=== PATIENT | male | born 1955 | race Caucasian/White ===

== ENCOUNTER 2016-09-19 11:46 | Inpatient (IN) | payer MEDICAID, MEDICARE ==
[2016-09-19 12:54] LABS: Hematocrit 49 % (42-52); Hemoglobin 16.7 g/dl (14.0-18.0); Mean Corpuscular HGB Conc 34 g/dl (31-36); Mean Corpuscular Hemoglobin 30 pg (27-31); Mean Corpuscular Volume 89 fL (80-94); Mean Platelet Volume 9 um3 (7.4-10.4); Red Blood Count 5.51 10^6/ul (4.0-5.4); Red Cell Distribution Width 13 % (10.5-15); White Blood Count 9.8 10^3/ul (3.5-10.8)
[2016-09-19 13:06] LABS: ALT 23 U/L (7-52); AST 19 U/L (13-39); Albumin 4.1 g/dL (3.2-5.2); Alkaline Phosphatase 57 U/L (34-104); Anion Gap 7 mmol/L (2-11); BUN/Creatinine Ratio 19.8 (8-20); Blood Urea Nitrogen 16 mg/dL (6-24); CO2 Carbon Dioxide 24 mmol/L (22-32); Calcium 9.4 mg/dL (8.6-10.3); Chloride 103 mmol/L (101-111); EGFR Non-African American 97.2 (>60); Globulin 3.1 g/dL (2-4); Glucose 107 mg/dL (70-100); Sodium 134 mmol/L (133-145); Total Protein 7.2 g/dL (6.4-8.9)
[2016-09-19 13:35] LABS: Acetaminophen < 15 mcg/mL; Alcohol < 10 mg/dL (<10); Salicylate < 2.50 mg/dL (<30); Valproic Acid < 13.0 mcg/mL (50-100)
[2016-09-19 13:43] LABS: TSH (Thyroid Stimulating Horm) 0.93 mcIU/mL (0.34-5.60)
[2016-09-19 14:59] LABS: Urine Bilirubin Negative (Negative); Urine Glucose Negative (Negative); Urine Nitrite Negative (Negative)
[2016-09-19 15:09] LABS: Benzodiazepine Urine Screen None Detected (None Detect)
[2016-09-19] MEDS ORDERED: diPHENhydraMINE PO* 50 MG PO ONE (21:19)
[2016-09-19] MEDS ORDERED: LORazepam TAB(*) 1 MG PO ONE (21:19)
[2016-09-19] MEDS ORDERED: Haloperidol TAB* 5 MG PO ONE (21:19)
--- NOTE | 2016-09-19 22:54 | ED ---
Karen Rose Alok, scribed for Lorne Mijares MD on 09/19/16 at 1336 . Psychiatric Complaint - HPI Summary HPI Summary: 60 y/o male presents to the ED with delusions, disjointed thoughts, and no apparent connection to reality. Pt has h/o bipolarism with medications that he has not been taking. - History Of Current Complaint Chief Complaint: EDMentalHealth Time Seen by Provider: 09/19/16 13:12 Hx Obtained From: Patient Onset/Duration: Gradual Onset, Lasting Days, Still Present Timing: Constant Severity Initially: Moderate Severity Currently: Moderate Aggravating Factor(s): Nothing Alleviating Factor(s): Nothing Associated Signs And Symptoms: Positive: Confused - Allergies/Home Medications Allergies/Adverse Reactions: Allergies Allergy/AdvReac Type Severity Reaction Status Date / Time No Known Allergies Allergy Verified 01/24/13 12:02 Home Medications: Home Medications ARIPiprazole TAB* [Abilify 15 MG TAB*] 15 mg PO DAILY 09/19/16 [History Confirmed 09/19/16] Bupropion HCl [Wellbutrin Sr] 150 mg PO DAILY 09/19/16 [History Confirmed ] Divalproex Sodium [Depakote ER] 2,000 mg PO BEDTIME 09/19/16 [History Confirmed 09/19/16] Mobic 15 mg PO DAILY 09/19/16 [History Confirmed 09/19/16] Vitamin D3 1,000 units PO DAILY 09/19/16 [History Confirmed 09/19/16] PMH/Surg Hx/FS Hx/Imm Hx Endocrine/Hematology History: Denies: Hx Anticoagulant Therapy, Hx Diabetes, Hx Thyroid Disease Cardiovascular History: Denies: Hx Hypertension, Hx Pacemaker/ICD Respiratory History: Reports: Hx Chronic Obstructive Pulmonary Disease (COPD) Denies: Hx Asthma History: Denies: Hx Renal Disease Neurological History: Denies: Hx Dementia, Hx Seizures Psychiatric History: Reports: Hx Substance Abuse - Surgical History Surgery Procedure, Year, and Place: abdominal surgery - removal of ganglion. 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 Infectious Disease History: No Infectious Disease History: Denies: Hx Hepatitis, Hx Human Immunodeficiency Virus (HIV), History Other Infectious Disease, Traveled Outside the [place] in Last 30 Days - Family History Known Family History: Negative: Cardiac Disease, Hypertension, Diabetes - Social History Occupation: Employed Full-time Substance Use Type: Reports: None Review of Systems Negative: Fever ENT: Negative Cardiovascular: Negative Respiratory: Negative Gastrointestinal: Negative Genitourinary: Negative Musculoskeletal: Negative Skin: Negative Neurological: Negative Positive: Other - confused All Other Systems Reviewed And Are Negative: Yes Physical Exam Triage Information Reviewed: Yes Vital Signs On Initial Exam: Initial Vitals Temp Pulse Resp BP Pulse Ox 97.6 F 87 12 149/83 97 09/19/16 12:14 09/19/16 12:14 09/19/16 12:14 09/19/16 12:14 09/19/16 12:14 Vital Signs Reviewed: Yes Appearance: Positive: Well-Appearing - Patient appears disjointed from reality with apparent delusions, No Pain Distress Skin: Positive: Warm, Skin Color Reflects Adequate Perfusion, Dry Head/Face: Positive: Normal Head/Face Inspection Eyes: Positive: EOMI, KARTHIK ENT: Positive: Normal ENT inspection Neck: Positive: Supple, Nontender Respiratory/Lung Sounds: Positive: Clear to Auscultation, Breath Sounds Present Cardiovascular: Positive: RRR Abdomen Description: Positive: Nontender, Soft Bowel Sounds: Positive: Present Musculoskeletal: Positive: Normal, Strength/ROM Intact Neurological: Positive: Normal, Sensory/Motor Intact, Alert, Oriented to Person Place, Time Psychiatric: Positive: Other - Patient appears disjointed from reality with apparent delusions. Diagnostics - Vital Signs Vital Signs Temp Pulse Resp BP Pulse Ox 09/19/16 12:14 97.6 F 87 12 149/83 97 - Laboratory Lab Results: Lab Results 09/19/16 09/19/16 Range/Units 12:10 12:10 WBC 9.8 (3.5-10.8) 10^3/ul RBC 5.51 H (4.0-5.4) 10^6/ul Hgb 16.7 (14.0-18.0) g/dl Hct 49 (42-52) % MCV 89 (80-94) fL MCH 30 (27-31) pg MCHC 34 (31-36) g/dl RDW 13 (10.5-15) % Plt Count 254 (150-450) 10^3/ul MPV 9 (7.4-10.4) um3 Neut % (Auto) 64.9 (38-83) % Lymph % (Auto) 18.8 L (25-47) % [place] % (Auto) 14.7 H (1-9) % Eos % (Auto) 0.8 (0-6) % Baso % (Auto) 0.8 (0-2) % Absolute Neuts (auto) 6.4 (1.5-7.7) 10^3/ul Absolute Lymphs (auto) 1.8 (1.0-4.8) 10^3/ul Absolute Monos (auto) 1.4 H (0-0.8) 10^3/ul Absolute Eos (auto) 0.1 (0-0.6) 10^3/ul Absolute Basos (auto) 0.1 (0-0.2) 10^3/ul Absolute Nucleated RBC 0.01 10^3/ul Nucleated RBC % 0.1 Sodium 134 (133-145) mmol/L Potassium 4.0 (3.5-5.0) mmol/L Chloride 103 (101-111) mmol/L Carbon Dioxide 24 (22-32) mmol/L Anion Gap 7 (2-11) mmol/L BUN 16 (6-24) mg/dL Creatinine 0.81 (0.67-1.17) mg/dL Est GFR ( Amer) 125.0 (>60) Est GFR (Non-Af Amer) 97.2 (>60) BUN/Creatinine Ratio 19.8 (8-20) Glucose 107 H (70-100) mg/dL Calcium 9.4 (8.6-10.3) mg/dL Total Bilirubin 0.50 (0.2-1.0) mg/dL AST 19 (13-39) U/L ALT 23 (7-52) U/L Alkaline Phosphatase 57 (34-104) U/L Total Protein 7.2 (6.4-8.9) g/dL Albumin 4.1 (3.2-5.2) g/dL Globulin 3.1 (2-4) g/dL Albumin/Globulin Ratio 1.3 (1-3) TSH Pending Salicylates Pending Acetaminophen Pending Valproic Acid Pending Serum Alcohol Pending Result Diagrams: 09/19/16 12:10 09/19/16 12:10 Lab Statement: Any lab studies that have been ordered have been reviewed, and results considered in the medical decision making process. Course/Dx - Course Course Of Treatment: NO CRITICAL CARE TIME Assessment/Plan: DISPOSITION/MHE PENDING AT SHIFT CHANGE. - Differential Dx/Clinical Impression Provider Diagnosis: Mental health problem Discharge - Discharge Plan Condition: Stable Disposition: PSYCHIATRIC FACILITY-[facility] [place] Referrals: Earline Phillips MS [Primary Care Provider] - The documentation as recorded by the Karen maxwell Alok accurately reflects the service I personally performed and the decisions made by , Lorne Mijares MD.
[2016-09-20] MEDS ORDERED: ARIPiprazole TAB* 15 MG PO ONE (08:57)
[2016-09-20] MEDS ORDERED: buPROPion SR TAB.SR* 150 MG PO ONE (08:57)
[2016-09-20] MEDS ORDERED: Furosemide TAB* 40 MG PO ONE (08:57)
[2016-09-20] MEDS: Divalproex ER TAB(*) 500 MG PO SCH (23:32)
[2016-09-21] MEDS: Terazosin CAP* 1 MG PO SCH ×2 (04:04→21:13)
[2016-09-21] MEDS: Furosemide TAB* 40 MG PO SCH ×2 (04:04→10:16)
[2016-09-21] MEDS: ARIPiprazole TAB* 15 MG PO SCH ×2 (04:05→10:17)
[2016-09-21] MEDS: BuPROPion XL* 150 MG TAB.XL PO SCH (10:17)
[2016-09-21] MEDS: Cholecalciferol TAB* 1000 UNITS PO SCH ×2 (10:17→10:29)
--- NOTE | 2016-09-21 11:57 | PN ---
MHU: Group Therapy Note - Service Type Service Type: 04705 Group Psychotherapy - Cognitive Behavioral Therapy (CBT): Patient presents with high volume of speech that impresses as being coherent within the context of self-report, but is tangential and off topic in group context. Concerns regarding disorganization of thought are apparent.
[2016-09-21] MEDS ORDERED: Mouth Piece, Nicotine* 1 EACH CARTRIDGE INH ONE (16:00)
[2016-09-21] MEDS: Nicotine Inhaler* 10 MG AMP INH PRN (16:35)
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
[2016-09-21] MEDS: Divalproex ER TAB(*) 500 MG PO SCH (21:13)
[2016-09-22] MEDS: BuPROPion XL* 150 MG TAB.XL PO SCH (07:39)
[2016-09-22] MEDS: Furosemide TAB* 40 MG PO SCH (07:39)
[2016-09-22] MEDS: Cholecalciferol TAB* 1000 UNITS PO SCH (07:39)
[2016-09-22] MEDS: ARIPiprazole TAB* 15 MG PO SCH (07:39)
--- NOTE | 2016-09-22 14:25 | PN ---
Subjective - Subjective Service Type: 53217 Hosp care 15 min low complexity Subjective: The patient remains circumstantial and has difficulties arriving at his point when speaking or, in particular, answering questions. He is somewhat perseverative about his sister, Martha, in [place], sending him his shoebox full of medications, as the [place] only dispenses 90 Day supplies at a time with no duplication. I spoke with this sibling, Martha Postal ([phone]), who reiterates that she is incapable of taking care of Jacinto and hoping that he will be placed in some type of supervised setting. She indicates that the girlfriend he visited at the [facility] is there for methamphetamine production charges and has been grifting money from him for several months. Objective - Appearance Appearance: Obese Dysmorphic Features: No Hygiene: Normal Grooming: Disheveled - Behavior Psychomotor Activities: Abnormal-Increased Exhibits Abnormal Movement: Yes - Attitude and Relatedness Attitude and Relatedness: Psychotically Related Eye Contact: Good - Speech Quality: Pressured Latencies: Short Quantity: Copious - Mood Patient's Decription of Mood: "Okay" - Affect Observed Affect: Euphoric Affect Consistent with: Euphoria - Thought Process Patient's Thought Process: Circumstantial Thought Content: Yes Paranoid Ideation, No Passive Wish, No Suicidal Planning, No Homicidal Ideation - Sensorium Experiencing Hallucinations: No, Sensorium is Clear Type of Hallucinations: Visual: No, Auditory: No, Command: No - Level of Consciousness Level of Consciousness: Alert Orientation: Yes Intact, Yes Orientated to Time, Yes Orientated to Place, Yes Orientated to Person - Impulse Control Impulse Control: Poor - Insight and Judgement Insight and Judgement: Impaired - Group Participation Particating in Group Activities: No - Medication Management Medication Management Adherence: Yes Assessment - Assessment Merits Inpatient Hospitalization: For Immediate Safety, For Stabilization Inpatient DSM-IV Dx: Bipolar DO, Type I, MRE Manic, severe with psychotic features Clinical Impression: 60 y.o. , white, male [employer] with a history of chronic cannabis abuse and bipolarity who is admitted involuntarily due to bizarre and disruptive behavior in the community. The patient just came back to the [facility] from [facility], where he has been residing with his sister since 01/10, and has been non-adherent with medications and is now homeless. Plan - Plan Treatment Plan: Name: JACINTO LANDRY SR Birthdate: 1955 [id number] We have continued his outpatient VA medications, including bupropion, Depakote and aripiprazole. Await med effect. Patient will likely need placement. Continued Medication Management: Continue Outpt Medication Medications: Current Medications Aripiprazole (Abilify Tab*) 15 mg PO DAILY SRINIVAS Last Admin: 09/22/16 07:39 Dose: 15 mg Bupropion HCl (Wellbutrin Xl *) 150 mg PO DAILY SRINIVAS PRN Reason: Protocol Last Admin: 09/22/16 07:39 Dose: 150 mg Cholecalciferol (Vitamin D Tab*) 1,000 units PO DAILY SRIINVAS Last Admin: 09/22/16 07:39 Dose: 1,000 units Divalproex Sodium (Depakote Er Tab(*)) 2,000 mg PO BEDTIME SRINIVAS Last Admin: 09/21/16 21:13 Dose: 2,000 mg Furosemide (Lasix Tab*) 40 mg PO DAILY SRINIVAS Last Admin: 09/22/16 07:39 Dose: 40 mg Nicotine (Nicotine Inhaler*) 10 mg INH Q2H PRN PRN Reason: CRAVING Last Admin: 09/21/16 16:35 Dose: 10 mg Terazosin HCl (Hytrin Cap*) 2 mg PO BEDTIME SRINIVAS Last Admin: 09/21/16 21:13 Dose: 2 mg - Discharge Plan Discharge Plan: Inpatient Hospitalization
[2016-09-22] MEDS ORDERED: Mouth Piece, Nicotine* 1 EACH CARTRIDGE ONE (17:52)
[2016-09-22] MEDS: Nicotine Inhaler* 10 MG AMP INH PRN (17:52)
[2016-09-22] MEDS: Acetaminophen TAB* 325 MG PO PRN (18:16)
[2016-09-22] MEDS: Divalproex ER TAB(*) 500 MG PO SCH (21:06)
[2016-09-22] MEDS: Terazosin CAP* 1 MG PO SCH (21:07)
[2016-09-23] MEDS: BuPROPion XL* 150 MG TAB.XL PO SCH (09:42)
[2016-09-23] MEDS: ARIPiprazole TAB* 15 MG PO SCH (09:42)
[2016-09-23] MEDS: Cholecalciferol TAB* 1000 UNITS PO SCH (09:42)
[2016-09-23] MEDS: Furosemide TAB* 40 MG PO SCH (09:42)
[2016-09-23] MEDS: Acetaminophen TAB* 325 MG PO PRN (18:28)
[2016-09-23] MEDS: Terazosin CAP* 1 MG PO SCH (20:27)
[2016-09-23] MEDS: Divalproex ER TAB(*) 500 MG PO SCH (20:27)
[2016-09-24] MEDS: ARIPiprazole TAB* 15 MG PO SCH (08:16)
[2016-09-24] MEDS: Cholecalciferol TAB* 1000 UNITS PO SCH (08:16)
[2016-09-24] MEDS: Furosemide TAB* 40 MG PO SCH (08:16)
[2016-09-24] MEDS: BuPROPion XL* 150 MG TAB.XL PO SCH (08:16)
--- NOTE | 2016-09-24 13:23 | PN ---
Subjective - Subjective Service Type: 91568 Hosp care 15 min low complexity Subjective: Mr. Gill was seen today on follow-up. Case supervision by Dr. Aleks Collado. Today, Mr. Gill reported that he has had a good nights sleep, and reports good appetite. He is currently denying depressive symptoms, and is denying any medication side effects. He was verbose in his responses to questions and at times, circumstantial. He verbalized concerns today over his sister who is his rep payee, and indicated that he wanted a new rep. payee. I encouraged him to discuss issues with his sister first to see if he could resolve any issues with her & he agreed that it "might be best" if he did this. No new issues reported. Reviewed case with Dr. Collado. Objective - Appearance Appearance: Obese Dysmorphic Features: No Hygiene: Normal Grooming: Disheveled - Behavior Psychomotor Activities: Normal Exhibits Abnormal Movement: No - Attitude and Relatedness Attitude and Relatedness: Cooperative Eye Contact: Good - Speech Quality: Unpressured Latencies: Normal Quantity: Copious - Mood Patient's Decription of Mood: "Good" - Affect Observed Affect: Non-labile Affect Consistent with: Euthymia - Thought Process Patient's Thought Process: Circumstantial - At times Thought Content: No Passive Wish, No Suicidal Planning, No Homicidal Ideation, No Paranoid Ideation - Sensorium Experiencing Hallucinations: No, Sensorium is Clear - Level of Consciousness Level of Consciousness: Alert Orientation: Yes Intact - Impulse Control Impulse Control: Poor - Insight and Judgement Insight and Judgement: Impaired Assessment - Assessment Inpatient DSM-IV Dx: Bipolar DO, Type I, MRE Manic, severe with psychotic features Clinical Impression: Mr. Gill is a 60 year old male admitted to [facility] with bipolar disorder and cannabis use disorder, secondary to bizarre behavior. He remains in fair behavioral control, and appears to be accepting of treatment. Symptom control entirely too tenuous at present to consider discharge. Plan - Plan Treatment Plan: Name: ANASTASIA GILL SR Birthdate: 1955 [id number] Medications: Current Medications Acetaminophen (Tylenol Tab*) 650 mg PO Q4H PRN PRN Reason: PAIN Last Admin: 09/23/16 18:28 Dose: 650 mg Aripiprazole (Abilify Tab*) 15 mg PO DAILY SRINIVAS Last Admin: 09/24/16 08:16 Dose: 15 mg Bupropion HCl (Wellbutrin Xl *) 150 mg PO DAILY SRINIVAS PRN Reason: Protocol Last Admin: 09/24/16 08:16 Dose: 150 mg Cholecalciferol (Vitamin D Tab*) 1,000 units PO DAILY SRINIVAS Last Admin: 09/24/16 08:16 Dose: 1,000 units Divalproex Sodium (Depakote Er Tab(*)) 2,000 mg PO BEDTIME SRINIVAS Last Admin: 09/23/16 20:27 Dose: 2,000 mg Furosemide (Lasix Tab*) 40 mg PO DAILY SRINIVAS Last Admin: 09/24/16 08:16 Dose: 40 mg Nicotine (Nicotine Inhaler*) 10 mg INH Q2H PRN PRN Reason: CRAVING Last Admin: 09/22/16 17:52 Dose: 10 mg Terazosin HCl (Hytrin Cap*) 2 mg PO BEDTIME SRINIVAS Last Admin: 09/23/16 20:27 Dose: 2 mg
[2016-09-24] MEDS: Terazosin CAP* 1 MG PO SCH (20:55)
[2016-09-24] MEDS: Divalproex ER TAB(*) 500 MG PO SCH (20:55)
[2016-09-25] MEDS: Acetaminophen TAB* 325 MG PO PRN (06:28)
[2016-09-25] MEDS: Furosemide TAB* 40 MG PO SCH (09:54)
[2016-09-25] MEDS: ARIPiprazole TAB* 15 MG PO SCH (09:54)
[2016-09-25] MEDS: BuPROPion XL* 150 MG TAB.XL PO SCH (09:54)
[2016-09-25] MEDS: Cholecalciferol TAB* 1000 UNITS PO SCH (09:54)
[2016-09-25] MEDS: Nicotine Inhaler* 10 MG AMP INH PRN (13:24)
--- NOTE | 2016-09-25 13:29 | PN ---
Subjective - Subjective Service Type: 88089 Hosp care 15 min low complexity Subjective: The patient is calm and cooperative and has not represented any behavioral challenges on the unit. He gives me the name and phone number today of a cousin , Andres Knutson, who lives in [place], whom he states he can live with. The patient denies SI or HI. Objective - Appearance Appearance: Obese Dysmorphic Features: No Hygiene: Normal Grooming: Fairly Well Kept - Behavior Psychomotor Activities: Abnormal-Increased Exhibits Abnormal Movement: Yes - Attitude and Relatedness Attitude and Relatedness: Cooperative Eye Contact: Good - Speech Quality: Unpressured Latencies: Normal Quantity: Copious - Mood Patient's Decription of Mood: "Great" - Affect Observed Affect: Good Affect Consistent with: Euthymia - Thought Process Patient's Thought Process: Coherent, Circumstantial Thought Content: Yes Paranoid Ideation, No Passive Wish, No Suicidal Planning, No Homicidal Ideation - Sensorium Experiencing Hallucinations: No, Sensorium is Clear Type of Hallucinations: Visual: No, Auditory: No, Command: No - Level of Consciousness Level of Consciousness: Alert Orientation: Yes Intact, Yes Orientated to Time, Yes Orientated to Place, Yes Orientated to Person - Impulse Control Impulse Control: Tenuous - Insight and Judgement Insight and Judgement: Fair - Group Participation Particating in Group Activities: No - Medication Management Medication Management Adherence: Yes Assessment - Assessment Merits Inpatient Hospitalization: Consolidate Improvements, Pending Safe DC Plan Inpatient DSM-IV Dx: Bipolar DO, Type I, MRE Manic, severe with psychotic features Clinical Impression: 60 y.o. , white, male [employer] with a history of chronic cannabis abuse and bipolarity who is admitted involuntarily due to bizarre and disruptive behavior in the community. The patient just came back to the [facility] from [facility], where he has been residing with his sister since 01/10, and has been non-adherent with medications and is now homeless. Plan - Plan Treatment Plan: Name: ANASTASIA LANDRY Birthdate: 1955 [id number] We have continued his outpatient [facility] medications, including bupropion, Depakote and aripiprazole. Will check lipids, HgbA1c and VPA level in the AM. Patient will likely need placement. Continued Medication Management: Continue Outpt Medication Medications: Current Medications Acetaminophen (Tylenol Tab*) 650 mg PO Q4H PRN PRN Reason: PAIN Last Admin: 09/25/16 06:28 Dose: 650 mg Aripiprazole (Abilify Tab*) 15 mg PO DAILY [facility] Last Admin: 09/25/16 09:54 Dose: 15 mg Bupropion HCl (Wellbutrin Xl *) 150 mg PO DAILY [facility] PRN Reason: Protocol Last Admin: 09/25/16 09:54 Dose: 150 mg Cholecalciferol (Vitamin D Tab*) 1,000 units PO DAILY [facility] Last Admin: 09/25/16 09:54 Dose: 1,000 units Divalproex Sodium (Depakote Er Tab(*)) 2,000 mg PO BEDTIME [facility] Last Admin: 09/24/16 20:55 Dose: 2,000 mg Furosemide (Lasix Tab*) 40 mg PO DAILY [facility] Last Admin: 09/25/16 09:54 Dose: 40 mg Nicotine (Nicotine Inhaler*) 10 mg INH Q2H PRN PRN Reason: CRAVING Last Admin: 09/25/16 13:24 Dose: 10 mg Terazosin HCl (Hytrin Cap*) 2 mg PO BEDTIME [facility] Last Admin: 09/24/16 20:55 Dose: 2 mg - Discharge Plan Discharge Plan: Inpatient Hospitalization
[2016-09-25] MEDS: Divalproex ER TAB(*) 500 MG PO SCH (21:46)
[2016-09-25] MEDS: Terazosin CAP* 1 MG PO SCH (21:47)
[2016-09-26 09:11] LABS: HDL Cholesterol 59.2 mg/dL
[2016-09-26] MEDS: BuPROPion XL* 150 MG TAB.XL PO SCH (09:30)
[2016-09-26] MEDS: ARIPiprazole TAB* 15 MG PO SCH (09:30)
[2016-09-26] MEDS: Cholecalciferol TAB* 1000 UNITS PO SCH (09:30)
[2016-09-26] MEDS: Furosemide TAB* 40 MG PO SCH (09:32)
--- NOTE | 2016-09-26 10:56 | PN ---
Subjective - Subjective Service Type: 42133 Hosp care 15 min low complexity Subjective: Jacinto is calm and cooperative. Requesting d/c to his cousin Cynthias in [place], [place]. staff indicates we have not yet been able to contact this relative. The patient is tolerating his medications well and is better organized than admission, although his sister, interacting with , expressed her opinion that Jacinto is not yet back to his baseline. His speech is somewhat rambling and he is fixated on visiting his girlfriend in the [facility] long term, where she is incarcerated on drug charges. Objective - Appearance Appearance: Obese Hygiene: Normal Grooming: Fairly Well Kept - Behavior Psychomotor Activities: Normal Exhibits Abnormal Movement: No - Attitude and Relatedness Attitude and Relatedness: Cooperative Eye Contact: Good - Speech Quality: Unpressured Latencies: Normal Quantity: Appropriate - Mood Patient's Decription of Mood: "Good" - Affect Observed Affect: Expansive Affect Consistent with: Euthymia - Thought Process Patient's Thought Process: Circumstantial Thought Content: No Passive Wish, No Suicidal Planning, No Homicidal Ideation, No Paranoid Ideation - Sensorium Experiencing Hallucinations: No, Sensorium is Clear Type of Hallucinations: Visual: No, Auditory: No, Command: No - Level of Consciousness Level of Consciousness: Alert - Impulse Control Impulse Control: Tenuous - Insight and Judgement Insight and Judgement: Fair - Group Participation Particating in Group Activities: No - Medication Management Medication Management Adherence: Yes Assessment - Assessment Merits Inpatient Hospitalization: For Immediate Safety, For Stabilization Inpatient DSM-IV Dx: Bipolar DO, Type I, MRE Manic, severe with psychotic features Clinical Impression: 60 y.o. , white, male [employer] with a history of chronic cannabis abuse and bipolarity who is admitted involuntarily due to bizarre and disruptive behavior in the community. The patient just came back to the [facility] from [facility], where he has been residing with his sister since 01/10, and has been non-adherent with medications and is now homeless. Plan - Plan Treatment Plan: Name: JACINTO LANDRY Birthdate: 1955 [id number] We have continued his outpatient VA medications, including bupropion, Depakote and aripiprazole. VPA level is therapeutic. Patient needs placement. Continued Medication Management: Continue Outpt Medication Medications: Current Medications Acetaminophen (Tylenol Tab*) 650 mg PO Q4H PRN PRN Reason: PAIN Last Admin: 09/25/16 06:28 Dose: 650 mg Aripiprazole (Abilify Tab*) 15 mg PO DAILY [facility] Last Admin: 09/26/16 09:30 Dose: 15 mg Bupropion HCl (Wellbutrin Xl *) 150 mg PO DAILY SRINIVAS PRN Reason: Protocol Last Admin: 09/26/16 09:30 Dose: 150 mg Cholecalciferol (Vitamin D Tab*) 1,000 units PO DAILY SR[facility]IV[facility] Last Admin: 09/26/16 09:30 Dose: 1,000 units Divalproex Sodium (Depakote Er Tab(*)) 2,000 mg PO BEDTIME [facility] Last Admin: 09/25/16 21:46 Dose: 2,000 mg Furosemide (Lasix Tab*) 40 mg PO DAILY [facility] Last Admin: 09/26/16 09:32 Dose: 40 mg Nicotine (Nicotine Inhaler*) 10 mg INH Q2H PRN PRN Reason: CRAVING Last Admin: 09/25/16 13:24 Dose: 10 mg Terazosin HCl (Hytrin Cap*) 2 mg PO BEDTIME [facility] Last Admin: 09/25/16 21:47 Dose: 2 mg - Discharge Plan Discharge Plan: Inpatient Hospitalization Lab Results - Lab Results Lab Results: 09/26/16 08:24 Triglycerides 151 Cholesterol 198 LDL Cholesterol 109 HDL Cholesterol 59.2 Valproic Acid 75.0
--- NOTE | 2016-09-26 11:24 | PN ---
MHU: Group Therapy Note - Service Type Service Type: [id number] Group Psychotherapy - Cognitive Behavioral Group Therapy ( CBT):Patient presented in CBT programming as disorganized and disruptive in discussion and needed repeated redirection to attend to presented materials.
[2016-09-26] MEDS: Terazosin CAP* 1 MG PO SCH (20:34)
[2016-09-26] MEDS: Divalproex ER TAB(*) 500 MG PO SCH (20:35)
[2016-09-27] MEDS: Nicotine Inhaler* 10 MG AMP INH PRN ×2 (01:15→20:57)
[2016-09-27] MEDS: BuPROPion XL* 150 MG TAB.XL PO SCH (09:04)
[2016-09-27] MEDS: Furosemide TAB* 40 MG PO SCH (09:05)
[2016-09-27] MEDS: ARIPiprazole TAB* 15 MG PO SCH (09:05)
[2016-09-27] MEDS: Cholecalciferol TAB* 1000 UNITS PO SCH (09:05)
--- NOTE | 2016-09-27 11:19 | PN ---
Subjective - Subjective Service Type: [id number] Hosp care 15 min low complexity Subjective: The patient remains manic and hyperverbal. We spoke with his cousin, Alton Knutson, who indicates that the patient is not yet at his baseline and he cannot provide him a place to live in the community. Family is still advocating for placement in an assisted living setting. The patient only slept one hour last night and he blames this on his not having a CPAP machine to control his sleep apnea. During our meeting today he is tearful and labile, discussing the recent arrest and incarceration of his girlfriend for manufacturing methamphetamine. The patient, who does not use meth, has been sending her money, which concerns his family, as they believe she is using him for this. Objective - Appearance Appearance: Obese Dysmorphic Features: No Hygiene: Normal Grooming: Fairly Well Kept - Behavior Psychomotor Activities: Abnormal-Increased Exhibits Abnormal Movement: Yes - Attitude and Relatedness Attitude and Relatedness: Needy Eye Contact: Fair - Speech Quality: Pressured Latencies: Short Quantity: Copious - Mood Patient's Decription of Mood: "Great" - Affect Observed Affect: Labile Affect Consistent with: Euphoria - Thought Process Patient's Thought Process: Tangential Thought Content: Yes Paranoid Ideation, No Passive Wish, No Suicidal Planning, No Homicidal Ideation - Sensorium Experiencing Hallucinations: No, Sensorium is Clear Type of Hallucinations: Visual: No, Auditory: No, Command: No - Level of Consciousness Level of Consciousness: Alert Orientation: Yes Intact, Yes Orientated to Time, Yes Orientated to Place, Yes Orientated to Person - Impulse Control Impulse Control: Poor - Insight and Judgement Insight and Judgement: Impaired - Group Participation Particating in Group Activities: No - Medication Management Medication Management Adherence: Yes Assessment - Assessment Merits Inpatient Hospitalization: For Immediate Safety, For Stabilization Inpatient DSM-IV Dx: Bipolar DO, Type I, MRE Manic, severe with psychotic features Clinical Impression: 60 y.o. , white, male [employer] with a history of chronic cannabis abuse and bipolarity who is admitted involuntarily due to bizarre and disruptive behavior in the community. The patient just came [facility] the [facility], where he has been residing with his sister since 01/10, and has been non-adherent with medications and is now homeless. Plan - Plan Treatment Plan: Name: ANASTASIA LANDRY Birthdate: 1955 [id number] Despite having a therapeutic VPA level (75) he remains manic. We will d/c bupropion and increase aripiprazole to 20mg PO BID. We will order a CPAP machine and respiratory consult for his sleep apnea issues. Patient needs placement. Continued Medication Management: Different Medication Medications: Current Medications Acetaminophen (Tylenol Tab*) 650 mg PO Q4H PRN PRN Reason: PAIN Last Admin: 09/25/16 06:28 Dose: 650 mg Aripiprazole (Abilify Tab*) 20 mg PO DAILY [facility] Cholecalciferol (Vitamin D Tab*) 1,000 units PO DAILY [facility] Last Admin: 09/27/16 09:05 Dose: 1,000 units Divalproex Sodium (Depakote Er Tab(*)) 2,000 mg PO BEDTIME [facility] Last Admin: 09/26/16 20:35 Dose: 2,000 mg Furosemide (Lasix Tab*) 40 mg PO DAILY [facility] Last Admin: 09/27/16 09:05 Dose: 40 mg Nicotine (Nicotine Inhaler*) 10 mg INH Q2H PRN PRN Reason: CRAVING Last Admin: 09/27/16 01:15 Dose: 10 mg Terazosin HCl (Hytrin Cap*) 2 mg PO BEDTIME [facility] Last Admin: 09/26/16 20:34 Dose: 2 mg Zolpidem Tartrate (Ambien Tab*) 5 mg PO BEDTIME [facility] - Discharge Plan Discharge Plan: Inpatient Hospitalization
--- NOTE | 2016-09-27 11:43 | PN ---
MHU: Group Therapy Note - Service Type Service Type: [id number] Group Psychotherapy - Cognitive Behavioral Group Therapy ( CBT):Patient presented in CBT programming as disorganized and disruptive in discussion and needed repeated redirection to attend to presented materials.
[2016-09-27] MEDS: Divalproex ER TAB(*) 500 MG PO SCH (20:52)
[2016-09-27] MEDS: Terazosin CAP* 1 MG PO SCH (20:53)
[2016-09-27] MEDS: Zolpidem TAB* 5 MG PO SCH ×2 (20:53→22:49)
[2016-09-27] MEDS ORDERED: Mouth Piece, Nicotine* 1 EACH CARTRIDGE ONE (20:56)
[2016-09-28] MEDS: Acetaminophen TAB* 325 MG PO PRN ×2 (04:58→20:54)
[2016-09-28] MEDS: Furosemide TAB* 40 MG PO SCH (09:15)
[2016-09-28] MEDS: ARIPiprazole TAB* 20 MG PO SCH (09:15)
[2016-09-28] MEDS: Cholecalciferol TAB* 1000 UNITS PO SCH (09:16)
--- NOTE | 2016-09-28 13:30 | PN ---
MHU: Group Therapy Note - Service Type Service Type: 11414 Group Psychotherapy - Cognitive Behavioral Group Therapy ( CBT):Patient presented in CBT programming as disorganized and disruptive in discussion and needed repeated redirection to attend to presented materials.
--- NOTE | 2016-09-28 13:53 | PN ---
Subjective - Subjective Service Type: 15662 Hosp care 15 min low complexity Subjective: The patient remains manic and with poor insight. His god-daughter is visiting the unit and he requests permission to get his MAG[employer] card out of his belongings to give to her so she can buy some watches. He has been giving away his money freely of late and his siblings note that this is a sign of instability from his mental illness. He only slept 3 hours last night, despite initiation of zolpidem. He awaits being fitted for a CPAP device by Respiratory service. Objective - Appearance Appearance: Obese Dysmorphic Features: No Hygiene: Normal Grooming: Fairly Well Kept - Behavior Psychomotor Activities: Abnormal-Increased Exhibits Abnormal Movement: Yes - Attitude and Relatedness Attitude and Relatedness: Cooperative Eye Contact: Fair - Speech Quality: Pressured Latencies: Short Quantity: Copious - Mood Patient's Decription of Mood: "Great" - Affect Observed Affect: Euphoric Affect Consistent with: Euphoria - Thought Process Patient's Thought Process: Circumstantial Thought Content: Yes Paranoid Ideation, No Passive Wish, No Suicidal Planning, No Homicidal Ideation - Sensorium Experiencing Hallucinations: No, Sensorium is Clear Type of Hallucinations: Visual: No, Auditory: No, Command: No - Level of Consciousness Level of Consciousness: Alert Orientation: Yes Intact, Yes Orientated to Time, Yes Orientated to Place, Yes Orientated to Person - Impulse Control Impulse Control: Poor - Insight and Judgement Insight and Judgement: Impaired - Group Participation Particating in Group Activities: No - Medication Management Medication Management Adherence: Yes Assessment - Assessment Merits Inpatient Hospitalization: For Immediate Safety, For Stabilization Inpatient DSM-IV Dx: Bipolar DO, Type I, MRE Manic, severe with psychotic features Clinical Impression: 60 y.o. , white, male [employer] with a history of chronic cannabis abuse and bipolarity who is admitted involuntarily due to bizarre and disruptive behavior in the community. The patient just came back to the [facility] from [facility], where he has been residing with his sister since 01/10, and has been non-adherent with medications and is now homeless. Plan - Plan Treatment Plan: Name: ANASTASIA LANDRY Birthdate: 1955 [id number] Despite having a therapeutic VPA level (75) he remains manic. We have discontinued bupropion and increased aripiprazole to 20mg PO Qday. We await a CPAP machine and respiratory consult for his sleep apnea issues. Patient needs placement. Continued Medication Management: Different Medication Medications: Current Medications Acetaminophen (Tylenol Tab*) 650 mg PO Q4H PRN PRN Reason: PAIN Last Admin: 09/28/16 04:58 Dose: 650 mg Aripiprazole (Abilify Tab*) 20 mg PO DAILY [facility] Last Admin: 09/28/16 09:15 Dose: 20 mg Cholecalciferol (Vitamin D Tab*) 1,000 units PO DAILY [facility] Last Admin: 09/28/16 09:16 Dose: 1,000 units Divalproex Sodium (Depakote Er Tab(*)) 2,000 mg PO BEDTIME [facility] Last Admin: 09/27/16 20:52 Dose: 2,000 mg Furosemide (Lasix Tab*) 40 mg PO DAILY [facility] Last Admin: 09/28/16 09:15 Dose: 40 mg Nicotine (Nicotine Inhaler*) 10 mg INH Q2H PRN PRN Reason: CRAVING Last Admin: 09/27/16 20:57 Dose: 10 mg Terazosin HCl (Hytrin Cap*) 2 mg PO BEDTIME [facility] Last Admin: 09/27/16 20:53 Dose: 2 mg Zolpidem Tartrate (Ambien Tab*) 5 mg PO BEDTIME [facility] Last Admin: 09/27/16 22:49 Dose: 5 mg - Discharge Plan Discharge Plan: Inpatient Hospitalization
[2016-09-28] MEDS: Divalproex ER TAB(*) 500 MG PO SCH (20:51)
[2016-09-28] MEDS: Terazosin CAP* 1 MG PO SCH (20:52)
[2016-09-28] MEDS: Zolpidem TAB* 5 MG PO SCH (21:54)
[2016-09-29] MEDS: ARIPiprazole TAB* 20 MG PO SCH (09:15)
[2016-09-29] MEDS: Cholecalciferol TAB* 1000 UNITS PO SCH (09:15)
[2016-09-29] MEDS: Furosemide TAB* 40 MG PO SCH (09:15)
--- NOTE | 2016-09-29 15:39 | PN ---
Subjective - Subjective Service Type: 00158 Hosp care 15 min low complexity Subjective: Jacinto had his "God-daughter" visit the unit yesterday and staff had the impression that she might be a sex worker. He asked for his MAGNUS in order to give it to her and she showed staff a box of watches she wanted him to buy from her. Staff did not allow him to access [employer] or his debit card and the visit was truncated. He remains manic and hyperverbal. He is homeless and family is not capable of taking him in. Objective - Appearance Appearance: Well Developed/Nourished, Obese Dysmorphic Features: No Hygiene: Normal Grooming: Fairly Well Kept - Behavior Psychomotor Activities: Normal Exhibits Abnormal Movement: No - Attitude and Relatedness Attitude and Relatedness: Needy Eye Contact: Poor - Speech Quality: Pressured Latencies: Short Quantity: Copious - Mood Patient's Decription of Mood: "Great" - Affect Observed Affect: Euphoric Affect Consistent with: Euphoria - Thought Process Patient's Thought Process: Tangential Thought Content: Yes Paranoid Ideation, No Passive Wish, No Suicidal Planning, No Homicidal Ideation - Sensorium Experiencing Hallucinations: No, Sensorium is Clear Type of Hallucinations: Visual: No, Auditory: No, Command: No - Level of Consciousness Level of Consciousness: Alert Orientation: Yes Intact, Yes Orientated to Time, Yes Orientated to Place, Yes Orientated to Person - Impulse Control Impulse Control: Poor - Insight and Judgement Insight and Judgement: Impaired - Group Participation Particating in Group Activities: No - Medication Management Medication Management Adherence: Yes Assessment - Assessment Merits Inpatient Hospitalization: For Immediate Safety, For Stabilization Inpatient DSM-IV Dx: Bipolar DO, Type I, MRE Manic, severe with psychotic features Clinical Impression: 60 y.o. , white, male [employer] with a history of chronic cannabis abuse and bipolarity who is admitted involuntarily due to bizarre and disruptive behavior in the community. The patient just came back to the [facility] from [facility], where he has been residing with his sister since 01/10, and has been non-adherent with medications and is now homeless. Plan - Plan Treatment Plan: Name: JACINTO LANDRY Birthdate: 1955 [id number] Despite having a therapeutic VPA level (75) he remains manic. We have discontinued bupropion and increased aripiprazole to 20mg PO Qday. We await a CPAP machine and respiratory consult for his sleep apnea issues. Patient needs placement. Continued Medication Management: Different Medication Medications: Current Medications Acetaminophen (Tylenol Tab*) 650 mg PO Q4H PRN PRN Reason: PAIN Last Admin: 09/28/16 20:54 Dose: 650 mg Aripiprazole (Abilify Tab*) 20 mg PO DAILY [facility] Last Admin: 09/29/16 09:15 Dose: 20 mg Cholecalciferol (Vitamin D Tab*) 1,000 units PO DAILY [facility] Last Admin: 09/29/16 09:15 Dose: 1,000 units Divalproex Sodium (Depakote Er Tab(*)) 2,000 mg PO BEDTIME [facility] Last Admin: 09/28/16 20:51 Dose: 2,000 mg Furosemide (Lasix Tab*) 40 mg PO DAILY [facility] Last Admin: 09/29/16 09:15 Dose: 40 mg Nicotine (Nicotine Inhaler*) 10 mg INH Q2H PRN PRN Reason: CRAVING Last Admin: 09/27/16 20:57 Dose: 10 mg Terazosin HCl (Hytrin Cap*) 2 mg PO BEDTIME [facility] Last Admin: 09/28/16 20:52 Dose: 2 mg Zolpidem Tartrate (Ambien Tab*) 5 mg PO BEDTIME [facility] Last Admin: 09/28/16 21:54 Dose: 5 mg - Discharge Plan Discharge Plan: Inpatient Hospitalization
[2016-09-29] MEDS: Hydrocortisone 1% CREAM* 30 GM TUBE TOPICAL SCH ×2 (16:15→20:13)
[2016-09-29] MEDS: Acetaminophen TAB* 325 MG PO PRN (18:57)
[2016-09-29] MEDS: Divalproex ER TAB(*) 500 MG PO SCH (20:12)
[2016-09-29] MEDS: Terazosin CAP* 1 MG PO SCH (20:12)
[2016-09-29] MEDS: Zolpidem TAB* 5 MG PO SCH (22:30)
[2016-09-30] MEDS: ARIPiprazole TAB* 20 MG PO SCH ×2 (08:01→20:15)
[2016-09-30] MEDS: Furosemide TAB* 40 MG PO SCH (08:02)
[2016-09-30] MEDS: Cholecalciferol TAB* 1000 UNITS PO SCH (08:02)
[2016-09-30] MEDS: Hydrocortisone 1% CREAM* 30 GM TUBE TOPICAL SCH ×3 (08:04→20:16)
[2016-09-30] MEDS: Terazosin CAP* 1 MG PO SCH (20:14)
[2016-09-30] MEDS: Acetaminophen TAB* 325 MG PO PRN (20:14)
[2016-09-30] MEDS: Divalproex ER TAB(*) 500 MG PO SCH (20:15)
[2016-09-30] MEDS: Zolpidem TAB* 5 MG PO SCH (21:59)
[2016-10-01] MEDS: Nicotine Inhaler* 10 MG AMP INH PRN (07:26)
[2016-10-01] MEDS: Furosemide TAB* 40 MG PO SCH (07:49)
[2016-10-01] MEDS: Acetaminophen TAB* 325 MG PO PRN (07:49)
[2016-10-01] MEDS: Cholecalciferol TAB* 1000 UNITS PO SCH (07:49)
[2016-10-01] MEDS: Hydrocortisone 1% CREAM* 30 GM TUBE TOPICAL SCH ×3 (07:51→22:32)
[2016-10-01] MEDS ORDERED: ARIPiprazole TAB* 20 MG PO SCH (21:00)
[2016-10-01] MEDS: Terazosin CAP* 1 MG PO SCH (21:24)
[2016-10-01] MEDS: ARIPiprazole TAB* 20 MG PO SCH (21:24)
[2016-10-01] MEDS: Divalproex ER TAB(*) 500 MG PO SCH (21:24)
[2016-10-01] MEDS: Zolpidem TAB* 5 MG PO SCH (22:25)
[2016-10-02] MEDS: Acetaminophen TAB* 325 MG PO PRN ×3 (01:20→19:33)
[2016-10-02] MEDS: Cholecalciferol TAB* 1000 UNITS PO SCH (08:57)
[2016-10-02] MEDS: Furosemide TAB* 40 MG PO SCH (08:57)
[2016-10-02] MEDS: Hydrocortisone 1% CREAM* 30 GM TUBE TOPICAL SCH ×3 (09:45→20:20)
--- NOTE | 2016-10-02 13:30 | PN ---
Subjective - Subjective Service Type: 98817 Hosp care 15 min low complexity Subjective: The patient remains labile and is not sleeping more than 3.5 hours per night. He is intrusive with peers and was observed shouting at a male peer, who was himself acting out, on the unit. There is still no coherent d/c plan as he is homeless and family is refusing allow him to stay with them. He remains poorly kempt and messy with his food tray and belongings on the milieu. Objective - Appearance Appearance: Obese Dysmorphic Features: No Hygiene: Mal-odorous Grooming: Disheveled - Behavior Psychomotor Activities: Abnormal-Increased Exhibits Abnormal Movement: Yes - Attitude and Relatedness Attitude and Relatedness: Cooperative Eye Contact: Fair - Speech Quality: Pressured Latencies: Short Quantity: Copious - Mood Patient's Decription of Mood: "Great" - Affect Observed Affect: Labile Affect Consistent with: Euphoria - Thought Process Patient's Thought Process: Tangential Thought Content: No Passive Wish, No Suicidal Planning, No Homicidal Ideation, No Paranoid Ideation - Sensorium Experiencing Hallucinations: No, Sensorium is Clear Type of Hallucinations: Visual: No, Auditory: No, Command: No - Level of Consciousness Level of Consciousness: Alert Orientation: Yes Intact, Yes Orientated to Time, Yes Orientated to Place, Yes Orientated to Person - Impulse Control Impulse Control: Poor - Insight and Judgement Insight and Judgement: Impaired - Group Participation Particating in Group Activities: No - Medication Management Medication Management Adherence: Yes Assessment - Assessment Merits Inpatient Hospitalization: For Immediate Safety, For Stabilization Inpatient DSM-IV Dx: Bipolar DO, Type I, MRE Manic, severe with psychotic features Clinical Impression: 60 y.o. , white, male [employer] with a history of chronic cannabis abuse and bipolarity who is admitted involuntarily due to bizarre and disruptive behavior in the community. The patient just came back to the [facility] from [facility], where he has been residing with his sister since 01/10, and has been non-adherent with medications and is now homeless. Plan - Plan Treatment Plan: Name: ANASTASIA LANDRY Birthdate: 1955 [id number] Despite having a therapeutic VPA level (75) he remains manic. Recheck VPA level in AM. We will add clonazepam 0.5mg PO BID and titrate this if needed. We have discontinued bupropion and increased aripiprazole to 20mg PO Qday. Patient needs placement. Continued Medication Management: Different Medication Medications: Current Medications Acetaminophen (Tylenol Tab*) 650 mg PO Q4H PRN PRN Reason: PAIN Last Admin: 10/02/16 08:57 Dose: 650 mg Aripiprazole (Abilify Tab*) 20 mg PO BEDTIME [facility] Last Admin: 10/01/16 21:24 Dose: 20 mg Cholecalciferol (Vitamin D Tab*) 1,000 units PO DAILY [facility] Last Admin: 10/02/16 08:57 Dose: 1,000 units Divalproex Sodium (Depakote Er Tab(*)) 2,000 mg PO BEDTIME [facility] Last Admin: 10/01/16 21:24 Dose: 2,000 mg Furosemide (Lasix Tab*) 40 mg PO DAILY [facility] Last Admin: 10/02/16 08:57 Dose: 40 mg Hydrocortisone (Hytone Cream 1%*) 1 applic TOPICAL TID SR[facility]IVAS Last Admin: 10/02/16 12:51 Dose: Not Given Nicotine (Nicotine Inhaler*) 10 mg INH Q2H PRN PRN Reason: CRAVING Last Admin: 10/01/16 07:26 Dose: 10 mg Terazosin HCl (Hytrin Cap*) 2 mg PO BEDTIME [facility]AS Last Admin: 10/01/16 21:24 Dose: 2 mg Zolpidem Tartrate (Ambien Tab*) 5 mg PO BEDTIME [facility] Last Admin: 10/01/16 22:25 Dose: 5 mg - Discharge Plan Discharge Plan: Inpatient Hospitalization
[2016-10-02] MEDS: ARIPiprazole TAB* 20 MG PO SCH (20:19)
[2016-10-02] MEDS: clonazePAM TAB(*) 0.5 MG PO SCH (20:19)
[2016-10-02] MEDS: Zolpidem TAB* 5 MG PO SCH (20:20)
[2016-10-02] MEDS: Divalproex ER TAB(*) 500 MG PO SCH (20:20)
[2016-10-02] MEDS: Terazosin CAP* 1 MG PO SCH (20:20)
[2016-10-03] MEDS: Cholecalciferol TAB* 1000 UNITS PO SCH (09:35)
[2016-10-03] MEDS: clonazePAM TAB(*) 0.5 MG PO SCH ×2 (09:35→20:59)
[2016-10-03] MEDS: Furosemide TAB* 40 MG PO SCH (09:35)
[2016-10-03] MEDS: Hydrocortisone 1% CREAM* 30 GM TUBE TOPICAL SCH ×3 (09:36→20:59)
[2016-10-03] MEDS: Acetaminophen TAB* 325 MG PO PRN ×2 (09:57→13:50)
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
--- NOTE | 2016-10-03 11:24 | PN ---
MHU: Group Therapy Note - Service Type Service Type: [id number] Group Psychotherapy - Cognitive Behavioral Group Therapy ( CBT):Patient attended CBT programming this morning and presented with flat affect that did not vary with discussion. Although responsive to direct prompts to respond to questions, patient did not engage in spontaneous conversation.
[2016-10-03] MEDS: Terazosin CAP* 1 MG PO SCH (20:59)
[2016-10-03] MEDS: Divalproex ER TAB(*) 500 MG PO SCH (20:59)
[2016-10-03] MEDS: ARIPiprazole TAB* 20 MG PO SCH (20:59)
[2016-10-03] MEDS: Zolpidem TAB* 5 MG PO SCH (22:47)
[2016-10-04] MEDS: Furosemide TAB* 40 MG PO SCH (09:14)
[2016-10-04] MEDS: clonazePAM TAB(*) 0.5 MG PO SCH (09:14)
[2016-10-04] MEDS: Cholecalciferol TAB* 1000 UNITS PO SCH (09:14)
[2016-10-04] MEDS: Nicotine Inhaler* 10 MG AMP INH PRN (09:14)
[2016-10-04] MEDS: Hydrocortisone 1% CREAM* 30 GM TUBE TOPICAL SCH ×3 (09:14→21:42)
[2016-10-04] MEDS: Acetaminophen TAB* 325 MG PO PRN ×2 (10:28→15:53)
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
--- NOTE | 2016-10-04 11:28 | PN ---
MHU: Group Therapy Note - Service Type Service Type: [id number] Group Psychotherapy - Cognitive Behavioral Group Therapy ( CBT):Patient attended CBT programming this morning and presented with flat affect that did not vary with discussion. Although responsive to direct prompts to respond to questions, patient did not engage in spontaneous conversation.
[2016-10-04] MEDS: clonazePAM TAB(*) 1 MG PO SCH (21:42)
[2016-10-04] MEDS: Terazosin CAP* 1 MG PO SCH (21:42)
[2016-10-04] MEDS: ARIPiprazole TAB* 20 MG PO SCH (21:42)
[2016-10-04] MEDS: Divalproex ER TAB(*) 500 MG PO SCH (21:42)
[2016-10-04] MEDS: Zolpidem TAB* 10 MG PO SCH (22:38)
[2016-10-05] MEDS: clonazePAM TAB(*) 1 MG PO SCH ×2 (09:28→21:14)
[2016-10-05] MEDS: Furosemide TAB* 40 MG PO SCH (09:28)
[2016-10-05] MEDS: Cholecalciferol TAB* 1000 UNITS PO SCH (09:28)
[2016-10-05] MEDS: Hydrocortisone 1% CREAM* 30 GM TUBE TOPICAL SCH ×3 (09:29→21:15)
--- NOTE | 2016-10-05 11:14 | PN ---
MHU: Group Therapy Note - Service Type Service Type: [id number] Group Psychotherapy - Cognitive Behavioral Group Therapy ( CBT):Patient presented in CBT programming as disorganized and disruptive in discussion and needed repeated redirection to attend to presented materials.
--- NOTE | 2016-10-05 11:38 | PN ---
Subjective - Subjective Service Type: [id number] Hosp care 15 min low complexity Subjective: The patient remains easily confused. As I enter his room he is not wearing any pants. Staff indicates he has been soiling himself and requires adult diapers for this reason. He admits that the aripiprazole is making him very hungry and he has been requesting extra portions of food. Patient's insight and judgment remain poor. Objective - Appearance Appearance: Obese Dysmorphic Features: No Hygiene: Normal Grooming: Disheveled - Behavior Psychomotor Activities: Abnormal-Increased Exhibits Abnormal Movement: Yes - Attitude and Relatedness Attitude and Relatedness: Cooperative Eye Contact: Fair - Speech Quality: Pressured Latencies: Short Quantity: Copious - Mood Patient's Decription of Mood: "Great" - Affect Observed Affect: Euphoric Affect Consistent with: Euphoria - Thought Process Patient's Thought Process: Tangential Thought Content: No Passive Wish, No Suicidal Planning, No Homicidal Ideation, No Paranoid Ideation - Sensorium Experiencing Hallucinations: No, Sensorium is Clear Type of Hallucinations: Visual: No, Auditory: No, Command: No - Level of Consciousness Level of Consciousness: Alert Orientation: Yes Intact, Yes Orientated to Time, Yes Orientated to Place, Yes Orientated to Person - Impulse Control Impulse Control: Poor - Insight and Judgement Insight and Judgement: Impaired - Group Participation Particating in Group Activities: Yes - Medication Management Medication Management Adherence: Yes Assessment - Assessment Merits Inpatient Hospitalization: For Immediate Safety, For Stabilization Inpatient DSM-IV Dx: Bipolar DO, Type I, MRE Manic, severe with psychotic features Clinical Impression: 60 y.o. , white, male [employer] with a history of chronic cannabis abuse and bipolarity who is admitted involuntarily due to bizarre and disruptive behavior in the community. The patient just came back to the [facility] from [facility], where he has been residing with his sister since 01/10, and has been non-adherent with medications and is now homeless. Plan - Plan Treatment Plan: Name: ANASTASIA LANDRY Birthdate: 1955 [id number] The patient remains euphoric with suspect decision making abilities. We have discontinued bupropion, added clonazepam 1mg PO BID and zolpidem 10mg PO qhs, and increased aripiprazole to 20mg PO Qday. We will discontinue aripiprazole as it doesn't appear to be helping his isabella. Start a trial of fluphenazine 10mg PO qhs. Patient needs placement. Continued Medication Management: Different Medication Medications: Current Medications Acetaminophen (Tylenol Tab*) 650 mg PO Q4H PRN PRN Reason: PAIN Last Admin: 10/04/16 15:53 Dose: 650 mg Cholecalciferol (Vitamin D Tab*) 1,000 units PO DAILY [facility] Last Admin: 10/05/16 09:28 Dose: 1,000 units Clonazepam (Klonopin Tab(*)) 1 mg PO BID SRINIVAS Last Admin: 10/05/16 09:28 Dose: 1 mg Divalproex Sodium (Depakote Er Tab(*)) 2,000 mg PO BEDTIME SRINIVAS Last Admin: 10/04/16 21:42 Dose: 2,000 mg Fluphenazine HCl (Prolixin Tab*) 10 mg PO BEDTIME SRINIVAS Furosemide (Lasix Tab*) 40 mg PO DAILY [facility] Last Admin: 10/05/16 09:28 Dose: 40 mg Hydrocortisone (Hytone Cream 1%*) 1 applic TOPICAL TID [facility] Last Admin: 10/05/16 09:29 Dose: Not Given Nicotine (Nicotine Inhaler*) 10 mg INH Q2H PRN PRN Reason: CRAVING Last Admin: 10/04/16 09:14 Dose: 10 mg Terazosin HCl (Hytrin Cap*) 2 mg PO BEDTIME SRINIVAS Last Admin: 10/04/16 21:42 Dose: 2 mg Zolpidem Tartrate (Ambien Tab*) 10 mg PO BEDTIME [facility] Last Admin: 10/04/16 22:38 Dose: 10 mg - Discharge Plan Discharge Plan: Inpatient Hospitalization
[2016-10-05] MEDS ORDERED: Mouth Piece, Nicotine* 1 EACH CARTRIDGE ONE (16:16)
[2016-10-05] MEDS: Nicotine Inhaler* 10 MG AMP INH PRN (16:17)
[2016-10-05] MEDS: Divalproex ER TAB(*) 500 MG PO SCH (21:13)
[2016-10-05] MEDS: fluPHENAZine HCL TAB* 5 MG PO SCH (21:13)
[2016-10-05] MEDS: Zolpidem TAB* 10 MG PO SCH (21:13)
[2016-10-05] MEDS: Terazosin CAP* 1 MG PO SCH (21:14)
[2016-10-06] MEDS: Cholecalciferol TAB* 1000 UNITS PO SCH (09:29)
[2016-10-06] MEDS: clonazePAM TAB(*) 1 MG PO SCH ×2 (09:30→21:21)
[2016-10-06] MEDS: Furosemide TAB* 40 MG PO SCH (09:30)
[2016-10-06] MEDS: Hydrocortisone 1% CREAM* 30 GM TUBE TOPICAL SCH ×3 (09:44→21:23)
--- NOTE | 2016-10-06 14:15 | PN ---
Subjective - Subjective Service Type: 44747 Hosp care 15 min low complexity Subjective: The patient was tearful today, stating that he wants to visit his girlfriend in the [facility]. He remains incontinent of stool and urine. He appears to be tolerating his medications well. Objective - Appearance Appearance: Obese Dysmorphic Features: No Hygiene: Normal Grooming: Disheveled - Behavior Psychomotor Activities: Abnormal-Increased Exhibits Abnormal Movement: Yes - Attitude and Relatedness Attitude and Relatedness: Cooperative Eye Contact: Fair - Speech Quality: Unpressured Latencies: Normal Quantity: Appropriate - Mood Patient's Decription of Mood: "Fine" - Affect Observed Affect: Tearful Affect Consistent with: Dysphoria - Thought Process Patient's Thought Process: Circumstantial Thought Content: No Passive Wish, No Suicidal Planning, No Homicidal Ideation, No Paranoid Ideation - Sensorium Experiencing Hallucinations: No, Sensorium is Clear Type of Hallucinations: Visual: No, Auditory: No, Command: No - Level of Consciousness Level of Consciousness: Alert Orientation: Yes Intact, Yes Orientated to Time, Yes Orientated to Place, Yes Orientated to Person - Impulse Control Impulse Control: Poor - Insight and Judgement Insight and Judgement: Impaired - Group Participation Particating in Group Activities: Yes - Medication Management Medication Management Adherence: Yes Assessment - Assessment Merits Inpatient Hospitalization: For Immediate Safety, For Stabilization Inpatient DSM-IV Dx: Bipolar DO, Type I, MRE Manic, severe with psychotic features Clinical Impression: 60 y.o. , white, male [employer] with a history of chronic cannabis abuse and bipolarity who is admitted involuntarily due to bizarre and disruptive behavior in the community. The patient just came back to the [facility] from [facility], where he has been residing with his sister since 01/10, and has been non-adherent with medications and is now homeless. Plan - Plan Treatment Plan: Name: ANASTASIA LANDRY Birthdate: 1955 [id number] The patient appears to be tolerating the switch from aripiprazole to fluphenazine well so far. We have discontinued bupropion, added clonazepam 1mg PO BID and zolpidem 10mg PO qhs. Patient needs placement. Continued Medication Management: Different Medication Medications: Current Medications Acetaminophen (Tylenol Tab*) 650 mg PO Q4H PRN PRN Reason: PAIN Last Admin: 10/04/16 15:53 Dose: 650 mg Cholecalciferol (Vitamin D Tab*) 1,000 units PO DAILY [facility] Last Admin: 10/06/16 09:29 Dose: 1,000 units Clonazepam (Klonopin Tab(*)) 1 mg PO BID [facility]AS Last Admin: 10/06/16 09:30 Dose: 1 mg Divalproex Sodium (Depakote Er Tab(*)) 2,000 mg PO BEDTIME [facility] Last Admin: 10/05/16 21:13 Dose: 2,000 mg Fluphenazine HCl (Prolixin Tab*) 10 mg PO BEDTIME [facility]IN[facility]AS Last Admin: 10/05/16 21:13 Dose: 10 mg Furosemide (Lasix Tab*) 40 mg PO DAILY [facility]INIVAS Last Admin: 10/06/16 09:30 Dose: 40 mg Hydrocortisone (Hytone Cream 1%*) 1 applic TOPICAL TID SRINIVAS Last Admin: 10/06/16 09:44 Dose: Not Given Nicotine (Nicotine Inhaler*) 10 mg INH Q2H PRN PRN Reason: CRAVING Last Admin: 10/05/16 16:17 Dose: 10 mg Terazosin HCl (Hytrin Cap*) 2 mg PO BEDTIME SR[facility]AS Last Admin: 10/05/16 21:14 Dose: 2 mg Zolpidem Tartrate (Ambien Tab*) 10 mg PO BEDTIME [facility]IVAS Last Admin: 10/05/16 21:13 Dose: 10 mg - Discharge Plan Discharge Plan: Inpatient Hospitalization
[2016-10-06] MEDS: fluPHENAZine HCL TAB* 5 MG PO SCH (21:20)
[2016-10-06] MEDS: Divalproex ER TAB(*) 500 MG PO SCH (21:21)
[2016-10-06] MEDS: Terazosin CAP* 1 MG PO SCH (21:21)
[2016-10-06] MEDS: Zolpidem TAB* 10 MG PO SCH (22:26)
[2016-10-07] MEDS: Furosemide TAB* 40 MG PO SCH (10:32)
[2016-10-07] MEDS: clonazePAM TAB(*) 1 MG PO SCH ×2 (10:32→21:19)
[2016-10-07] MEDS: Cholecalciferol TAB* 1000 UNITS PO SCH (10:32)
[2016-10-07] MEDS: Hydrocortisone 1% CREAM* 30 GM TUBE TOPICAL SCH ×3 (10:33→21:23)
[2016-10-07] MEDS: fluPHENAZine HCL TAB* 5 MG PO SCH (21:18)
[2016-10-07] MEDS: Terazosin CAP* 1 MG PO SCH (21:19)
[2016-10-07] MEDS: Divalproex ER TAB(*) 500 MG PO SCH (21:19)
[2016-10-07] MEDS: Acetaminophen TAB* 325 MG PO PRN (21:20)
[2016-10-07] MEDS: Nicotine Inhaler* 10 MG AMP INH PRN (21:40)
[2016-10-07] MEDS: Zolpidem TAB* 10 MG PO SCH (22:53)
[2016-10-08] MEDS: Furosemide TAB* 40 MG PO SCH (09:18)
[2016-10-08] MEDS: Cholecalciferol TAB* 1000 UNITS PO SCH (09:18)
[2016-10-08] MEDS: Hydrocortisone 1% CREAM* 30 GM TUBE TOPICAL SCH ×3 (09:18→20:43)
[2016-10-08] MEDS: clonazePAM TAB(*) 1 MG PO SCH ×2 (09:18→20:41)
[2016-10-08] MEDS: Divalproex ER TAB(*) 500 MG PO SCH (20:40)
[2016-10-08] MEDS: fluPHENAZine HCL TAB* 5 MG PO SCH (20:40)
[2016-10-08] MEDS: Terazosin CAP* 1 MG PO SCH (20:41)
[2016-10-08] MEDS: Zolpidem TAB* 10 MG PO SCH (22:20)
[2016-10-09] MEDS: Cholecalciferol TAB* 1000 UNITS PO SCH (09:19)
[2016-10-09] MEDS: clonazePAM TAB(*) 1 MG PO SCH ×2 (09:19→20:11)
[2016-10-09] MEDS: Furosemide TAB* 40 MG PO SCH (09:19)
[2016-10-09] MEDS: Hydrocortisone 1% CREAM* 30 GM TUBE TOPICAL SCH ×3 (09:20→20:13)
--- NOTE | 2016-10-09 10:22 | PN ---
Subjective - Subjective Service Type: [id number] Hosp care 15 min low complexity Subjective: The patient is calm and cooperative on approach. He is informed about the SPOE meeting tomorrow for this housing needs and expresses his understanding. Staff reports that he has been falling asleep on the milieu during day shift and the patient himself questions if he is over medicated. He denies SI or HI. Objective - Appearance Appearance: Obese Dysmorphic Features: No Hygiene: Normal Grooming: Fairly Well Kept - Behavior Psychomotor Activities: Abnormal-Increased Exhibits Abnormal Movement: Yes - Attitude and Relatedness Attitude and Relatedness: Cooperative Eye Contact: Fair - Speech Quality: Unpressured Latencies: Normal Quantity: Copious - Mood Patient's Decription of Mood: "Great" - Affect Observed Affect: Expansive Affect Consistent with: Euphoria - Thought Process Patient's Thought Process: Circumstantial Thought Content: No Passive Wish, No Suicidal Planning, No Homicidal Ideation, No Paranoid Ideation - Sensorium Experiencing Hallucinations: No, Sensorium is Clear Type of Hallucinations: Visual: No, Auditory: No, Command: No - Level of Consciousness Level of Consciousness: Alert Orientation: Yes Intact, Yes Orientated to Time, Yes Orientated to Place, Yes Orientated to Person - Impulse Control Impulse Control: Poor - Insight and Judgement Insight and Judgement: Impaired - Group Participation Particating in Group Activities: No - Medication Management Medication Management Adherence: Yes Assessment - Assessment Merits Inpatient Hospitalization: For Immediate Safety, For Stabilization Inpatient DSM-IV Dx: Bipolar DO, Type I, MRE Manic, severe with psychotic features Clinical Impression: 60 y.o. , white, male [employer] with a history of chronic cannabis abuse and bipolarity who is admitted involuntarily due to bizarre and disruptive behavior in the community. The patient just came back to the [facility] from [facility], where he has been residing with his sister since 01/10, and has been non-adherent with medications and is now homeless. Plan - Plan Treatment Plan: Name: ANASTASIA LANDRY Birthdate: 1955 [id number] The patient appears to be tolerating the switch from aripiprazole to fluphenazine well so far but is still symptomatic. We will increase fluphenazine to 15mg PO qhs and add Benadryl 50mg PO qhs to prevent EPS. Cancel zolpidem and reduce clonazepam to 1mg PO qhs to reduce sedation. Patient needs placement. Continued Medication Management: Different Medication Medications: Current Medications Acetaminophen (Tylenol Tab*) 650 mg PO Q4H PRN PRN Reason: PAIN Last Admin: 10/07/16 21:20 Dose: 650 mg Cholecalciferol (Vitamin D Tab*) 1,000 units PO DAILY [facility] Last Admin: 10/09/16 09:19 Dose: 1,000 units Clonazepam (Klonopin Tab(*)) 1 mg PO BID [facility] Last Admin: 10/09/16 09:19 Dose: 1 mg Divalproex Sodium (Depakote Er Tab(*)) 2,000 mg PO BEDTIME [facility] Last Admin: 10/08/16 20:40 Dose: 2,000 mg Fluphenazine HCl (Prolixin Tab*) 10 mg PO BEDTIME [facility] Last Admin: 10/08/16 20:40 Dose: 10 mg Furosemide (Lasix Tab*) 40 mg PO DAILY [facility] Last Admin: 10/09/16 09:19 Dose: 40 mg Hydrocortisone (Hytone Cream 1%*) 1 applic TOPICAL TID [facility] Last Admin: 10/09/16 09:20 Dose: Not Given Nicotine (Nicotine Inhaler*) 10 mg INH Q2H PRN PRN Reason: CRAVING Last Admin: 10/07/16 21:40 Dose: 10 mg Terazosin HCl (Hytrin Cap*) 2 mg PO BEDTIME [facility] Last Admin: 10/08/16 20:41 Dose: 2 mg Zolpidem Tartrate (Ambien Tab*) 10 mg PO BEDTIME [facility] Last Admin: 10/08/16 22:20 Dose: 10 mg - Discharge Plan Discharge Plan: Inpatient Hospitalization
[2016-10-09] MEDS: diPHENhydraMINE PO* 50 MG PO SCH (20:11)
[2016-10-09] MEDS: fluPHENAZine HCL TAB* 5 MG PO SCH (20:11)
[2016-10-09] MEDS: Divalproex ER TAB(*) 500 MG PO SCH (20:11)
[2016-10-09] MEDS: Naproxen TAB* 375 MG PO SCH (20:12)
[2016-10-09] MEDS: Terazosin CAP* 1 MG PO SCH (20:12)
[2016-10-10] MEDS: Cholecalciferol TAB* 1000 UNITS PO SCH (08:52)
[2016-10-10] MEDS: Naproxen TAB* 375 MG PO SCH ×2 (08:52→21:04)
[2016-10-10] MEDS: Hydrocortisone 1% CREAM* 30 GM TUBE TOPICAL SCH ×3 (08:52→22:10)
[2016-10-10] MEDS: Furosemide TAB* 40 MG PO SCH (08:52)
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
--- NOTE | 2016-10-10 11:51 | PN ---
MHU: Group Therapy Note - Service Type Service Type: 20335 Group Psychotherapy - Cognitive Behavioral Group Therapy ( CBT):Patient presented in CBT programming as disorganized and disruptive in discussion and needed repeated redirection to attend to presented materials. Jacinto continues to have difficulty with drowsiness at times in group, while at other times he is able to track group conversation and relate relevant personal experiences.
[2016-10-10] MEDS: Divalproex ER TAB(*) 500 MG PO SCH (21:04)
[2016-10-10] MEDS: clonazePAM TAB(*) 1 MG PO SCH (21:04)
[2016-10-10] MEDS: Terazosin CAP* 1 MG PO SCH (21:04)
[2016-10-10] MEDS: fluPHENAZine HCL TAB* 5 MG PO SCH (21:04)
[2016-10-10] MEDS: diPHENhydraMINE PO* 50 MG PO SCH (22:09)
[2016-10-11] MEDS: Cholecalciferol TAB* 1000 UNITS PO SCH (09:21)
[2016-10-11] MEDS: Naproxen TAB* 375 MG PO SCH ×2 (09:21→20:05)
[2016-10-11] MEDS: Furosemide TAB* 40 MG PO SCH (09:21)
[2016-10-11] MEDS: Hydrocortisone 1% CREAM* 30 GM TUBE TOPICAL SCH ×3 (09:22→20:07)
--- NOTE | 2016-10-11 11:30 | PN ---
Subjective - Subjective Service Type: 35828 Hosp care 15 min low complexity Subjective: Jacinto seems in better spirits today and is willing to go on a visit to the [facility] this Sunday (10/13). He is tolerating his medications well and appeared to sleep adequately last night. Objective - Appearance Appearance: Well Developed/Nourished Dysmorphic Features: No Hygiene: Normal Grooming: Fairly Well Kept - Behavior Psychomotor Activities: Abnormal-Increased Exhibits Abnormal Movement: Yes - Attitude and Relatedness Attitude and Relatedness: Cooperative - Speech Quality: Unpressured Latencies: Normal Quantity: Appropriate - Mood Patient's Decription of Mood: "Good" - Affect Observed Affect: Expansive Affect Consistent with: Euphoria - Thought Process Patient's Thought Process: Circumstantial Thought Content: No Passive Wish, No Suicidal Planning, No Homicidal Ideation, No Paranoid Ideation - Sensorium Experiencing Hallucinations: No, Sensorium is Clear Type of Hallucinations: Visual: No, Auditory: No, Command: No - Level of Consciousness Level of Consciousness: Alert Orientation: Yes Intact, Yes Orientated to Time, Yes Orientated to Place, Yes Orientated to Person - Impulse Control Impulse Control: Poor - Insight and Judgement Insight and Judgement: Impaired - Group Participation Particating in Group Activities: No - Medication Management Medication Management Adherence: Yes Assessment - Assessment Merits Inpatient Hospitalization: For Immediate Safety, For Stabilization Inpatient DSM-IV Dx: Bipolar DO, Type I, MRE Manic, severe with psychotic features Clinical Impression: 60 y.o. , white, male [employer] with a history of chronic cannabis abuse and bipolarity who is admitted involuntarily due to bizarre and disruptive behavior in the community. The patient just came back to the [facility] from [facility], where he has been residing with his sister since 01/10, and has been non-adherent with medications and is now homeless. Plan - Plan Treatment Plan: Name: JACINTO LANDRY Birthdate: 1955 [id number] The patient appears to be tolerating the switch from aripiprazole to fluphenazine 15mg PO qhs plus Benadryl 50mg PO qhs, although he remains somewhat symptomatic. It is not clear how functional his baseline is and he is requiring structured housing placement. Will visit [facility] on Sunday (10/13 ) for dispositional planning. Continued Medication Management: Different Medication Medications: Current Medications Acetaminophen (Tylenol Tab*) 650 mg PO Q4H PRN PRN Reason: PAIN Last Admin: 10/07/16 21:20 Dose: 650 mg Cholecalciferol (Vitamin D Tab*) 1,000 units PO DAILY [facility]INIV[facility] Last Admin: 10/11/16 09:21 Dose: 1,000 units Clonazepam (Klonopin Tab(*)) 1 mg PO BEDTIME [facility]IN[facility] Last Admin: 10/10/16 21:04 Dose: 1 mg Diphenhydramine HCl (Benadryl Po*) 50 mg PO BEDTIME [facility] Last Admin: 10/10/16 22:09 Dose: 50 mg Divalproex Sodium (Depakote Er Tab(*)) 2,000 mg PO BEDTIME [facility] Last Admin: 10/10/16 21:04 Dose: 2,000 mg Fluphenazine HCl (Prolixin Tab*) 15 mg PO BEDTIME [facility] Last Admin: 10/10/16 21:04 Dose: 15 mg Furosemide (Lasix Tab*) 40 mg PO DAILY [facility] Last Admin: 10/11/16 09:21 Dose: 40 mg Hydrocortisone (Hytone Cream 1%*) 1 applic TOPICAL TID [facility] Last Admin: 10/11/16 09:22 Dose: Not Given Naproxen (Naprosyn Tab*) 375 mg PO BID [facility] Last Admin: 10/11/16 09:21 Dose: 375 mg Nicotine (Nicotine Inhaler*) 10 mg INH Q2H PRN PRN Reason: CRAVING Last Admin: 10/07/16 21:40 Dose: 10 mg Terazosin HCl (Hytrin Cap*) 2 mg PO BEDTIME [facility] Last Admin: 10/10/16 21:04 Dose: 2 mg - Discharge Plan Discharge Plan: Inpatient Hospitalization
[2016-10-11] MEDS: clonazePAM TAB(*) 1 MG PO SCH (20:04)
[2016-10-11] MEDS: fluPHENAZine HCL TAB* 5 MG PO SCH (20:05)
[2016-10-11] MEDS: Divalproex ER TAB(*) 500 MG PO SCH (20:06)
[2016-10-11] MEDS: Terazosin CAP* 1 MG PO SCH (20:06)
[2016-10-11] MEDS: Nicotine Inhaler* 10 MG AMP INH PRN (20:56)
[2016-10-11] MEDS: diPHENhydraMINE PO* 50 MG PO SCH (22:08)
[2016-10-12] MEDS: Hydrocortisone 1% CREAM* 30 GM TUBE TOPICAL SCH ×3 (08:59→21:07)
[2016-10-12] MEDS: Cholecalciferol TAB* 1000 UNITS PO SCH (08:59)
[2016-10-12] MEDS: Furosemide TAB* 40 MG PO SCH (08:59)
[2016-10-12] MEDS: Naproxen TAB* 375 MG PO SCH ×2 (08:59→21:08)
--- NOTE | 2016-10-12 11:21 | PN ---
Subjective - Subjective Service Type: 36546 Hosp care 15 min low complexity Subjective: Jacinto is calm, cooperative and docile today. He is slated to go on a d/c planning visit to [facility] in [place], [place] tomorrow with staff for placement considerations. No new complaints. Objective - Appearance Appearance: Obese Dysmorphic Features: No Hygiene: Normal Grooming: Fairly Well Kept - Behavior Psychomotor Activities: Normal Exhibits Abnormal Movement: Yes - Attitude and Relatedness Attitude and Relatedness: Cooperative Eye Contact: Good - Speech Quality: Unpressured Latencies: Normal Quantity: Appropriate - Mood Patient's Decription of Mood: "Good" - Affect Observed Affect: Fair Affect Consistent with: Euthymia - Thought Process Patient's Thought Process: Circumstantial Thought Content: No Passive Wish, No Suicidal Planning, No Homicidal Ideation, No Paranoid Ideation - Sensorium Experiencing Hallucinations: No, Sensorium is Clear Type of Hallucinations: Visual: No, Auditory: No, Command: No - Level of Consciousness Level of Consciousness: Alert Orientation: Yes Intact, Yes Orientated to Time, Yes Orientated to Place, Yes Orientated to Person - Impulse Control Impulse Control: Tenuous - Insight and Judgement Insight and Judgement: Fair - Group Participation Particating in Group Activities: No - Medication Management Medication Management Adherence: Yes Assessment - Assessment Merits Inpatient Hospitalization: Consolidate Improvements, Pending Safe DC Plan Inpatient DSM-IV Dx: Bipolar DO, Type I, MRE Manic, severe with psychotic features Clinical Impression: 60 y.o. , white, male [employer] with a history of chronic cannabis abuse and bipolarity who is admitted involuntarily due to bizarre and disruptive behavior in the community. The patient just came back to the [facility] from [facility], where he has been residing with his sister since 01/10, and has been non-adherent with medications and is now homeless. Plan - Plan Treatment Plan: Name: JACINTO LANDRY Birthdate: 1955 [id number] The patient appears to be tolerating the switch from aripiprazole to fluphenazine 15mg PO qhs plus Benadryl 50mg PO qhs and he appears to be approaching baseline. Will visit [facility] on Sunday (10/13) for dispositional planning. Continued Medication Management: Different Medication Medications: Current Medications Acetaminophen (Tylenol Tab*) 650 mg PO Q4H PRN PRN Reason: PAIN Last Admin: 10/07/16 21:20 Dose: 650 mg Cholecalciferol (Vitamin D Tab*) 1,000 units PO DAILY SRINIV[facility] Last Admin: 10/12/16 08:59 Dose: 1,000 units Clonazepam (Klonopin Tab(*)) 1 mg PO BEDTIME [facility]IV[facility] Last Admin: 10/11/16 20:04 Dose: 1 mg Diphenhydramine HCl (Benadryl Po*) 50 mg PO BEDTIME [facility] Last Admin: 10/11/16 22:08 Dose: 50 mg Divalproex Sodium (Depakote Er Tab(*)) 2,000 mg PO BEDTIME [facility] Last Admin: 10/11/16 20:06 Dose: 2,000 mg Fluphenazine HCl (Prolixin Tab*) 15 mg PO BEDTIME [facility] Last Admin: 10/11/16 20:05 Dose: 15 mg Furosemide (Lasix Tab*) 40 mg PO DAILY [facility] Last Admin: 10/12/16 08:59 Dose: 40 mg Hydrocortisone (Hytone Cream 1%*) 1 applic TOPICAL TID SRINIV[facility] Last Admin: 10/12/16 08:59 Dose: Not Given Naproxen (Naprosyn Tab*) 375 mg PO BID [facility] Last Admin: 10/12/16 08:59 Dose: 375 mg Nicotine (Nicotine Inhaler*) 10 mg INH Q2H PRN PRN Reason: CRAVING Last Admin: 10/11/16 20:56 Dose: 10 mg Terazosin HCl (Hytrin Cap*) 2 mg PO BEDTIME [facility] Last Admin: 10/11/16 20:06 Dose: 2 mg - Discharge Plan Discharge Plan: Inpatient Hospitalization
[2016-10-12] MEDS ORDERED: PPD test dose* 5 TU/0.1 ML TEST (*USE PPD ORDER SET*) INTRADERM ONE (12:00)
[2016-10-12] MEDS: Divalproex ER TAB(*) 500 MG PO SCH (21:07)
[2016-10-12] MEDS: fluPHENAZine HCL TAB* 5 MG PO SCH (21:08)
[2016-10-12] MEDS: Terazosin CAP* 1 MG PO SCH (21:09)
[2016-10-12] MEDS: clonazePAM TAB(*) 1 MG PO SCH (21:09)
[2016-10-12] MEDS: diPHENhydraMINE PO* 50 MG PO SCH (22:24)
[2016-10-13] MEDS: Furosemide TAB* 40 MG PO SCH (09:21)
[2016-10-13] MEDS: Naproxen TAB* 375 MG PO SCH ×2 (09:22→20:31)
[2016-10-13] MEDS: Hydrocortisone 1% CREAM* 30 GM TUBE TOPICAL SCH ×3 (09:22→20:35)
[2016-10-13] MEDS: Cholecalciferol TAB* 1000 UNITS PO SCH (09:22)
--- NOTE | 2016-10-13 12:22 | PN ---
Subjective - Subjective Service Type: 60847 Hosp care 15 min low complexity Subjective: Jacinto had a therapeutic d/c planning visit to the [facility] in [place], [place] today, accompanied by staff. He loved the program and they were optimistic about him as well. I spoke with staff who indicate that a bed is available, however, the [place] administrators gave them a packet of information to fill out and indicated that the patient will need a tuberculosis test. A PPD was placed yesterday, but cannot be read until tomorrow. He is calm and cooperative and agreeable with d/c plans. He denies SI or HI. Objective - Appearance Appearance: Obese Dysmorphic Features: No Hygiene: Normal Grooming: Well Kept - Behavior Psychomotor Activities: Normal Exhibits Abnormal Movement: Yes - Attitude and Relatedness Attitude and Relatedness: Cooperative Eye Contact: Good - Speech Quality: Unpressured Latencies: Normal Quantity: Appropriate - Mood Patient's Decription of Mood: "Good" - Affect Observed Affect: Fair Affect Consistent with: Euthymia - Thought Process Patient's Thought Process: Coherent Thought Content: No Passive Wish, No Suicidal Planning, No Homicidal Ideation, No Paranoid Ideation - Sensorium Experiencing Hallucinations: No, Sensorium is Clear Type of Hallucinations: Visual: No, Auditory: No, Command: No - Level of Consciousness Level of Consciousness: Alert Orientation: Yes Intact, Yes Orientated to Time, Yes Orientated to Place, Yes Orientated to Person - Impulse Control Impulse Control: Tenuous - Insight and Judgement Insight and Judgement: Fair - Group Participation Particating in Group Activities: No - Medication Management Medication Management Adherence: Yes Assessment - Assessment Merits Inpatient Hospitalization: Consolidate Improvements, For Discharge Planning Inpatient DSM-IV Dx: Bipolar DO, Type I, MRE Manic, severe with psychotic features Clinical Impression: 60 y.o. , white, male [employer] with a history of chronic cannabis abuse and bipolarity who is admitted involuntarily due to bizarre and disruptive behavior in the community. The patient just came back to the [facility] from [facility], where he has been residing with his sister since 01/10, and has been non-adherent with medications and is now homeless. Plan - Plan Treatment Plan: Name: JACINTO LANDRY Birthdate: 1955 [id number] The patient has been accepted at [facility] and can go there as early as next Sunday, October 16. He appears to be tolerating the switch from aripiprazole to fluphenazine 15mg PO qhs plus Benadryl 50mg PO qhs and is more or less at his psychiatric baseline. D/C early next week once placement arrangements are complete. Continued Medication Management: Different Medication Medications: Current Medications Acetaminophen (Tylenol Tab*) 650 mg PO Q4H PRN PRN Reason: PAIN Last Admin: 10/07/16 21:20 Dose: 650 mg Cholecalciferol (Vitamin D Tab*) 1,000 units PO DAILY [facility] Last Admin: 10/13/16 09:22 Dose: 1,000 units Clonazepam (Klonopin Tab(*)) 1 mg PO BEDTIME [facility] Last Admin: 10/12/16 21:09 Dose: 1 mg Diphenhydramine HCl (Benadryl Po*) 50 mg PO BEDTIME [facility] Last Admin: 10/12/16 22:24 Dose: 50 mg Divalproex Sodium (Depakote Er Tab(*)) 2,000 mg PO BEDTIME [facility] Last Admin: 10/12/16 21:07 Dose: 2,000 mg Fluphenazine HCl (Prolixin Tab*) 15 mg PO BEDTIME [facility] Last Admin: 10/12/16 21:08 Dose: 15 mg Furosemide (Lasix Tab*) 40 mg PO DAILY [facility] Last Admin: 10/13/16 09:21 Dose: 40 mg Hydrocortisone (Hytone Cream 1%*) 1 applic TOPICAL TID [facility] Last Admin: 10/13/16 09:22 Dose: Not Given Naproxen (Naprosyn Tab*) 375 mg PO BID [facility] Last Admin: 10/13/16 09:22 Dose: 375 mg Nicotine (Nicotine Inhaler*) 10 mg INH Q2H PRN PRN Reason: CRAVING Last Admin: 10/11/16 20:56 Dose: 10 mg Pharmacy Profile Note (Ppd Reading Note*) 1 note .SEE ORDER .ONCE [facility]IV[facility] Stop: 10/15/16 12:59 Terazosin HCl (Hytrin Cap*) 2 mg PO BEDTIME [facility] Last Admin: 10/12/16 21:09 Dose: 2 mg - Discharge Plan Discharge Plan: Outpatient Follow Up Outpatient Program: [facility]
[2016-10-13] MEDS: clonazePAM TAB(*) 1 MG PO SCH (20:31)
[2016-10-13] MEDS: Divalproex ER TAB(*) 500 MG PO SCH (20:31)
[2016-10-13] MEDS: fluPHENAZine HCL TAB* 5 MG PO SCH (20:31)
[2016-10-13] MEDS: Terazosin CAP* 1 MG PO SCH (20:32)
[2016-10-13] MEDS: diPHENhydraMINE PO* 50 MG PO SCH (20:32)
--- NOTE | 2016-10-13 23:03 | CONS ---
CONSULTATION REPORT: DATE OF CONSULT: 10/09/16 DATE OF DICTATION: 10/13/16 CHIEF COMPLAINT: A 60-year-old male with long thick painful nails. HISTORY OF PRESENT ILLNESS: Jacinto is being seen at bedside at [facility]. He has long thick nails that are digging in his side of his toes. He requested to trim to comfortable level. PHYSICAL EXAMINATION: Skin Exam: There is lack of hair growth distribution to the lower extremities. The skin temperature to lower extremities is cool proximal to distal. The skin thin, shinny, and dystrophic, changes consistent with peripheral vascular disease. There is some swelling noted. Lower extremities nonpitting at this time. Vascular Exam: Capillary refill time is 1 second x10. Dorsalis pedis pulses is 1/4 and posterior tibial pulses 0/4 right and left. Nail Exam: Toenail shows TA, T1, T2, T3, T4, T5, T6, T7, T8, T9 with lysis subungual noted, dystrophic changes, thick, and painful, discolored yellow, tender with applied pressure. Appearance is consistent with a mycotic toenail infection. DIAGNOSIS: Onychomycosis. PLAN: I discussed treatment options with the patient regarding onychomycosis. He declined oral Lamisil therapy at this time. He opted for trimming of the toenails to get his feet comfortable and able to wear shoes comfortably. PROCEDURE PERFORMED: Debridement toenails TA, T1, T2, T3, T4, T5, T6, T7, T8, T9 in thickness and length burred down to smooth level. The patient tolerated the procedure well and please re-consult me if needed. [id number]/[facility] #: [id number] KHALIDA
[2016-10-14] MEDS: Cholecalciferol TAB* 1000 UNITS PO SCH (08:55)
[2016-10-14] MEDS: Furosemide TAB* 40 MG PO SCH (08:55)
[2016-10-14] MEDS: Hydrocortisone 1% CREAM* 30 GM TUBE TOPICAL SCH ×4 (08:55→20:17)
[2016-10-14] MEDS: Naproxen TAB* 375 MG PO SCH ×2 (08:55→20:18)
[2016-10-14] MEDS ORDERED: PPD Reading NOTE* (*USE PPD ORDER SET*) SCH (12:00)
[2016-10-14] MEDS ORDERED: PPD Reading 48-72 HRS NOTE SCH (13:00)
[2016-10-14] MEDS: Terazosin CAP* 1 MG PO SCH (20:18)
[2016-10-14] MEDS: Divalproex ER TAB(*) 500 MG PO SCH (20:19)
[2016-10-14] MEDS: clonazePAM TAB(*) 1 MG PO SCH (20:19)
[2016-10-14] MEDS: fluPHENAZine HCL TAB* 5 MG PO SCH (20:19)
[2016-10-14] MEDS: diPHENhydraMINE PO* 50 MG PO SCH (23:14)
[2016-10-15] MEDS: Naproxen TAB* 375 MG PO SCH ×2 (09:35→21:10)
[2016-10-15] MEDS: Furosemide TAB* 40 MG PO SCH (09:35)
[2016-10-15] MEDS: Cholecalciferol TAB* 1000 UNITS PO SCH (09:35)
[2016-10-15] MEDS: Hydrocortisone 1% CREAM* 30 GM TUBE TOPICAL SCH ×3 (09:37→21:12)
[2016-10-15] MEDS: Divalproex ER TAB(*) 500 MG PO SCH (21:09)
[2016-10-15] MEDS: fluPHENAZine HCL TAB* 5 MG PO SCH (21:10)
[2016-10-15] MEDS: Terazosin CAP* 1 MG PO SCH (21:11)
[2016-10-15] MEDS: clonazePAM TAB(*) 1 MG PO SCH (21:11)
[2016-10-15] MEDS: diPHENhydraMINE PO* 50 MG PO SCH (23:27)
[2016-10-16] MEDS: Cholecalciferol TAB* 1000 UNITS PO SCH (08:59)
[2016-10-16] MEDS: Naproxen TAB* 375 MG PO SCH ×2 (08:59→20:45)
[2016-10-16] MEDS: Hydrocortisone 1% CREAM* 30 GM TUBE TOPICAL SCH ×3 (09:00→23:10)
[2016-10-16] MEDS: Furosemide TAB* 40 MG PO SCH (09:00)
--- NOTE | 2016-10-16 09:58 | PN ---
Subjective - Subjective Service Type: [id number] Hosp care 15 min low complexity Subjective: Jacinto had no complaints. He is in agreement with discharge plan and reports a good experience here. We reviewed his course, medication plan and status. We discussed his tremor which he says is diagnosed as essential tremor. Objective - Appearance Appearance: Well Developed/Nourished Hygiene: Normal Grooming: Fairly Well Kept - Behavior Psychomotor Activities: Abnormal-Increased - has a tremor Exhibits Abnormal Movement: Yes - Attitude and Relatedness Attitude and Relatedness: Cooperative Eye Contact: Good - Speech Quality: Unpressured Latencies: Normal Quantity: Appropriate - Mood Patient's Decription of Mood: "Okay" - Affect Observed Affect: Non-labile Affect Consistent with: Euthymia - Thought Process Patient's Thought Process: Coherent Thought Content: No Passive Wish, No Suicidal Planning, No Homicidal Ideation, No Paranoid Ideation - Sensorium Experiencing Hallucinations: No, Sensorium is Clear - Level of Consciousness Level of Consciousness: Alert - Impulse Control Impulse Control: Intact - Insight and Judgement Insight and Judgement: Fair Assessment - Assessment Merits Inpatient Hospitalization: Consolidate Improvements, For Discharge Planning, Pending Safe DC Plan Inpatient DSM-IV Dx: Bipolar DO, Type I, MRE Manic, severe with psychotic features Clinical Impression: 60 y/o male with a history of Bipolar disorder and chronic cannabis use disorder. He was admitted on emergency basis due to bizarre and disruptive behavior in the community. The context was displacement, homelessness, non- adherence with medication. Stabilized here. Clinically is improved, with reduced mood symptoms, improved organization, correction of acute impairment, and intact behavioral control. Medicationg mgt. is with fluphenazine, Depakote, clonazepam. D/c contemplates intake at [facility], expect it will be this week. Plan - Plan Treatment Plan: Name: JACINTO LANDRY Birthdate: 1955 [id number] Continued Medication Management: Different Medication Medications: Current Medications Acetaminophen (Tylenol Tab*) 650 mg PO Q4H PRN PRN Reason: PAIN Last Admin: 10/07/16 21:20 Dose: 650 mg Cholecalciferol (Vitamin D Tab*) 1,000 units PO DAILY [facility] Last Admin: 10/16/16 08:59 Dose: 1,000 units Clonazepam (Klonopin Tab(*)) 1 mg PO BEDTIME [facility] Last Admin: 10/15/16 21:11 Dose: 1 mg Diphenhydramine HCl (Benadryl Po*) 50 mg PO BEDTIME [facility] Last Admin: 10/15/16 23:27 Dose: 50 mg Divalproex Sodium (Depakote Er Tab(*)) 2,000 mg PO BEDTIME [facility] Last Admin: 10/15/16 21:09 Dose: 2,000 mg Fluphenazine HCl (Prolixin Tab*) 15 mg PO BEDTIME [facility] Last Admin: 10/15/16 21:10 Dose: 15 mg Furosemide (Lasix Tab*) 40 mg PO DAILY [facility] Last Admin: 10/16/16 09:00 Dose: 40 mg Hydrocortisone (Hytone Cream 1%*) 1 applic TOPICAL TID [facility] Last Admin: 10/16/16 09:00 Dose: 1 applic Naproxen (Naprosyn Tab*) 375 mg PO BID [facility] Last Admin: 10/16/16 08:59 Dose: 375 mg Nicotine (Nicotine Inhaler*) 10 mg INH Q2H PRN PRN Reason: CRAVING Last Admin: 10/11/16 20:56 Dose: 10 mg Terazosin HCl (Hytrin Cap*) 2 mg PO BEDTIME [facility] Last Admin: 10/15/16 21:11 Dose: 2 mg - Discharge Plan Discharge Plan: Outpatient Follow Up
[2016-10-16] MEDS: fluPHENAZine HCL TAB* 5 MG PO SCH (20:44)
[2016-10-16] MEDS: Terazosin CAP* 1 MG PO SCH (20:45)
[2016-10-16] MEDS: Divalproex ER TAB(*) 500 MG PO SCH (20:46)
[2016-10-16] MEDS: clonazePAM TAB(*) 1 MG PO SCH (20:47)
[2016-10-16] MEDS: diPHENhydraMINE PO* 50 MG PO SCH (21:26)
[2016-10-17 07:45] VITALS: BP 106/66
[2016-10-17] MEDS: Furosemide TAB* 40 MG PO SCH (08:48)
[2016-10-17] MEDS: Hydrocortisone 1% CREAM* 30 GM TUBE TOPICAL SCH (08:48)
[2016-10-17] MEDS: Cholecalciferol TAB* 1000 UNITS PO SCH (08:48)
[2016-10-17] MEDS: Naproxen TAB* 375 MG PO SCH (08:48)
--- NOTE | 2016-10-17 13:11 | DS ---
Subjective - Subjective Discharge Date: 10/17/16 Subjective: Jacinto was in agreement with discharge and in good spirits this morning (I was not here for his release but it was uneventful). Because I provided a telephone order for discharge, his medication list on discharge instructions is not correct. It has been reconciled to the medications on this discharge summary, correct medications have been sent to pharmacy, and updated instructions, with this report, are being sent to Jacinto's residence. Treatment Course & Assessment Clinical Course & Impression: 60 y/o male with a history of Bipolar disorder and chronic cannabis use disorder. He was admitted on emergency basis due to bizarre and disruptive behavior in the community. The context was displacement, homelessness, non- adherence with medication. 10/17/16 Clear for release. Jacinto stabilized here. Clinically he improved, with reduced mood symptoms, improved organization, correction of acute impairment, and intact behavioral control. He was safe on all checks and cooperative with routines. Medication management is with fluphenazine, Depakote, clonazepam. We discontinued Wellbutrin. Discharge planning contended with pt's homelessness, he was accepted for intake at [facility]. Risk concern centered mainly on risk of unintentional harm due to patient's dysregulation and impairment. Based on his improvements, this risk is acutely much lower and acceptable for outpatient status. Suicide risk is chronically elevated in patients of Jacinto's profile - his current acute risk is assessed as low based on his low symptom burden, and benign recent ideation and behavior. Clear for Discharge: Adequate Clinical Respons, Acceptable Safety Profile, Low Utility of Inpt Care Inpatient DSM-IV Dx: Bipolar DO, Type I, MRE Manic, severe with psychotic features Discharge Planning - Discharge Planning Discharge Plan: Outpatient Follow Up Recommendations for Continuing Care: Medication Management, Psychotherapy, Routine Metabolic Monitoring, Therapeutic Drug Levels, Primary Care Followup Medications: Cholecalciferol (Vitamin D Tab*) 1,000 units PO DAILY [facility]INIV[facility] Last Admin: 10/16/16 08:59 Dose: 1,000 units Clonazepam (Klonopin Tab(*)) 1 mg PO BEDTIME [facility] Last Admin: 10/15/16 21:11 Dose: 1 mg Diphenhydramine HCl (Benadryl Po*) 50 mg PO BEDTIME [facility]NIIVAS Last Admin: 10/15/16 23:27 Dose: 50 mg Divalproex Sodium (Depakote Er Tab(*)) 2,000 mg PO BEDTIME [facility] Last Admin: 10/15/16 21:09 Dose: 2,000 mg Fluphenazine HCl (Prolixin Tab*) 15 mg PO BEDTIME [facility] Last Admin: 10/15/16 21:10 Dose: 15 mg Furosemide (Lasix Tab*) 40 mg PO DAILY [facility] Last Admin: 10/16/16 09:00 Dose: 40 mg Naproxen (Naprosyn Tab*) 375 mg PO BID [facility] Last Admin: 10/16/16 08:59 Dose: 375 mg Terazosin HCl (Hytrin Cap*) 2 mg PO BEDTIME [facility] Last Admin: 10/15/16 21:11 Dose: 2 mg Discharge Planning: Prescriptions provided for discharge [x] Yes [] No Follow up care details as per social work arrangements. Patient response to discharge plan: [] eager for discharge [x] agreeable with discharge plan [] ambivalent about discharge [] disagrees with discharge today
== END 2016-10-17 11:05 | DRG 885 ==
LOC: ED 11:46 → BSU 09-20 20:01
PROVIDERS: ADMIT Internal Medicine; ATTEND Psychiatry & Neurology Psychiatry
PROC: 5A09457 Assistance with Respiratory Ventilation, 24-96 Consecutive Hours, Continuous Positive Airway Pressure (ICD-10-PCS; principal; 2016-09-28)
DX: F31.2 Bipolar disorder, current episode manic severe with psychotic features (principal); I10 Essential (primary) hypertension; Z68.41 Body mass index [BMI] 40.0-44.9, adult; E55.9 Vitamin D deficiency, unspecified; F12.10 Cannabis abuse, uncomplicated; B35.1 Tinea unguium; E66.01 Morbid (severe) obesity due to excess calories; G25.0 Essential tremor; Z79.899 Other long term (current) drug therapy
CPT/HCPCS: 36415; 80053; 80061; 80164; 80307; 80320; 80329; 81003; 83036; 84443; 85025; 90853; 94660; 94760; 99222; 99231; 99238; A9270-GY; G0480

== ENCOUNTER 2017-01-14 10:43 | Inpatient (IN) | payer MEDICARE ==
[2017-01-14] MEDS ORDERED: NS 0.9% 1000 ML* 1,000 ML IV ONE (11:53)
--- NOTE | 2017-01-14 12:15 | RAD ---
INDICATION: Change in mental status COMPARISON: March 30, 2011 TECHNIQUE: An AP portable view obtained at 1200 hours is submitted. FINDINGS: Bones/Soft Tissues: There are no acute bony findings. Cardiomediastinal: The cardiomediastinal silhouette is normal. Lungs: There is mild left basilar airspace disease with nodularity. Suggest PA and lateral imaging follow-up. Pleura: There are no pleural effusions. Other: None IMPRESSION: MILD LEFT BASILAR ABNORMALITIES. SUGGEST FOLLOW-UP
--- NOTE | 2017-01-14 12:37 | RAD ---
INDICATION: Change in mental status COMPARISON: CT brain July 20, 2012 TECHNIQUE: Noncontrast axial source images were acquired from the skull base to the vertex. FINDINGS: Ventricles/sulci: There is moderate cortical atrophy with compensatory dilatation of the CSF spaces. Brain parenchyma: There is mild periventricular and subcortical white matter change compatible with chronic ischemia. Intracranial hemorrhage:None. Extra-axial spaces: There are no abnormal extra axial fluid collections or evidence of extra-axial mass. Calvarium: There is no calvarial fracture or other calvarial abnormality. Scalp: There is no evidence of scalp or extracalvarial soft tissue abnormality. Paranasal sinuses/mastoid: The paranasal sinuses and mastoid air cells are clear. Other: None. IMPRESSION: CORTICAL ATROPHY WITH CHRONIC MICROVASCULAR ISCHEMIC CHANGES. NO ACUTE FINDINGS.
[2017-01-14 13:13] LABS: Troponin I 0.01 ng/mL (<0.04)
[2017-01-14 13:14] LABS: Albumin 4.1 g/dL (3.2-5.2); BUN/Creatinine Ratio 39.1 (8-20); Calcium 9.8 mg/dL (8.6-10.3); EGFR African American 114.7 (>60); EGFR Non-African American 89.2 (>60); Globulin 2.9 g/dL (2-4); Potassium 3.7 mmol/L (3.5-5.0); Total Bilirubin 0.4 mg/dL (0.2-1.0)
[2017-01-14 13:26] LABS: Urine Bilirubin Negative (Negative); Urine Glucose Negative (Negative); Urine Nitrite Negative (Negative)
[2017-01-14 13:38] LABS: Benzodiazepine Urine Screen None Detected (None Detect)
[2017-01-14 13:39] LABS: Hematocrit 45 % (42-52); Hemoglobin 15.1 g/dl (14.0-18.0); Mean Corpuscular HGB Conc 34 g/dl (31-36); Mean Corpuscular Hemoglobin 31 pg (27-31); Mean Corpuscular Volume 92 fL (80-94); Mean Platelet Volume 9 um3 (7.4-10.4); Red Blood Count 4.86 10^6/ul (4.0-5.4); Red Cell Distribution Width 14 % (10.5-15); White Blood Count 8.3 10^3/ul (3.5-10.8)
[2017-01-14 13:44] LABS: Add Diff/Slide Review? Slide Review Added; Comments Flag Yes
[2017-01-14 14:15] LABS: Acetaminophen < 15 mcg/mL; Alcohol < 10 mg/dL (<10); Salicylate < 2.50 mg/dL (<30)
[2017-01-14 14:25] LABS: TSH (Thyroid Stimulating Horm) 1.66 mcIU/mL (0.34-5.60)
[2017-01-14] MEDS ORDERED: Magnesium Hydroxide LIQ* 30 ML UDC PO PRN (17:17)
[2017-01-14] MEDS ORDERED: GuaiFENesin DM* 5 ML UDC PO PRN (17:17)
[2017-01-14] MEDS ORDERED: Al Hydrox/Mg Hydrox/Simet LIQ* 30 ML UDC PO PRN (17:17)
[2017-01-14] MEDS: Terazosin CAP* 1 MG PO SCH (19:56)
[2017-01-14] MEDS: Divalproex ER TAB(*) 500 MG PO SCH (19:56)
[2017-01-14] MEDS: Heparin VIAL(*) 5000 UNITS/ML VIAL (FIVE THOUSAND) SUBCUT SCH (21:04)
--- NOTE | 2017-01-14 21:14 | HP ---
CC: GELA Carmona, [facility] * HISTORY AND PHYSICAL: DATE OF ADMISSION: 01/14/17 PRIMARY CARE PROVIDER: GELA Carmona [facility] ATTENDING PHYSICIAN: Flori Tang MD* (dictated by Neha Soto NP). CHIEF COMPLAINT: Weakness and tremor. HISTORY OF PRESENT ILLNESS: Mr. Gill is a 61-year-old male with past medical history significant for bipolar disorder type 1, hypertension, obesity, and obstructive sleep apnea who uses a CPAP, who presented to the emergency room after falling at the [facility] [place] where he resides. The patient fell on his buttocks overnight, stating that his legs gave out. He also reports a bilateral upper extremity tremor that he noticed started on November 25. The patient reports that he has been told that he does not have a tremor when he is sleeping. He feels that if he concentrates very hard he can stop the tremor from happening. When his hands are at rest, the tremor is increased. When he moves or reaches for an object, the tremor decreases and sometimes will stop. Overall, the patient states he has been feeling well. He denies any fever, chills, chest pain, shortness of breath, nausea, vomiting, diarrhea. He does report that over the last year, he has noticed urinary incontinence. The patient presented to the emergency room for evaluation of his weakness. While in the emergency room, the patient received normal saline. He had labs that were fairly unremarkable. He had a negative urinalysis. EKG showing a sinus rhythm. Chest x-ray showing mild right basilar abnormality with suggested followup PA and lateral chest x-ray. He also had a brain CT showing cortical atrophy with chronic microvascular ischemic changes. No acute findings. The patient had a urine tox that was positive for marijuana. Due to the patient's complaint of weakness, the hospitalists were asked to evaluate him for admission. PAST MEDICAL HISTORY: 1. Bipolar type 1. 2. Hypertension. 3. Obesity. 4. Obstructive sleep apnea. 5. Low vitamin D. PAST SURGICAL HISTORY: Status post abdominal surgery in 1976. HOME MEDICATIONS: Include: 1. Kaopectate 30 mL oral every 4 hours as needed for diarrhea. 2. Robitussin 5 mL oral 4 times daily as needed for cough. 3. Maalox Plus 30 mL oral every 4 hours as needed for indigestion. 4. Milk of magnesia 30 mL oral every 4 hours as needed for constipation. 5. Acetaminophen 500 mg oral every 4 hours as needed for pain. 6. Multivitamin 1 tablet oral daily. 7. Magnesium oxide 400 mg oral daily. 8. Terazosin 2 mg oral daily at bedtime. 9. Naproxen 375 mg oral twice daily. 10. Furosemide 40 mg oral daily. 11. Depakote ER 2000 mg oral daily at bedtime. 12. Klonopin, per [facility] records, this was stopped on 11/15/16. 13. Prolixin, according to [facility] records, this was stopped on 11/15/16. 14. Benadryl, this appears to have been stopped on 11/15/16 according to [facility] records. 15. Vitamin D3 1000 units oral daily. ALLERGIES: No known drug allergies. FAMILY HISTORY: The patient denies any family history of coronary artery disease or cancer. The patient has 2 maternal uncles with history diabetes mellitus. SOCIAL HISTORY: The patient is a current smoker smoking 1/2 to 3/4 pack a day. He reports a 24-year smoking history and reports that he smokes more now than he has in the past. He occasionally drinks alcohol. He uses marijuana. The patient is disabled and lives at the [facility]. The patient's sister, Martha Viramontes and brother Ashkan Gill, will be his surrogate decision makers in the event he is unable to make decisions for himself. REVIEW OF SYSTEMS: I performed a 14-point review of systems. All the pertinent positives and negatives are mentioned in the history of present illness. The remaining review of systems is negative. PHYSICAL EXAMINATION GENERAL APPEARANCE: The patient is alert, pleasant, appears to be in no acute distress. VITAL SIGNS: Temperature 98.6, heart rate 62, respiratory rate 20, O2 sat 96% on room air, blood pressure 139/81. HEENT: Normocephalic, atraumatic. Pupils are equal and reactive to light. Extraocular movements were intact. RESPIRATORY: There is no accessory muscle use and the lungs are clear to auscultation bilateral. CARDIAC: Regular rate and rhythm. S1 and S2 are present. There are no murmurs , rubs, or gallops heard. ABDOMEN: Soft, nontender, nondistended. There are bowel sounds present x4. EXTREMITIES: There is trace bilateral lower extremity edema. DP and PT pulses are 2+ and symmetric. MUSCULOSKELETAL: There is no clubbing or cyanosis noted. The patient exhibits good strength in all extremities. NEUROLOGICAL: The patient is alert and oriented x4. Cranial nerves II through XII are grossly intact. The patient is noted to have a resting tremor that improves with intentional movement such as reaching for an object. PSYCHOLOGICAL: The patient is calm and cooperative. SKIN: There are no rashes or abnormalities seen. DIAGNOSTIC STUDIES/LAB DATA: Sodium 140, potassium 2.7, chloride 103, CO2 30, BUN 34, creatinine 0.87, glucose 77. White blood cell count 8.3, hemoglobin 15.1, hematocrit 45 and platelet count 184,000. CK 521. Troponin 0.01, TSH 1.66. Urine tox positive for cannabis. Urinalysis negative. EKG shows a normal sinus rhythm and a rate of 65. There were no acute signs of ischemia. This EKG is similar to previous EKG from 07/19/12. 1. Chest x-ray from today, radiologist's impression: mild left basilar abnormality, suggest followup. 2. Brain CT from today, radiologist's impression: Cortical atrophy with chronic microvascular ischemic changes, no acute findings. IMPRESSION: Mr. Gill is a 61-year-old male with past medical history significant for bipolar disorder, hypertension, obesity, and obstructive sleep apnea who presented to the emergency room with complaints of weakness and a resting tremor. He will be admitted as an observation for weakness and tremor. ASSESSMENT/PLAN: 1. Weakness. Unclear etiology. I suspect this could represent some deconditioning as the patient has recently gone from living at home to the [facility] and I suspect he is not as active as he used to be. We will get Physical Therapy to evaluate him. 2. Tremor. The patient is noted to have a resting tremor that improves with intentional movement and is gone when he is sleeping. According to the patient , his psychiatrist felt that it could be the medications he is on and he has had his medications adjusted. The patient states he recently had a neurology appointment this coming , but that has been cancelled. I have asked Dr. Rasmussen with Neurology to consult on the patient and he will see the patient in the morning. 3. Mild left basilar abnormality. We will plan to get a follow up PA and lateral chest xray when the patient is able to stand up so that we can get better imaging. 4. Bipolar. The patient will be continued on his home Depakote. It appears that his clonazepam, Prolixin, and Benadryl were all stopped on 11/15/16. I will continue to hold them. I am waiting to hear back from [facility] to confirm that this is the case. If we do not hear back from [facility], we may want to contact the patient's psychiatrist or primary care provider to make sure that the medication list we have is accurate. 5. Obstructive sleep apnea. The patient will be continued on CPAP at his home settings. 6. Hypertension. The patient will be continued on his home terazosin and Lasix. He had been normotensive while in the emergency room. 7. Obesity. The patient has a BMI of 38. 8. Fluids, electrolytes, and nutrition. The patient is on a regular diet. 9. Code status. Do not resuscitate and do not intubate. 10. DVT prophylaxis. The patient is at high risk and will be placed on subcu heparin. DISPOSITION: Observation. TIME SPENT: Time for this admission was approximately 60 minutes with greater than half of that was spent with the patient discussing medications, past medical history, and the events leading up to his arrival today and performing a physical examination. The case has been reviewed with the attending, Dr. Tang, who agrees with the plan of care. Reviewed by KEITH SANTANA 01/17/17 0950 [id number]/[facility] #: [id number] MTDApolinar
--- NOTE | 2017-01-14 21:40 | ED ---
Wes Rose Alfonso, scribed for Devon Bass MD on 01/14/17 at 1149 . Complex/Multi-Sys Presentation - HPI Summary HPI Summary: This patient is a 61 year old M BIBA to [facility] with a chief complaint of generalized weakness since 1020 this morning. He states he was OK yesterday and that today I could not walk and I collapsed on the floor because he felt weak. The patient rates the pain 0/10 in severity. Symptoms aggravated and alleviated by nothing. Patient reports constipation. Patient denies fever, urinary symptoms, loss of appetite, and calf pain. He denies recent changes in his medications. PMHx of~COPD and substance use. - History Of Current Complaint Chief Complaint: EDWeakness Time Seen by Provider: 01/14/17 11:19 Hx Obtained From: Patient Onset/Duration: Sudden Onset, Lasting Minutes - 1020 this morning, Still Present Timing: Constant Severity Currently: Moderate Severity Initially: Moderate Aggravating Factor(s): Nothing Alleviating Factor(s): Nothing Associated Signs And Symptoms: Positive: Other - Patient denies fever, urinary symptoms, loss of appetite, and calf pain. 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 Infectious Disease History: No Infectious Disease History: Denies: Hx Hepatitis, Hx Human Immunodeficiency Virus (HIV), History Other Infectious Disease, Traveled Outside the [place] in Last 30 Days - Family History Known Family History: Negative: Cardiac Disease, Hypertension, Diabetes - Social History Alcohol Use: None Substance Use Type: Reports: Marijuana, Prescribed Smoking Status (MU): Heavy Every Day Tobacco Smoker Review of Systems Negative: Fever Positive: Other - Positive constipation; negative loss of appetite. Positive: no symptoms reported Positive: Other - Negative calf pain. Positive: Weakness - Generalized All Other Systems Reviewed And Are Negative: Yes Physical Exam Triage Information Reviewed: Yes Vital Signs On Initial Exam: Initial Vitals BP 129/59 01/14/17 11:04 Vital Signs Reviewed: Yes Appearance: Positive: Well-Appearing, No Pain Distress, Obese Skin: Positive: Warm, Skin Color Reflects Adequate Perfusion, Dry Head/Face: Positive: Normal Head/Face Inspection Eyes: Positive: Normal ENT: Positive: Normal ENT inspection Neck: Positive: Supple, Nontender Respiratory/Lung Sounds: Positive: Clear to Auscultation, Breath Sounds Present Cardiovascular: Positive: RRR Abdomen Description: Positive: Nontender, Soft Bowel Sounds: Positive: Present Musculoskeletal: Positive: Other - Chronic venous stasis changes. Bilateral pedal edema. Neurological: Positive: Sensory/Motor Intact, CN Intact II-III - Kellee Coma Scale Coma Scale Total: 14 Diagnostics - Vital Signs Vital Signs Temp Pulse Resp BP Pulse Ox 01/14/17 11:09 98.6 F 56 20 129/59 96 01/14/17 11:04 129/59 - Laboratory Lab Results: Lab Results 01/14/17 01/14/17 01/14/17 Range/Units 12:45 12:45 12:45 WBC (3.5-10.8) 10^3/ul RBC (4.0-5.4) 10^6/ul Hgb (14.0-18.0) g/dl Hct (42-52) % MCV (80-94) fL MCH (27-31) pg MCHC (31-36) g/dl RDW (10.5-15) % Plt Count (150-450) 10^3/ul MPV (7.4-10.4) um3 Neut % (Auto) (38-83) % Lymph % (Auto) (25-47) % [place] % (Auto) (1-9) % Eos % (Auto) (0-6) % Baso % (Auto) (0-2) % Absolute Neuts (auto) (1.5-7.7) 10^3/ul Absolute Lymphs (auto) (1.0-4.8) 10^3/ul Absolute Monos (auto) (0-0.8) 10^3/ul Absolute Eos (auto) (0-0.6) 10^3/ul Absolute Basos (auto) (0-0.2) 10^3/ul Absolute Nucleated RBC 10^3/ul Nucleated RBC % INR (Anticoag Therapy) 0.97 (0.89-1.11) Sodium 140 (133-145) mmol/L Potassium 3.7 (3.5-5.0) mmol/L Chloride 103 (101-111) mmol/L Carbon Dioxide 30 (22-32) mmol/L Anion Gap 7 (2-11) mmol/L BUN 34 H (6-24) mg/dL Creatinine 0.87 (0.67-1.17) mg/dL Est GFR ( Amer) 114.7 (>60) Est GFR (Non-Af Amer) 89.2 (>60) BUN/Creatinine Ratio 39.1 H (8-20) Glucose 77 (70-100) mg/dL Lactic Acid (0.5-2.0) mmol/L Calcium 9.8 (8.6-10.3) mg/dL Total Bilirubin 0.40 (0.2-1.0) mg/dL AST 55 H (13-39) U/L ALT 59 H (7-52) U/L Alkaline Phosphatase 44 (34-104) U/L Ammonia 36 (16-53) mol/L Total Creatine Kinase 521 H (10-223) U/L Troponin I 0.01 (<0.04) ng/mL Total Protein 7.0 (6.4-8.9) g/dL Albumin 4.1 (3.2-5.2) g/dL Globulin 2.9 (2-4) g/dL Albumin/Globulin Ratio 1.4 (1-3) TSH (0.34-5.60) mcIU/mL Urine Color Urine Appearance Urine pH (5-9) Ur Specific Triangle (1.010-1.030) Urine Protein (Negative) Urine Ketones (Negative) Urine Blood (Negative) Urine Nitrate (Negative) Urine Bilirubin (Negative) Urine Urobilinogen (Negative) Ur Leukocyte Esterase (Negative) Urine Glucose (Negative) Salicylates (<30) mg/dL Urine Opiates Screen (None Detect) Acetaminophen mcg/mL Ur Barbiturates Screen (None Detect) Ur Phencyclidine Scrn (None Detect) Ur Amphetamines Screen (None Detect) U Benzodiazepines Scrn (None Detect) Urine Cocaine Screen (None Detect) U Cannabinoids Screen (None Detect) Serum Alcohol (<10) mg/dL 01/14/17 01/14/17 01/14/17 Range/Units 13:15 13:15 13:30 WBC 8.3 (3.5-10.8) 10^3/ul RBC 4.86 (4.0-5.4) 10^6/ul Hgb 15.1 (14.0-18.0) g/dl Hct 45 (42-52) % MCV 92 (80-94) fL MCH 31 (27-31) pg MCHC 34 (31-36) g/dl RDW 14 (10.5-15) % Plt Count 184 (150-450) 10^3/ul MPV 9 (7.4-10.4) um3 Neut % (Auto) 58.0 (38-83) % Lymph % (Auto) 21.6 L (25-47) % [place] % (Auto) 18.7 H (1-9) % Eos % (Auto) 1.3 (0-6) % Baso % (Auto) 0.4 (0-2) % Absolute Neuts (auto) 4.8 (1.5-7.7) 10^3/ul Absolute Lymphs (auto) 1.8 (1.0-4.8) 10^3/ul Absolute Monos (auto) 1.6 H (0-0.8) 10^3/ul Absolute Eos (auto) 0.1 (0-0.6) 10^3/ul Absolute Basos (auto) 0 (0-0.2) 10^3/ul Absolute Nucleated RBC 0 10^3/ul Nucleated RBC % 0 INR (Anticoag Therapy) (0.89-1.11) Sodium (133-145) mmol/L Potassium (3.5-5.0) mmol/L Chloride (101-111) mmol/L Carbon Dioxide (22-32) mmol/L Anion Gap (2-11) mmol/L BUN (6-24) mg/dL Creatinine (0.67-1.17) mg/dL Est GFR ( Amer) (>60) Est GFR (Non-Af Amer) (>60) BUN/Creatinine Ratio (8-20) Glucose (70-100) mg/dL Lactic Acid (0.5-2.0) mmol/L Calcium (8.6-10.3) mg/dL Total Bilirubin (0.2-1.0) mg/dL AST (13-39) U/L ALT (7-52) U/L Alkaline Phosphatase (34-104) U/L Ammonia (16-53) mol/L Total Creatine Kinase (10-223) U/L Troponin I (<0.04) ng/mL Total Protein (6.4-8.9) g/dL Albumin (3.2-5.2) g/dL Globulin (2-4) g/dL Albumin/Globulin Ratio (1-3) TSH (0.34-5.60) mcIU/mL Urine Color Yellow Urine Appearance Clear Urine pH 5.0 (5-9) Ur Specific Triangle 1.014 (1.010-1.030) Urine Protein Negative (Negative) Urine Ketones Trace H (Negative) Urine Blood Negative (Negative) Urine Nitrate Negative (Negative) Urine Bilirubin Negative (Negative) Urine Urobilinogen Negative (Negative) Ur Leukocyte Esterase Negative (Negative) Urine Glucose Negative (Negative) Salicylates (<30) mg/dL Urine Opiates Screen None detected (None Detect) Acetaminophen mcg/mL Ur Barbiturates Screen None detected (None Detect) Ur Phencyclidine Scrn None detected (None Detect) Ur Amphetamines Screen None detected (None Detect) U Benzodiazepines Scrn None detected (None Detect) Urine Cocaine Screen None detected (None Detect) U Cannabinoids Screen Presumptive positive H (None Detect) Serum Alcohol (<10) mg/dL 01/14/17 01/14/17 Range/Units 13:30 13:30 WBC (3.5-10.8) 10^3/ul RBC (4.0-5.4) 10^6/ul Hgb (14.0-18.0) g/dl Hct (42-52) % MCV (80-94) fL MCH (27-31) pg MCHC (31-36) g/dl RDW (10.5-15) % Plt Count (150-450) 10^3/ul MPV (7.4-10.4) um3 Neut % (Auto) (38-83) % Lymph % (Auto) (25-47) % [place] % (Auto) (1-9) % Eos % (Auto) (0-6) % Baso % (Auto) (0-2) % Absolute Neuts (auto) (1.5-7.7) 10^3/ul Absolute Lymphs (auto) (1.0-4.8) 10^3/ul Absolute Monos (auto) (0-0.8) 10^3/ul Absolute Eos (auto) (0-0.6) 10^3/ul Absolute Basos (auto) (0-0.2) 10^3/ul Absolute Nucleated RBC 10^3/ul Nucleated RBC % INR (Anticoag Therapy) (0.89-1.11) Sodium (133-145) mmol/L Potassium (3.5-5.0) mmol/L Chloride (101-111) mmol/L Carbon Dioxide (22-32) mmol/L Anion Gap (2-11) mmol/L BUN (6-24) mg/dL Creatinine (0.67-1.17) mg/dL Est GFR ( Amer) (>60) Est GFR (Non-Af Amer) (>60) BUN/Creatinine Ratio (8-20) Glucose (70-100) mg/dL Lactic Acid 0.8 (0.5-2.0) mmol/L Calcium (8.6-10.3) mg/dL Total Bilirubin (0.2-1.0) mg/dL AST (13-39) U/L ALT (7-52) U/L Alkaline Phosphatase (34-104) U/L Ammonia (16-53) mol/L Total Creatine Kinase (10-223) U/L Troponin I (<0.04) ng/mL Total Protein (6.4-8.9) g/dL Albumin (3.2-5.2) g/dL Globulin (2-4) g/dL Albumin/Globulin Ratio (1-3) TSH 1.66 (0.34-5.60) mcIU/mL Urine Color Urine Appearance Urine pH (5-9) Ur Specific Triangle (1.010-1.030) Urine Protein (Negative) Urine Ketones (Negative) Urine Blood (Negative) Urine Nitrate (Negative) Urine Bilirubin (Negative) Urine Urobilinogen (Negative) Ur Leukocyte Esterase (Negative) Urine Glucose (Negative) Salicylates < 2.50 (<30) mg/dL Urine Opiates Screen (None Detect) Acetaminophen < 15 mcg/mL Ur Barbiturates Screen (None Detect) Ur Phencyclidine Scrn (None Detect) Ur Amphetamines Screen (None Detect) U Benzodiazepines Scrn (None Detect) Urine Cocaine Screen (None Detect) U Cannabinoids Screen (None Detect) Serum Alcohol < 10 (<10) mg/dL Result Diagrams: 01/14/17 13:30 01/14/17 12:45 Lab Statement: Any lab studies that have been ordered have been reviewed, and results considered in the medical decision making process. - Radiology CXR Radiology Interpretation Completed By: Radiologist - MILD LEFT BASILAR ABNORMALITIES. SUGGEST FOLLOW-UP - CT CT Brain CT Interpretation Completed By: Radiologist - CORTICAL ATROPHY WITH CHRONIC MICROVASCULAR ISCHEMIC CHANGES. NO ACUTE FINDINGS. - EKG 1314 Cardiac Rate: NL EKG Rhythm: Sinus Rhythm EKG Interpretation: NAC Complex Multi-Symp Course/Dx Course Of Treatment: Mr. Gill was sent in because he was weak today and couldn't walk, he was very sleepy when during his stay but would readily awaken to voice albeit temporarily. His W/U was negative but he was unable to ambulate and the hospitalists were asked to evaulate him. - Diagnoses Provider Diagnoses: Weakness - Physician Notifications Discussed Care Of Patient With: Flori Benavides Time Discussed With Above Provider: 15:10 Instructed by Provider To: Other - Consulted Dr. Benavides (hospitalist) who agrees to admit. Discharge - Discharge Plan Condition: Stable Disposition: ADMITTED TO [facility] documentation as recorded by the Wes maxwell Alfonso accurately reflects the service I personally performed and the decisions made by me, Devon Bass MD.
[2017-01-15] MEDS: Heparin VIAL(*) 5000 UNITS/ML VIAL (FIVE THOUSAND) SUBCUT SCH ×3 (05:31→21:13)
[2017-01-15 06:52] LABS: BUN/Creatinine Ratio 35.9 (8-20); EGFR African American 130.1 (>60); EGFR Non-African American 101.2 (>60)
[2017-01-15] MEDS: Magnesium Oxide TAB* 400 MG PO SCH (09:24)
[2017-01-15] MEDS: Furosemide TAB* 40 MG PO SCH (09:24)
[2017-01-15] MEDS: Cholecalciferol TAB* 1000 UNITS PO SCH (09:24)
--- NOTE | 2017-01-15 10:59 | PN ---
Subjective Date of Service: 01/15/17 Interval History: Patient seen and examined at bedside. He reports feeling tired from being up a lot and woken up frequently. He continues to endorse tremors that are not noted when sleeping but are noted when patient awakes. Denies fever/chills, CP, SOB, n /v. Family History: Unchanged from Admission Social History: Unchanged from Admission Past Medical History: Unchanged from Admission Objective Active Medications: Al Hydrox/Mg Hydrox/Simethicone (Maalox Plus*) 30 ml PO Q4HR PRN PRN Reason: INDIGESTION Last Admin: 01/14/17 19:57 Dose: 30 ml Cholecalciferol (Vitamin D Tab*) 1,000 units PO DAILY [facility] Last Admin: 01/15/17 09:24 Dose: 1,000 units Divalproex Sodium (Depakote Er Tab(*)) 2,000 mg PO BEDTIME [facility] Last Admin: 01/14/17 19:56 Dose: 2,000 mg Furosemide (Lasix Tab*) 40 mg PO DAILY [facility] Last Admin: 01/15/17 09:24 Dose: 40 mg Guaifenesin/Dextromethorphan (Robitussin Dm*) 5 ml PO QID PRN PRN Reason: COUGH Last Admin: 01/14/17 19:57 Dose: 5 ml Heparin Sodium (Porcine) (Heparin Vial(*)) 5,000 units SUBCUT Q8HR [facility] Last Admin: 01/15/17 05:31 Dose: 5,000 units Magnesium Hydroxide (Milk Of Magnesia Liq*) 30 ml PO Q4HR PRN PRN Reason: CONSTIPATION Last Admin: 01/14/17 19:57 Dose: 30 ml Magnesium Oxide (Magox 400 Tab*) 400 mg PO DAILY [facility] Last Admin: 01/15/17 09:24 Dose: 400 mg Polyethylene Glycol/Electrolytes (Miralax*) 17 gm PO DAILY [facility] Terazosin HCl (Hytrin Cap*) 2 mg PO BEDTIME [facility] Last Admin: 01/14/17 19:56 Dose: 2 mg Vital Signs 01/14/17 01/14/17 01/14/17 15:30 16:15 16:40 Temperature 97.4 F Pulse Rate 63 72 Respiratory 18 Rate Blood Pressure 146/91 139/89 146/100 (mmHg) O2 Sat by Pulse 96 98 Oximetry 01/14/17 01/14/17 01/14/17 16:47 19:46 20:00 Temperature 97.4 F 97.4 F Pulse Rate 72 65 Respiratory 18 20 20 Rate Blood Pressure 146/100 135/51 (mmHg) O2 Sat by Pulse 98 99 Oximetry 01/14/17 01/15/17 01/15/17 23:21 04:15 07:52 Temperature 97.6 F 98.2 F 97.5 F Pulse Rate 94 73 55 Respiratory 16 16 16 Rate Blood Pressure 119/57 147/79 111/51 (mmHg) O2 Sat by Pulse 100 90 99 Oximetry 01/15/17 09:31 Temperature Pulse Rate Respiratory 16 Rate Blood Pressure (mmHg) O2 Sat by Pulse Oximetry Oxygen Devices in Use Now: None Appearance: Male patient, sleepy but arousable, OOB to chair, in NAD Eyes: No Scleral Icterus, PERRLA Ears/Nose/Mouth/Throat: Clear Oropharnyx, Mucous Membranes Moist Neck: NL Appearance and Movements; NL JVP Respiratory: Symmetrical Chest Expansion and Respiratory Effort, Clear to Auscultation Cardiovascular: NL Sounds; No Murmurs; No JVD, RRR Abdominal: NL Sounds; No Tenderness; No Distention Extremities: No Clubbing, Cyanosis, - - trace LE edema Skin: No Rash or Ulcers Neurological: Alert and Oriented x 3, - - resting tremor noted Lines/Tubes/Other Access: Clean, Dry and Intact Peripheral IV Nutrition: Taking PO's Result Diagrams: 01/14/17 13:30 01/15/17 05:50 Additional Lab and Data: Lab Results 01/14/17 01/14/17 01/14/17 Range/Units 12:45 12:45 12:45 WBC (3.5-10.8) 10^3/ul RBC (4.0-5.4) 10^6/ul Hgb (14.0-18.0) g/dl Hct (42-52) % MCV (80-94) fL MCH (27-31) pg MCHC (31-36) g/dl RDW (10.5-15) % Plt Count (150-450) 10^3/ul MPV (7.4-10.4) um3 Neut % (Auto) (38-83) % Lymph % (Auto) (25-47) % Stevens % (Auto) (1-9) % Eos % (Auto) (0-6) % Baso % (Auto) (0-2) % Absolute Neuts (auto) (1.5-7.7) 10^3/ul Absolute Lymphs (auto) (1.0-4.8) 10^3/ul Absolute Monos (auto) (0-0.8) 10^3/ul Absolute Eos (auto) (0-0.6) 10^3/ul Absolute Basos (auto) (0-0.2) 10^3/ul Absolute Nucleated RBC 10^3/ul Nucleated RBC % INR (Anticoag Therapy) 0.97 (0.89-1.11) Sodium 140 (133-145) mmol/L Potassium 3.7 (3.5-5.0) mmol/L Chloride 103 (101-111) mmol/L Carbon Dioxide 30 (22-32) mmol/L Anion Gap 7 (2-11) mmol/L BUN 34 H (6-24) mg/dL Creatinine 0.87 (0.67-1.17) mg/dL Est GFR ( Amer) 114.7 (>60) Est GFR (Non-Af Amer) 89.2 (>60) BUN/Creatinine Ratio 39.1 H (8-20) Glucose 77 (70-100) mg/dL Lactic Acid (0.5-2.0) mmol/L Calcium 9.8 (8.6-10.3) mg/dL Total Bilirubin 0.40 (0.2-1.0) mg/dL AST 55 H (13-39) U/L ALT 59 H (7-52) U/L Alkaline Phosphatase 44 (34-104) U/L Ammonia 36 (16-53) mol/L Total Creatine Kinase 521 H (10-223) U/L Troponin I 0.01 (<0.04) ng/mL Total Protein 7.0 (6.4-8.9) g/dL Albumin 4.1 (3.2-5.2) g/dL Globulin 2.9 (2-4) g/dL Albumin/Globulin Ratio 1.4 (1-3) TSH (0.34-5.60) mcIU/mL Urine Color Urine Appearance Urine pH (5-9) Ur Specific Sunman (1.010-1.030) Urine Protein (Negative) Urine Ketones (Negative) Urine Blood (Negative) Urine Nitrate (Negative) Urine Bilirubin (Negative) Urine Urobilinogen (Negative) Ur Leukocyte Esterase (Negative) Urine Glucose (Negative) Salicylates (<30) mg/dL Urine Opiates Screen (None Detect) Acetaminophen mcg/mL Ur Barbiturates Screen (None Detect) Ur Phencyclidine Scrn (None Detect) Ur Amphetamines Screen (None Detect) U Benzodiazepines Scrn (None Detect) Urine Cocaine Screen (None Detect) U Cannabinoids Screen (None Detect) Serum Alcohol (<10) mg/dL 01/14/17 01/14/17 01/14/17 Range/Units 13:15 13:15 13:30 WBC 8.3 (3.5-10.8) 10^3/ul RBC 4.86 (4.0-5.4) 10^6/ul Hgb 15.1 (14.0-18.0) g/dl Hct 45 (42-52) % MCV 92 (80-94) fL MCH 31 (27-31) pg MCHC 34 (31-36) g/dl RDW 14 (10.5-15) % Plt Count 184 (150-450) 10^3/ul MPV 9 (7.4-10.4) um3 Neut % (Auto) 58.0 (38-83) % Lymph % (Auto) 21.6 L (25-47) % Stevens % (Auto) 18.7 H (1-9) % Eos % (Auto) 1.3 (0-6) % Baso % (Auto) 0.4 (0-2) % Absolute Neuts (auto) 4.8 (1.5-7.7) 10^3/ul Absolute Lymphs (auto) 1.8 (1.0-4.8) 10^3/ul Absolute Monos (auto) 1.6 H (0-0.8) 10^3/ul Absolute Eos (auto) 0.1 (0-0.6) 10^3/ul Absolute Basos (auto) 0 (0-0.2) 10^3/ul Absolute Nucleated RBC 0 10^3/ul Nucleated RBC % 0 INR (Anticoag Therapy) (0.89-1.11) Sodium (133-145) mmol/L Potassium (3.5-5.0) mmol/L Chloride (101-111) mmol/L Carbon Dioxide (22-32) mmol/L Anion Gap (2-11) mmol/L BUN (6-24) mg/dL Creatinine (0.67-1.17) mg/dL Est GFR ( Amer) (>60) Est GFR (Non-Af Amer) (>60) BUN/Creatinine Ratio (8-20) Glucose (70-100) mg/dL Lactic Acid (0.5-2.0) mmol/L Calcium (8.6-10.3) mg/dL Total Bilirubin (0.2-1.0) mg/dL AST (13-39) U/L ALT (7-52) U/L Alkaline Phosphatase (34-104) U/L Ammonia (16-53) mol/L Total Creatine Kinase (10-223) U/L Troponin I (<0.04) ng/mL Total Protein (6.4-8.9) g/dL Albumin (3.2-5.2) g/dL Globulin (2-4) g/dL Albumin/Globulin Ratio (1-3) TSH (0.34-5.60) mcIU/mL Urine Color Yellow Urine Appearance Clear Urine pH 5.0 (5-9) Ur Specific Sunman 1.014 (1.010-1.030) Urine Protein Negative (Negative) Urine Ketones Trace H (Negative) Urine Blood Negative (Negative) Urine Nitrate Negative (Negative) Urine Bilirubin Negative (Negative) Urine Urobilinogen Negative (Negative) Ur Leukocyte Esterase Negative (Negative) Urine Glucose Negative (Negative) Salicylates (<30) mg/dL Urine Opiates Screen None detected (None Detect) Acetaminophen mcg/mL Ur Barbiturates Screen None detected (None Detect) Ur Phencyclidine Scrn None detected (None Detect) Ur Amphetamines Screen None detected (None Detect) U Benzodiazepines Scrn None detected (None Detect) Urine Cocaine Screen None detected (None Detect) U Cannabinoids Screen Presumptive positive H (None Detect) Serum Alcohol (<10) mg/dL 01/14/17 01/14/17 Range/Units 13:30 13:30 WBC (3.5-10.8) 10^3/ul RBC (4.0-5.4) 10^6/ul Hgb (14.0-18.0) g/dl Hct (42-52) % MCV (80-94) fL MCH (27-31) pg MCHC (31-36) g/dl RDW (10.5-15) % Plt Count (150-450) 10^3/ul MPV (7.4-10.4) um3 Neut % (Auto) (38-83) % Lymph % (Auto) (25-47) % Stevens % (Auto) (1-9) % Eos % (Auto) (0-6) % Baso % (Auto) (0-2) % Absolute Neuts (auto) (1.5-7.7) 10^3/ul Absolute Lymphs (auto) (1.0-4.8) 10^3/ul Absolute Monos (auto) (0-0.8) 10^3/ul Absolute Eos (auto) (0-0.6) 10^3/ul Absolute Basos (auto) (0-0.2) 10^3/ul Absolute Nucleated RBC 10^3/ul Nucleated RBC % INR (Anticoag Therapy) (0.89-1.11) Sodium (133-145) mmol/L Potassium (3.5-5.0) mmol/L Chloride (101-111) mmol/L Carbon Dioxide (22-32) mmol/L Anion Gap (2-11) mmol/L BUN (6-24) mg/dL Creatinine (0.67-1.17) mg/dL Est GFR ( Amer) (>60) Est GFR (Non-Af Amer) (>60) BUN/Creatinine Ratio (8-20) Glucose (70-100) mg/dL Lactic Acid 0.8 (0.5-2.0) mmol/L Calcium (8.6-10.3) mg/dL Total Bilirubin (0.2-1.0) mg/dL AST (13-39) U/L ALT (7-52) U/L Alkaline Phosphatase (34-104) U/L Ammonia (16-53) mol/L Total Creatine Kinase (10-223) U/L Troponin I (<0.04) ng/mL Total Protein (6.4-8.9) g/dL Albumin (3.2-5.2) g/dL Globulin (2-4) g/dL Albumin/Globulin Ratio (1-3) TSH 1.66 (0.34-5.60) mcIU/mL Urine Color Urine Appearance Urine pH (5-9) Ur Specific Sunman (1.010-1.030) Urine Protein (Negative) Urine Ketones (Negative) Urine Blood (Negative) Urine Nitrate (Negative) Urine Bilirubin (Negative) Urine Urobilinogen (Negative) Ur Leukocyte Esterase (Negative) Urine Glucose (Negative) Salicylates < 2.50 (<30) mg/dL Urine Opiates Screen (None Detect) Acetaminophen < 15 mcg/mL Ur Barbiturates Screen (None Detect) Ur Phencyclidine Scrn (None Detect) Ur Amphetamines Screen (None Detect) U Benzodiazepines Scrn (None Detect) Urine Cocaine Screen (None Detect) U Cannabinoids Screen (None Detect) Serum Alcohol < 10 (<10) mg/dL Microbiology and Other Data: Microbiology 01/14/17 15:35 Nasal Screen MRSA (PCR)(ARLENE) - Final Nasal Mrsa Negative Assess/Plan/Problems-Billing Assessment: Mr. Gill is a 61 yo male with a PMH of bipolar disorder, HTN, AUSTIN, and obesity who presented to the ED on 01/14 with concern for weakness and a resting tremor. - Patient Problems (1) Weakness Code(s): R53.1 - WEAKNESS Comment: Appreciate neurology input Obtain MRI brain Also suspect some physical deconditioning PT/OT evals (2) Tremor Code(s): R25.1 - TREMOR, UNSPECIFIED Comment: Appreciate neurology consult May be secondary to medications (clonazepam, Prolixin, diphenhydramine), which have been discontinued Continue evaluation for reversible causes Question if this could be Parkinson's Continue PT/OT (3) Bipolar disorder Comment: Continue home Depakote. (4) AUSTIN (obstructive sleep apnea) Code(s): G47.33 - OBSTRUCTIVE SLEEP APNEA (ADULT) (PEDIATRIC) Comment: Continue CPAP use. (5) HTN (hypertension) Code(s): I10 - ESSENTIAL (PRIMARY) HYPERTENSION Comment: Mostly normotensive Continue home terazosin, furosemide. (6) DVT prophylaxis Comment: SQ heparin Status and Disposition: OBV to inpatient admit. Anticipate LOS>2 days.
[2017-01-15 11:55] LABS: Free T4 0.94 ng/dL (0.61-1.12)
[2017-01-15 12:03] LABS: Folate > 20.00 ng/mL (>3.99)
[2017-01-15 12:04] LABS: Vitamin B12 880 pg/mL (180-914)
--- NOTE | 2017-01-15 12:26 | CONS ---
CONSULTATION REPORT: DATE OF CONSULT: 01/15/17 LOCATION: He is currently located in bed 412. REASON FOR CONSULTATION: Tremor. HISTORY OF PRESENT ILLNESS: Mr. Gill is a very nice 61-year-old gentleman who has a known history of hypertension, obstructive sleep apnea, history of low vitamin D, bipolar type 1. He states that he has had bipolar for years and has been treated with various medications. Most recently, he has been on Depakote 2000 mg orally at bedtime for over 2 years. He also notes being treated with Prolixin in the past as well as possibly Zyprexa. This were stopped several months ago. He also has a history of taking Benadryl, which was stopped in October 2016. It appears that his Prolixin and Klonopin were also stopped sometime in October of 2016. He lives in a residential currently. He notes acute onset of bilateral upper extremity tremor on 11/25/16. He states that he awoke with the tremor. He notes that the tremor is worse with movement , although he also notes that the tremor is significant at rest. It tends to involve the right hand and arm more than the left hand and arm. He notes difficulty getting out of chairs and difficulty walking. He apparently fell yesterday and states that his legs became very weak and he fell down landing on his buttocks, but no head trauma. He notes problems with constipation. He feels that his handwriting has worsened as well. He has no family history of Parkinson's disease that he is aware of. He denies any focal weakness, tingling , speech difficulties, vision changes, headaches. He notes that the tremor is worse when he is stressed, but appears to be present most of the time. He has been told that he does not have it during sleep and he can suppress the tremor for sometime. He notes that he occasionally drinks alcohol and occasionally smokes marijuana. He denies any recent animal bites or tick bites. He denies any recent fevers, chills, nausea, vomiting, diarrhea, constipation. He denies any recent dysuria, frequency, urgency, chest pain, shortness of breath, dyspnea on exertion. He has otherwise been in his usual state of health. He does feel that the tremor is worsening. PAST MEDICAL HISTORY: As above. 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 MEDICATIONS: His home medications include: 1. Vitamin D3. 2. Depakote 2000 mg at bedtime. 3. Furosemide 40 mg daily. 4. Terazosin 2 mg daily. 5. Naproxen 375 mg twice daily. 6. Magnesium 400 mg daily. 7. Acetaminophen 500 mg p.r.n. 8. Milk of magnesia 30 mL p.r.n. 9. Maalox 30 mL p.r.n. 10. Robitussin 5 mL p.r.n. 11. Kaopectate 30 mL p.r.n. 12. Multivitamin one daily. Prior medications include, Klonopin, Prolixin, and Benadryl, which have been stopped. SOCIAL HISTORY: Notes smoking between a half a pack and a pack a day for the last 20 plus years. Rare alcohol use and marijuana use. Denies any history of alcohol abuse. REVIEW OF SYSTEMS: Review of systems in 14 organ systems as above, otherwise negative. ALLERGIES: No known drug allergies. PHYSICAL EXAMINATION: General: He is a well-nourished, well-developed, obese gentleman sitting in his hospital bed. He is pleasant. HEENT: He is normocephalic, atraumatic. Sclerae anicteric. Mucous membranes are moist. Oropharynx is clear. Nares are patent. Neck is supple. No thyromegaly. No carotid bruits. Chest: Clear to auscultation bilaterally. Cardiovascular: Regular rate and rhythm without murmurs. Abdomen: Nontender, nondistended. Extremities: No clubbing, cyanosis. He does have some mild dependent edema in his feet with some chronic vascular changes in his feet. Neurologic Exam: He is awake, alert. He is oriented x3. His speech is fluent, although there is some mild hypophonia and it is very slow. There is no dysarthria. Cranial nerves, II through XII, his pupils are equal, round, and reactive to light. Visual jaramillo are full. Extraocular muscles are intact. His face is symmetric. He has intact sensation. Hearing is intact bilaterally. His tongue is midline. Palate elevates symmetrically. Sternocleidomastoid and shoulder shrug are both normal. He spontaneously moves all extremities antigravity. He is very slow. His tone is increased throughout, greater on the right arm than the left arm, but he shows no evidence of weakness. He is able to do [id number] and rapid alternating movements with some intention tremor, but he has a noted resting tremor in the right upper and left upper extremities, pill rolling in nature, noticeable when at rest, but also worsens when he moves. His DTRs were trace throughout, equivocal Babinski. Sensation is intact to light touch, pinprick, vibration, proprioception in all extremities. Gait is slow with a shuffle. He had to use a walker. Had difficulty getting up out of his bed, but he is stable. DIAGNOSTIC STUDIES/LAB DATA: CBC with diff that was essentially normal. INR of 0.97. Chemistry was essentially normal. AST and ALT were elevated. Total creatine kinase of 521. Troponin was 0.01. TSH is 1.66. Urine showed trace ketones, otherwise negative. Tox is positive for cannabinoids. Chest x-ray showed mild left basilar abnormality, suggest followup. Brain CT showed cortical atrophy with chronic macrovascular ischemic changes, no acute findings. ASSESSMENT AND PLAN: Mr. Gill is a 61-year-old gentleman with a history of bipolar, on multiple medications, currently on Depakote, previously on Prolixin and he believes Zyprexa, as well as Benadryl. These have been off since October 2016. He notes acute onset of a tremor on 11/25/16. He is very specific he woke up with the tremor. The tremor is parkinsonian in nature and he has multiple parkinsonian features on examination. Given the acute onset of symptoms, my concern would be that he could have a stroke, possibly subcortical in the basal ganglia. 1. The plan is to get an MRI of his brain with and without contrast, more concerning would be the possibility of tardive dyskinesia or parkinsonian symptoms related to his underlying neuroleptic use. 2. He was on multiple medications that are well known to cause parkinsonian symptoms. He is now off of those medications, which is typically the treatment of choice initially. Patients with drug-induced parkinsonian symptoms oftentimes do not tolerate or improve with parkinsonian medication such as Sinemet. In addition, I worry that that might worsen his mental status and psychiatric conditions. Currently, he denies any hallucinations. He does have problems sleeping, but has obstructive sleep apnea. His gait is very parkinsonian as well. I do think we need to get some PT/OT. 3. I am going to check labs today to rule out other reversible causes of tremor. His ammonia was negative. No history of heavy alcohol use. No withdrawal-type symptoms. I am going to hold on any medications at this time pending further review of his studies. I will continue to follow him closely and make further recommendations as necessary. Thank you for the opportunity to participate in his care. [id number]/[facility] #: [id number] KHALIDA
[2017-01-15] MEDS: Polyethylene Glycol 3350* 17 GM PACKET PO SCH (13:56)
[2017-01-15] MEDS ORDERED: Gadoteridol* (CONTRAST) 279.3 MG/ML 10 ML IV ONE (15:50)
--- NOTE | 2017-01-15 17:52 | RAD ---
INDICATION: New onset tremor. COMPARISON: Comparison is made with prior CTs of the brain from August 08, 2011 and January 14, 2017. TECHNIQUE: Sagittal T1, axial T1, T2, susceptibility, FLAIR and diffusion-weighted images were obtained. In addition, axial, sagittal and coronal T1-weighted images were obtained following intravenous injection of 20 ml of ProHance contrast. FINDINGS: The ventricles, cisterns and sulci are prominent consistent with diffuse atrophy. There are a few small scattered areas of increased signal intensity present in the subcortical and periventricular white matter suggestive of mild chronic small vessel ischemic changes. No other focal abnormality or mass effect is seen. No abnormal area of enhancement is seen. No areas of restricted diffusion are present. There is no evidence for infarct or hemorrhage. There is a small 1 cm mucous retention cysts in the inferior portion of the right maxillary sinus. The visualized portion of the paranasal sinuses and mastoid air cells otherwise appear clear. Incidental note is made of a nodule present within the scalp adjacent to the right temporal bone measuring 1.5 x 0.8 cm in size. IMPRESSION: 1. NO EVIDENCE FOR ACUTE FINDING. 2. DIFFUSE ATROPHY.
[2017-01-15] MEDS: Terazosin CAP* 1 MG PO SCH (21:11)
[2017-01-15] MEDS: Divalproex ER TAB(*) 500 MG PO SCH (21:11)
[2017-01-16] MEDS: Heparin VIAL(*) 5000 UNITS/ML VIAL (FIVE THOUSAND) SUBCUT SCH ×3 (05:22→20:53)
[2017-01-16 06:25] LABS: HDL Cholesterol 52.6 mg/dL
[2017-01-16] MEDS: Furosemide TAB* 40 MG PO SCH (09:25)
[2017-01-16] MEDS: Cholecalciferol TAB* 1000 UNITS PO SCH (09:25)
[2017-01-16] MEDS: Polyethylene Glycol 3350* 17 GM PACKET PO SCH (09:25)
[2017-01-16] MEDS: Magnesium Oxide TAB* 400 MG PO SCH (09:25)
[2017-01-16] MEDS ORDERED: Cyclobenzaprine TAB* 10 MG PO PRN (11:11)
[2017-01-16] MEDS: Carbidopa/Levodop 25/100 MG TAB(*) PO SCH ×2 (11:37→15:38)
--- NOTE | 2017-01-16 15:16 | PN ---
Subjective Date of Service: 01/16/17 Interval History: Patient seen and examined at bedside. Denies fever/chills, CP, SOB, n/v. Overall states he is feeling "pretty good." He still feels a bit weak but feels as if PT is helping him. No other acute concerns. Family History: Unchanged from Admission Social History: Unchanged from Admission Past Medical History: Unchanged from Admission Objective Active Medications: Al Hydrox/Mg Hydrox/Simethicone (Maalox Plus*) 30 ml PO Q4HR PRN PRN Reason: INDIGESTION Last Admin: 01/14/17 19:57 Dose: 30 ml Carbidopa/Levodopa (Sinemet 25/100 Tab(*)) 0.5 tab PO TID AC [facility] Last Admin: 01/16/17 11:37 Dose: 0.5 tab Cholecalciferol (Vitamin D Tab*) 1,000 units PO DAILY [facility] Last Admin: 01/16/17 09:25 Dose: 1,000 units Cyclobenzaprine HCl (Flexeril Tab*) 10 mg PO BID PRN PRN Reason: SPASMS Divalproex Sodium (Depakote Er Tab(*)) 2,000 mg PO BEDTIME [facility] Last Admin: 01/15/17 21:11 Dose: 2,000 mg Furosemide (Lasix Tab*) 40 mg PO DAILY [facility] Last Admin: 01/16/17 09:25 Dose: 40 mg Guaifenesin/Dextromethorphan (Robitussin Dm*) 5 ml PO QID PRN PRN Reason: COUGH Last Admin: 01/14/17 19:57 Dose: 5 ml Heparin Sodium (Porcine) (Heparin Vial(*)) 5,000 units SUBCUT Q8HR [facility] Last Admin: 01/16/17 13:42 Dose: 5,000 units Magnesium Hydroxide (Milk Of Magnesia Liq*) 30 ml PO Q4HR PRN PRN Reason: CONSTIPATION Last Admin: 01/14/17 19:57 Dose: 30 ml Magnesium Oxide (Magox 400 Tab*) 400 mg PO DAILY [facility] Last Admin: 01/16/17 09:25 Dose: 400 mg Polyethylene Glycol/Electrolytes (Miralax*) 17 gm PO DAILY [facility] Last Admin: 01/16/17 09:25 Dose: 17 gm Terazosin HCl (Hytrin Cap*) 2 mg PO BEDTIME [facility] Last Admin: 01/15/17 21:11 Dose: 2 mg Vital Signs 01/15/17 01/15/17 01/15/17 15:25 19:21 20:00 Temperature 97.8 F 97.4 F Pulse Rate 58 72 Respiratory 16 20 20 Rate Blood Pressure 117/82 92/62 (mmHg) O2 Sat by Pulse 98 98 Oximetry 01/15/17 01/16/17 01/16/17 23:30 03:01 07:29 Temperature 97.7 F 97.4 F Pulse Rate 53 54 59 Respiratory 17 17 18 Rate Blood Pressure 112/70 126/65 (mmHg) O2 Sat by Pulse 97 97 99 Oximetry 01/16/17 08:00 Temperature Pulse Rate Respiratory 16 Rate Blood Pressure (mmHg) O2 Sat by Pulse Oximetry Oxygen Devices in Use Now: None Appearance: Male patient, OOB to chair, in NAD Eyes: No Scleral Icterus Ears/Nose/Mouth/Throat: Clear Oropharnyx, Mucous Membranes Moist Neck: NL Appearance and Movements; NL JVP Respiratory: Symmetrical Chest Expansion and Respiratory Effort, Clear to Auscultation Cardiovascular: NL Sounds; No Murmurs; No JVD, RRR Abdominal: NL Sounds; No Tenderness; No Distention Extremities: No Clubbing, Cyanosis, - - 2+ pitting BLE edema Neurological: Alert and Oriented x 3, - - tremor notes to bilateral hands Lines/Tubes/Other Access: Clean, Dry and Intact Peripheral IV Nutrition: Taking PO's Result Diagrams: 01/14/17 13:30 01/15/17 05:50 Additional Lab and Data: Lab Results 01/14/17 01/14/17 01/14/17 Range/Units 12:45 12:45 12:45 WBC (3.5-10.8) 10^3/ul RBC (4.0-5.4) 10^6/ul Hgb (14.0-18.0) g/dl Hct (42-52) % MCV (80-94) fL MCH (27-31) pg MCHC (31-36) g/dl RDW (10.5-15) % Plt Count (150-450) 10^3/ul MPV (7.4-10.4) um3 Neut % (Auto) (38-83) % Lymph % (Auto) (25-47) % [place] % (Auto) (1-9) % Eos % (Auto) (0-6) % Baso % (Auto) (0-2) % Absolute Neuts (auto) (1.5-7.7) 10^3/ul Absolute Lymphs (auto) (1.0-4.8) 10^3/ul Absolute Monos (auto) (0-0.8) 10^3/ul Absolute Eos (auto) (0-0.6) 10^3/ul Absolute Basos (auto) (0-0.2) 10^3/ul Absolute Nucleated RBC 10^3/ul Nucleated RBC % INR (Anticoag Therapy) 0.97 (0.89-1.11) Sodium 140 (133-145) mmol/L Potassium 3.7 (3.5-5.0) mmol/L Chloride 103 (101-111) mmol/L Carbon Dioxide 30 (22-32) mmol/L Anion Gap 7 (2-11) mmol/L BUN 34 H (6-24) mg/dL Creatinine 0.87 (0.67-1.17) mg/dL Est GFR ( Amer) 114.7 (>60) Est GFR (Non-Af Amer) 89.2 (>60) BUN/Creatinine Ratio 39.1 H (8-20) Glucose 77 (70-100) mg/dL Lactic Acid (0.5-2.0) mmol/L Calcium 9.8 (8.6-10.3) mg/dL Total Bilirubin 0.40 (0.2-1.0) mg/dL AST 55 H (13-39) U/L ALT 59 H (7-52) U/L Alkaline Phosphatase 44 (34-104) U/L Ammonia 36 (16-53) mol/L Total Creatine Kinase 521 H (10-223) U/L Troponin I 0.01 (<0.04) ng/mL Total Protein 7.0 (6.4-8.9) g/dL Albumin 4.1 (3.2-5.2) g/dL Globulin 2.9 (2-4) g/dL Albumin/Globulin Ratio 1.4 (1-3) TSH (0.34-5.60) mcIU/mL Urine Color Urine Appearance Urine pH (5-9) Ur Specific [place] (1.010-1.030) Urine Protein (Negative) Urine Ketones (Negative) Urine Blood (Negative) Urine Nitrate (Negative) Urine Bilirubin (Negative) Urine Urobilinogen (Negative) Ur Leukocyte Esterase (Negative) Urine Glucose (Negative) Salicylates (<30) mg/dL Urine Opiates Screen (None Detect) Acetaminophen mcg/mL Ur Barbiturates Screen (None Detect) Ur Phencyclidine Scrn (None Detect) Ur Amphetamines Screen (None Detect) U Benzodiazepines Scrn (None Detect) Urine Cocaine Screen (None Detect) U Cannabinoids Screen (None Detect) Serum Alcohol (<10) mg/dL 01/14/17 01/14/17 01/14/17 Range/Units 13:15 13:15 13:30 WBC 8.3 (3.5-10.8) 10^3/ul RBC 4.86 (4.0-5.4) 10^6/ul Hgb 15.1 (14.0-18.0) g/dl Hct 45 (42-52) % MCV 92 (80-94) fL MCH 31 (27-31) pg MCHC 34 (31-36) g/dl RDW 14 (10.5-15) % Plt Count 184 (150-450) 10^3/ul MPV 9 (7.4-10.4) um3 Neut % (Auto) 58.0 (38-83) % Lymph % (Auto) 21.6 L (25-47) % [place] % (Auto) 18.7 H (1-9) % Eos % (Auto) 1.3 (0-6) % Baso % (Auto) 0.4 (0-2) % Absolute Neuts (auto) 4.8 (1.5-7.7) 10^3/ul Absolute Lymphs (auto) 1.8 (1.0-4.8) 10^3/ul Absolute Monos (auto) 1.6 H (0-0.8) 10^3/ul Absolute Eos (auto) 0.1 (0-0.6) 10^3/ul Absolute Basos (auto) 0 (0-0.2) 10^3/ul Absolute Nucleated RBC 0 10^3/ul Nucleated RBC % 0 INR (Anticoag Therapy) (0.89-1.11) Sodium (133-145) mmol/L Potassium (3.5-5.0) mmol/L Chloride (101-111) mmol/L Carbon Dioxide (22-32) mmol/L Anion Gap (2-11) mmol/L BUN (6-24) mg/dL Creatinine (0.67-1.17) mg/dL Est GFR ( Amer) (>60) Est GFR (Non-Af Amer) (>60) BUN/Creatinine Ratio (8-20) Glucose (70-100) mg/dL Lactic Acid (0.5-2.0) mmol/L Calcium (8.6-10.3) mg/dL Total Bilirubin (0.2-1.0) mg/dL AST (13-39) U/L ALT (7-52) U/L Alkaline Phosphatase (34-104) U/L Ammonia (16-53) mol/L Total Creatine Kinase (10-223) U/L Troponin I (<0.04) ng/mL Total Protein (6.4-8.9) g/dL Albumin (3.2-5.2) g/dL Globulin (2-4) g/dL Albumin/Globulin Ratio (1-3) TSH (0.34-5.60) mcIU/mL Urine Color Yellow Urine Appearance Clear Urine pH 5.0 (5-9) Ur Specific [place] 1.014 (1.010-1.030) Urine Protein Negative (Negative) Urine Ketones Trace H (Negative) Urine Blood Negative (Negative) Urine Nitrate Negative (Negative) Urine Bilirubin Negative (Negative) Urine Urobilinogen Negative (Negative) Ur Leukocyte Esterase Negative (Negative) Urine Glucose Negative (Negative) Salicylates (<30) mg/dL Urine Opiates Screen None detected (None Detect) Acetaminophen mcg/mL Ur Barbiturates Screen None detected (None Detect) Ur Phencyclidine Scrn None detected (None Detect) Ur Amphetamines Screen None detected (None Detect) U Benzodiazepines Scrn None detected (None Detect) Urine Cocaine Screen None detected (None Detect) U Cannabinoids Screen Presumptive positive H (None Detect) Serum Alcohol (<10) mg/dL 01/14/17 01/14/17 Range/Units 13:30 13:30 WBC (3.5-10.8) 10^3/ul RBC (4.0-5.4) 10^6/ul Hgb (14.0-18.0) g/dl Hct (42-52) % MCV (80-94) fL MCH (27-31) pg MCHC (31-36) g/dl RDW (10.5-15) % Plt Count (150-450) 10^3/ul MPV (7.4-10.4) um3 Neut % (Auto) (38-83) % Lymph % (Auto) (25-47) % [place] % (Auto) (1-9) % Eos % (Auto) (0-6) % Baso % (Auto) (0-2) % Absolute Neuts (auto) (1.5-7.7) 10^3/ul Absolute Lymphs (auto) (1.0-4.8) 10^3/ul Absolute Monos (auto) (0-0.8) 10^3/ul Absolute Eos (auto) (0-0.6) 10^3/ul Absolute Basos (auto) (0-0.2) 10^3/ul Absolute Nucleated RBC 10^3/ul Nucleated RBC % INR (Anticoag Therapy) (0.89-1.11) Sodium (133-145) mmol/L Potassium (3.5-5.0) mmol/L Chloride (101-111) mmol/L Carbon Dioxide (22-32) mmol/L Anion Gap (2-11) mmol/L BUN (6-24) mg/dL Creatinine (0.67-1.17) mg/dL Est GFR ( Amer) (>60) Est GFR (Non-Af Amer) (>60) BUN/Creatinine Ratio (8-20) Glucose (70-100) mg/dL Lactic Acid 0.8 (0.5-2.0) mmol/L Calcium (8.6-10.3) mg/dL Total Bilirubin (0.2-1.0) mg/dL AST (13-39) U/L ALT (7-52) U/L Alkaline Phosphatase (34-104) U/L Ammonia (16-53) mol/L Total Creatine Kinase (10-223) U/L Troponin I (<0.04) ng/mL Total Protein (6.4-8.9) g/dL Albumin (3.2-5.2) g/dL Globulin (2-4) g/dL Albumin/Globulin Ratio (1-3) TSH 1.66 (0.34-5.60) mcIU/mL Urine Color Urine Appearance Urine pH (5-9) Ur Specific [place] (1.010-1.030) Urine Protein (Negative) Urine Ketones (Negative) Urine Blood (Negative) Urine Nitrate (Negative) Urine Bilirubin (Negative) Urine Urobilinogen (Negative) Ur Leukocyte Esterase (Negative) Urine Glucose (Negative) Salicylates < 2.50 (<30) mg/dL Urine Opiates Screen (None Detect) Acetaminophen < 15 mcg/mL Ur Barbiturates Screen (None Detect) Ur Phencyclidine Scrn (None Detect) Ur Amphetamines Screen (None Detect) U Benzodiazepines Scrn (None Detect) Urine Cocaine Screen (None Detect) U Cannabinoids Screen (None Detect) Serum Alcohol < 10 (<10) mg/dL Microbiology and Other Data: Microbiology 01/14/17 15:35 Nasal Screen MRSA (PCR)(ARLENE) - Final Nasal Mrsa Negative Assess/Plan/Problems-Billing Assessment: Mr. Gill is a 61 yo male with a PMH of bipolar disorder, HTN, [place]UST[place], and obesity who presented to the ED on 01/14 with concern for weakness and a resting tremor. - Patient Problems (1) Weakness Code(s): R53.1 - WEAKNESS Comment: Appreciate neurology input MRI brain negative for acute CVA Also suspect some physical deconditioning PT/OT evals, PMRU referral (2) Tremor Code(s): R25.1 - TREMOR, UNSPECIFIED Comment: Appreciate neurology consult May be secondary to medications (Zyprexa, Prolixin, diphenhydramine), which have been discontinued Continue evaluation for reversible causes Question if this could be Parkinson's Continue PT/OT (3) Bipolar disorder Comment: Continue home Depakote. (4) [place]UST[place] (obstructive sleep apnea) Code(s): G47.33 - OBSTRUCTIVE SLEEP APNEA (ADULT) (PEDIATRIC) Comment: Continue CPAP use. (5) HTN (hypertension) Code(s): I10 - ESSENTIAL (PRIMARY) HYPERTENSION Comment: Mostly normotensive Continue home terazosin, furosemide. (6) DVT prophylaxis Comment: SQ heparin Status and Disposition: Inpatient admit. Anticipate LOS>2 days. Likely will need rehab.
[2017-01-16 16:45] LABS: Free Valproic Acid 20 mcg/mL (5 - 25); Total Valproic Acid 73 mcg/mL (50 - 125)
--- NOTE | 2017-01-16 18:37 | PN ---
PROGRESS NOTE: DATE OF PROGRESS NOTE: 01/16/17 LOCATION: He is in room 412. SUBJECTIVE: The patient has done well overnight. No new issues. He continues to have right greater than left tremor but it is not worse. He continues to have some difficulty ambulating. The patient is discussing referral for physical therapy inpatient at this time. No new issues overnight. OBJECTIVE: Vital Signs: Temp of 97.4, pulse rate of 59, respiratory rate of 18 , pulse ox 99%, blood pressure 126/65. Vital signs have been stable. General: He is a well-nourished, well-developed gentleman. He is obese, no acute distress, sitting in his chair by the bed. He is normocephalic, atraumatic. Sclerae anicteric. Mucous membranes are moist. Oropharynx is clear. Nares are patent. Neck is supple. No thyromegaly. No carotid bruits. Chest: Clear to auscultation bilaterally. Cardiovascular: Regular rate and rhythm. Abdomen : Obese, nontender. Extremities: No cyanosis, clubbing. He has 2+ edema in the lower extremities, nonpitting. Neurologic Exam: He is awake, alert, oriented x3. His speech is fluent. There is no dysarthria. Repetition is intact. He has some mild hypophonia. He has decreased facial expression. Cranial Nerves: Pupils equal, round, and reactive to light. Visual jaramillo are full. Extraocular muscles are intact. Face is symmetric. Facial sensation is intact. Tongue is midline. Oropharynx and palate are symmetric. He spontaneously moves all extremities antigravity, generally 5/5 throughout. He has increased tone in the right upper greater than left upper and right lower greater than left lower extremities with some cogwheeling in the right upper extremity greater than the left upper extremity. He has a resting tremor in the right greater than left arm as well as some intention tremor bilaterally. No evidence of ataxia. Sensation is grossly intact to light touch and pinprick in the upper and lower extremities. DTRs are absent throughout. STUDIES: LDL was 81, HDL of 53.6, cholesterol 150, triglycerides of 84. He had an MRI of the brain, which showed atrophy but no acute issues. Films were reviewed. ASSESSMENT AND PLAN: Mr. Gill is a 61-year-old gentleman with a history of bipolar disease, previously on Prolixin and possibly Zyprexa in the past, developed what he describes as acute onset of upper extremity tremors right greater than left, resting in nature. He has stigmata of Parkinson's disease including hypomimia, hypophonia, resting tremor, shuffling gait. I suspect that this is either iatrogenic from his previous neuroleptic medications versus primary Parkinson's disease difficult to tell at this point but the acute onset suggests iatrogenic cause. Plan is to try him on low-dose Sinemet, we will start at 3 times a day, 30 minutes prior to meals, although if this is indeed secondary Parkinson, they often times do not respond well to medications. I told him that my plan is to follow him up in clinic as well after his physical therapy and we will make further adjustments. Ultimately, the treatment for secondary Parkinson's related to medication is stopping offending agent which he is now off of. I will continue to follow him. [id number]/CPS #: [id number] MTDD
[2017-01-16] MEDS: Divalproex ER TAB(*) 500 MG PO SCH (20:53)
[2017-01-16] MEDS: Terazosin CAP* 1 MG PO SCH (20:53)
[2017-01-17] MEDS: Heparin VIAL(*) 5000 UNITS/ML VIAL (FIVE THOUSAND) SUBCUT SCH ×2 (06:10→14:33)
[2017-01-17] MEDS: Cholecalciferol TAB* 1000 UNITS PO SCH (08:13)
[2017-01-17] MEDS: Polyethylene Glycol 3350* 17 GM PACKET PO SCH (08:13)
[2017-01-17] MEDS: Furosemide TAB* 40 MG PO SCH (08:13)
[2017-01-17] MEDS: Magnesium Oxide TAB* 400 MG PO SCH (08:13)
[2017-01-17] MEDS: Carbidopa/Levodop 25/100 MG TAB(*) PO SCH ×2 (08:13→11:45)
--- NOTE | 2017-01-17 08:19 | PN ---
Subjective Date of Service: 01/17/17 Interval History: Patient seen and examined at bedside. No acute complaints, denies fever/chills, CP, SOB, n/v. Feels very proud of his progress with ambulation and working with PT. Patient is happy to try Sinemet and follow with neuro. No other acute concerns at this time. Family History: Unchanged from Admission Social History: Unchanged from Admission Past Medical History: Unchanged from Admission Objective Active Medications: Al Hydrox/Mg Hydrox/Simethicone (Maalox Plus*) 30 ml PO Q4HR PRN PRN Reason: INDIGESTION Last Admin: 01/14/17 19:57 Dose: 30 ml Carbidopa/Levodopa (Sinemet 25/100 Tab(*)) 0.5 tab PO TID AC [facility] Last Admin: 01/16/17 15:38 Dose: 0.5 tab Cholecalciferol (Vitamin D Tab*) 1,000 units PO DAILY [facility] Last Admin: 01/16/17 09:25 Dose: 1,000 units Cyclobenzaprine HCl (Flexeril Tab*) 10 mg PO BID PRN PRN Reason: SPASMS Divalproex Sodium (Depakote Er Tab(*)) 2,000 mg PO BEDTIME [facility] Last Admin: 01/16/17 20:53 Dose: 2,000 mg Furosemide (Lasix Tab*) 40 mg PO DAILY [facility] Last Admin: 01/16/17 09:25 Dose: 40 mg Guaifenesin/Dextromethorphan (Robitussin Dm*) 5 ml PO QID PRN PRN Reason: COUGH Last Admin: 01/14/17 19:57 Dose: 5 ml Heparin Sodium (Porcine) (Heparin Vial(*)) 5,000 units SUBCUT Q8HR [facility] Last Admin: 01/17/17 06:10 Dose: 5,000 units Magnesium Hydroxide (Milk Of Magnesia Liq*) 30 ml PO Q4HR PRN PRN Reason: CONSTIPATION Last Admin: 01/14/17 19:57 Dose: 30 ml Magnesium Oxide (Magox 400 Tab*) 400 mg PO DAILY [facility] Last Admin: 01/16/17 09:25 Dose: 400 mg Polyethylene Glycol/Electrolytes (Miralax*) 17 gm PO DAILY [facility] Last Admin: 01/16/17 09:25 Dose: 17 gm Terazosin HCl (Hytrin Cap*) 2 mg PO BEDTIME [facility] Last Admin: 01/16/17 20:53 Dose: 2 mg Vital Signs 01/16/17 01/16/17 01/16/17 15:27 20:00 20:08 Temperature 97.8 F 97.6 F Pulse Rate 64 65 Respiratory 18 19 20 Rate Blood Pressure 107/80 111/72 (mmHg) O2 Sat by Pulse 97 97 Oximetry 01/17/17 00:04 Temperature 97.7 F Pulse Rate 62 Respiratory 16 Rate Blood Pressure 135/92 (mmHg) O2 Sat by Pulse 100 Oximetry Oxygen Devices in Use Now: None Appearance: Older male patient, OOB to chair, in NAD Eyes: No Scleral Icterus Ears/Nose/Mouth/Throat: Mucous Membranes Moist Neck: NL Appearance and Movements; NL JVP Respiratory: Symmetrical Chest Expansion and Respiratory Effort, Clear to Auscultation Cardiovascular: NL Sounds; No Murmurs; No JVD, RRR Abdominal: NL Sounds; No Tenderness; No Distention Neurological: Alert and Oriented x 3, - - resting hand tremors noted Lines/Tubes/Other Access: Clean, Dry and Intact Peripheral IV Nutrition: Taking PO's Result Diagrams: 01/14/17 13:30 01/15/17 05:50 Additional Lab and Data: Lab Results 01/14/17 01/14/17 01/14/17 Range/Units 12:45 12:45 12:45 WBC (3.5-10.8) 10^3/ul RBC (4.0-5.4) 10^6/ul Hgb (14.0-18.0) g/dl Hct (42-52) % MCV (80-94) fL MCH (27-31) pg MCHC (31-36) g/dl RDW (10.5-15) % Plt Count (150-450) 10^3/ul MPV (7.4-10.4) um3 Neut % (Auto) (38-83) % Lymph % (Auto) (25-47) % [place] % (Auto) (1-9) % Eos % (Auto) (0-6) % Baso % (Auto) (0-2) % Absolute Neuts (auto) (1.5-7.7) 10^3/ul Absolute Lymphs (auto) (1.0-4.8) 10^3/ul Absolute Monos (auto) (0-0.8) 10^3/ul Absolute Eos (auto) (0-0.6) 10^3/ul Absolute Basos (auto) (0-0.2) 10^3/ul Absolute Nucleated RBC 10^3/ul Nucleated RBC % INR (Anticoag Therapy) 0.97 (0.89-1.11) Sodium 140 (133-145) mmol/L Potassium 3.7 (3.5-5.0) mmol/L Chloride 103 (101-111) mmol/L Carbon Dioxide 30 (22-32) mmol/L Anion Gap 7 (2-11) mmol/L BUN 34 H (6-24) mg/dL Creatinine 0.87 (0.67-1.17) mg/dL Est GFR ( Amer) 114.7 (>60) Est GFR (Non-Af Amer) 89.2 (>60) BUN/Creatinine Ratio 39.1 H (8-20) Glucose 77 (70-100) mg/dL Lactic Acid (0.5-2.0) mmol/L Calcium 9.8 (8.6-10.3) mg/dL Total Bilirubin 0.40 (0.2-1.0) mg/dL AST 55 H (13-39) U/L ALT 59 H (7-52) U/L Alkaline Phosphatase 44 (34-104) U/L Ammonia 36 (16-53) mol/L Total Creatine Kinase 521 H (10-223) U/L Troponin I 0.01 (<0.04) ng/mL Total Protein 7.0 (6.4-8.9) g/dL Albumin 4.1 (3.2-5.2) g/dL Globulin 2.9 (2-4) g/dL Albumin/Globulin Ratio 1.4 (1-3) TSH (0.34-5.60) mcIU/mL Urine Color Urine Appearance Urine pH (5-9) Ur Specific [place] (1.010-1.030) Urine Protein (Negative) Urine Ketones (Negative) Urine Blood (Negative) Urine Nitrate (Negative) Urine Bilirubin (Negative) Urine Urobilinogen (Negative) Ur Leukocyte Esterase (Negative) Urine Glucose (Negative) Salicylates (<30) mg/dL Urine Opiates Screen (None Detect) Acetaminophen mcg/mL Ur Barbiturates Screen (None Detect) Ur Phencyclidine Scrn (None Detect) Ur Amphetamines Screen (None Detect) U Benzodiazepines Scrn (None Detect) Urine Cocaine Screen (None Detect) U Cannabinoids Screen (None Detect) Serum Alcohol (<10) mg/dL 01/14/17 01/14/17 01/14/17 Range/Units 13:15 13:15 13:30 WBC 8.3 (3.5-10.8) 10^3/ul RBC 4.86 (4.0-5.4) 10^6/ul Hgb 15.1 (14.0-18.0) g/dl Hct 45 (42-52) % MCV 92 (80-94) fL MCH 31 (27-31) pg MCHC 34 (31-36) g/dl RDW 14 (10.5-15) % Plt Count 184 (150-450) 10^3/ul MPV 9 (7.4-10.4) um3 Neut % (Auto) 58.0 (38-83) % Lymph % (Auto) 21.6 L (25-47) % [place] % (Auto) 18.7 H (1-9) % Eos % (Auto) 1.3 (0-6) % Baso % (Auto) 0.4 (0-2) % Absolute Neuts (auto) 4.8 (1.5-7.7) 10^3/ul Absolute Lymphs (auto) 1.8 (1.0-4.8) 10^3/ul Absolute Monos (auto) 1.6 H (0-0.8) 10^3/ul Absolute Eos (auto) 0.1 (0-0.6) 10^3/ul Absolute Basos (auto) 0 (0-0.2) 10^3/ul Absolute Nucleated RBC 0 10^3/ul Nucleated RBC % 0 INR (Anticoag Therapy) (0.89-1.11) Sodium (133-145) mmol/L Potassium (3.5-5.0) mmol/L Chloride (101-111) mmol/L Carbon Dioxide (22-32) mmol/L Anion Gap (2-11) mmol/L BUN (6-24) mg/dL Creatinine (0.67-1.17) mg/dL Est GFR ( Amer) (>60) Est GFR (Non-Af Amer) (>60) BUN/Creatinine Ratio (8-20) Glucose (70-100) mg/dL Lactic Acid (0.5-2.0) mmol/L Calcium (8.6-10.3) mg/dL Total Bilirubin (0.2-1.0) mg/dL AST (13-39) U/L ALT (7-52) U/L Alkaline Phosphatase (34-104) U/L Ammonia (16-53) mol/L Total Creatine Kinase (10-223) U/L Troponin I (<0.04) ng/mL Total Protein (6.4-8.9) g/dL Albumin (3.2-5.2) g/dL Globulin (2-4) g/dL Albumin/Globulin Ratio (1-3) TSH (0.34-5.60) mcIU/mL Urine Color Yellow Urine Appearance Clear Urine pH 5.0 (5-9) Ur Specific [place] 1.014 (1.010-1.030) Urine Protein Negative (Negative) Urine Ketones Trace H (Negative) Urine Blood Negative (Negative) Urine Nitrate Negative (Negative) Urine Bilirubin Negative (Negative) Urine Urobilinogen Negative (Negative) Ur Leukocyte Esterase Negative (Negative) Urine Glucose Negative (Negative) Salicylates (<30) mg/dL Urine Opiates Screen None detected (None Detect) Acetaminophen mcg/mL Ur Barbiturates Screen None detected (None Detect) Ur Phencyclidine Scrn None detected (None Detect) Ur Amphetamines Screen None detected (None Detect) U Benzodiazepines Scrn None detected (None Detect) Urine Cocaine Screen None detected (None Detect) U Cannabinoids Screen Presumptive positive H (None Detect) Serum Alcohol (<10) mg/dL 01/14/17 01/14/17 Range/Units 13:30 13:30 WBC (3.5-10.8) 10^3/ul RBC (4.0-5.4) 10^6/ul Hgb (14.0-18.0) g/dl Hct (42-52) % MCV (80-94) fL MCH (27-31) pg MCHC (31-36) g/dl RDW (10.5-15) % Plt Count (150-450) 10^3/ul MPV (7.4-10.4) um3 Neut % (Auto) (38-83) % Lymph % (Auto) (25-47) % [place] % (Auto) (1-9) % Eos % (Auto) (0-6) % Baso % (Auto) (0-2) % Absolute Neuts (auto) (1.5-7.7) 10^3/ul Absolute Lymphs (auto) (1.0-4.8) 10^3/ul Absolute Monos (auto) (0-0.8) 10^3/ul Absolute Eos (auto) (0-0.6) 10^3/ul Absolute Basos (auto) (0-0.2) 10^3/ul Absolute Nucleated RBC 10^3/ul Nucleated RBC % INR (Anticoag Therapy) (0.89-1.11) Sodium (133-145) mmol/L Potassium (3.5-5.0) mmol/L Chloride (101-111) mmol/L Carbon Dioxide (22-32) mmol/L Anion Gap (2-11) mmol/L BUN (6-24) mg/dL Creatinine (0.67-1.17) mg/dL Est GFR ( Amer) (>60) Est GFR (Non-Af Amer) (>60) BUN/Creatinine Ratio (8-20) Glucose (70-100) mg/dL Lactic Acid 0.8 (0.5-2.0) mmol/L Calcium (8.6-10.3) mg/dL Total Bilirubin (0.2-1.0) mg/dL AST (13-39) U/L ALT (7-52) U/L Alkaline Phosphatase (34-104) U/L Ammonia (16-53) mol/L Total Creatine Kinase (10-223) U/L Troponin I (<0.04) ng/mL Total Protein (6.4-8.9) g/dL Albumin (3.2-5.2) g/dL Globulin (2-4) g/dL Albumin/Globulin Ratio (1-3) TSH 1.66 (0.34-5.60) mcIU/mL Urine Color Urine Appearance Urine pH (5-9) Ur Specific Anderson (1.010-1.030) Urine Protein (Negative) Urine Ketones (Negative) Urine Blood (Negative) Urine Nitrate (Negative) Urine Bilirubin (Negative) Urine Urobilinogen (Negative) Ur Leukocyte Esterase (Negative) Urine Glucose (Negative) Salicylates < 2.50 (<30) mg/dL Urine Opiates Screen (None Detect) Acetaminophen < 15 mcg/mL Ur Barbiturates Screen (None Detect) Ur Phencyclidine Scrn (None Detect) Ur Amphetamines Screen (None Detect) U Benzodiazepines Scrn (None Detect) Urine Cocaine Screen (None Detect) U Cannabinoids Screen (None Detect) Serum Alcohol < 10 (<10) mg/dL Microbiology and Other Data: Microbiology 01/14/17 15:35 Nasal Screen MRSA (PCR)(ARLENE) - Final Nasal Mrsa Negative Assess/Plan/Problems-Billing Assessment: Mr. Gill is a 61 yo male with a PMH of bipolar disorder, HTN, AUSTIN, and obesity who presented to the ED on 01/14 with concern for weakness and a resting tremor. - Patient Problems (1) Weakness Code(s): R53.1 - WEAKNESS Comment: Appreciate neurology input MRI brain negative for acute CVA Also suspect some physical deconditioning PT/OT evals, PMRU referral (2) Tremor Code(s): R25.1 - TREMOR, UNSPECIFIED Comment: Appreciate neurology consult Question if primary or secondary Parkinson's May be secondary to medications (Zyprexa, Prolixin, diphenhydramine), which have been discontinued Started on Sinemet, outpatient f/u with neuro Continue PT/OT (3) Bipolar disorder Comment: Continue home Depakote. (4) AUSTIN (obstructive sleep apnea) Code(s): G47.33 - OBSTRUCTIVE SLEEP APNEA (ADULT) (PEDIATRIC) Comment: Continue CPAP use. (5) HTN (hypertension) Code(s): I10 - ESSENTIAL (PRIMARY) HYPERTENSION Comment: Mostly normotensive Continue home terazosin, furosemide. (6) DVT prophylaxis Comment: SQ heparin Status and Disposition: Inpatient admit. Anticipate LOS>2 days. Likely will need rehab.
--- NOTE | 2017-01-17 10:56 | PN ---
Progress Note - Progress Note Date of Service: 01/17/17 SOAP: Subjective: No issues overnight. He feels better on the Sinemet. Feels that it is helping his tremor and has helped his walking. Tolerating it without difficulty or side effects. "I feel so much better." Objective: Vital Signs Temp Pulse Resp BP Pulse Ox 97.3 F 58 16 112/54 99 01/17/17 07:48 01/17/17 07:48 01/17/17 08:00 01/17/17 07:48 01/17/17 07:48 Med: Al Hydrox/Mg Hydrox/Simethicone (Maalox Plus*) 30 ml PO Q4HR PRN PRN Reason: INDIGESTION Last Admin: 01/14/17 19:57 Dose: 30 ml Carbidopa/Levodopa (Sinemet 25/100 Tab(*)) 0.5 tab PO TID AC [facility] Last Admin: 01/17/17 08:13 Dose: 0.5 tab Cholecalciferol (Vitamin D Tab*) 1,000 units PO DAILY [facility] Last Admin: 01/17/17 08:13 Dose: 1,000 units Cyclobenzaprine HCl (Flexeril Tab*) 10 mg PO BID PRN PRN Reason: SPASMS Divalproex Sodium (Depakote Er Tab(*)) 2,000 mg PO BEDTIME [facility] Last Admin: 01/16/17 20:53 Dose: 2,000 mg Furosemide (Lasix Tab*) 40 mg PO DAILY [facility] Last Admin: 01/17/17 08:13 Dose: 40 mg Guaifenesin/Dextromethorphan (Robitussin Dm*) 5 ml PO QID PRN PRN Reason: COUGH Last Admin: 01/14/17 19:57 Dose: 5 ml Heparin Sodium (Porcine) (Heparin Vial(*)) 5,000 units SUBCUT Q8HR [facility] Last Admin: 01/17/17 06:10 Dose: 5,000 units Magnesium Hydroxide (Milk Of Magnesia Liq*) 30 ml PO Q4HR PRN PRN Reason: CONSTIPATION Last Admin: 01/14/17 19:57 Dose: 30 ml Magnesium Oxide (Magox 400 Tab*) 400 mg PO DAILY [facility] Last Admin: 01/17/17 08:13 Dose: 400 mg Polyethylene Glycol/Electrolytes (Miralax*) 17 gm PO DAILY [facility] Last Admin: 01/17/17 08:13 Dose: 17 gm Terazosin HCl (Hytrin Cap*) 2 mg PO BEDTIME [facility] Last Admin: 01/16/17 20:53 Dose: 2 mg ROS: Tremor, slowness, shuffling gait. Denies CP, SOA, GI complaints, complaints Exam: (On Sinemet) Awake, alert, oriented X 3 Sitting in his chair eating breakfast CTAB, RRR Abdomen obese, NT CN: PERRL, EOMI, VFF, Face symmetric, sensation intact, tongue midline, palate symmetric Motor: Moving all extremities with good resistance. Increased tone throughout. Cogweeling slightly improved Sensation: grossly intact to LT Gait: ambulates with assistance, slow, shuffles Assessment: Primary vs. Drug induced Parkinsons Plan: He is tolerating the Sinemet well. Continue current dose 25/100, 1/2 pill TID 30 min prior to meals. He is to go to rehab today Plan for follow up in my office for further adjustments over time His mood appears to be stable on the Depakote. Avoid atypicals I will sign off for now. Thank you for the opportunity to participate in his care.
[2017-01-17 11:50] VITALS: BP 105/72
--- NOTE | 2017-01-17 13:35 | RAD ---
INDICATION: Mild left basilar airspace [id number] COMPARISON: January 14, 2017 TECHNIQUE: PA and lateral dual-energy views were obtained. FINDINGS: Bones/Soft Tissues: There are no acute bony findings. Cardiomediastinal: The cardiomediastinal silhouette is normal. Lungs: There are no infiltrates. Pleura: There are no pleural effusions. Other: None IMPRESSION: NO ACTIVE DISEASE.
--- NOTE | 2017-01-18 07:48 | DS ---
DISCHARGE SUMMARY: * ADDENDUM: Prior to discharge, the patient had a followup chest x-ray with PA and lateral views to follow up on the initial mild left basilar airspace disease seen on his admission x-ray. The patient's followup x-ray showed no evidence of active disease. SALVADOR ALAN NP [id number]/[facility] #: [id number] KHALIDA
--- NOTE | 2017-01-18 08:13 | DS ---
ADDENDUM NOW INCLUDED ON THIS REPORT CC: GELA Carmona; Ruchi SOLIMAN * DISCHARGE SUMMARY: DATE OF ADMISSION: 01/14/17 DATE OF DISCHARGE: 01/17/17 PROVIDER: Salvador Alan NP. ATTENDING PHYSICIAN: Dr. Tristan Parkih * (as dictated by Salvador Alan NP) . CONSULTING PHYSICIAN: Dr. Randolph Rasmussen, Neurology. PRIMARY DISCHARGE DIAGNOSES: 1. Weakness. 2. Tremor, suspect secondary to Parkinson's disease, etiology unclear if primary versus drug-induced Parkinson's. 3. Mild left basilar abnormality seen on x-ray. SECONDARY DISCHARGE DIAGNOSES: 1. Bipolar type 1. 2. Hypertension. 3. Obesity. 4. Obstructive sleep apnea. 5. Vitamin D deficiency. HOME MEDICATIONS AT DISCHARGE: 1. Kaopectate 30 mL q.4 hours p.r.n. 2. Guaifenesin DM 5 mL 4 times a day p.r.n. 3. Maalox Plus 30 mL q.4 hours p.r.n. 4. Milk of magnesia 30 mL q.4 hours p.r.n. 5. Acetaminophen 500 mg q.4 hours p.r.n. 6. Multivitamin 1 tab daily. 7. Magnesium oxide 400 mg daily. 8. Terazosin 2 mg at bedtime. 9. Naproxen 375 mg b.i.d. 10. Furosemide 40 mg daily. 11. Depakote ER 2000 mg at bedtime. 12. Vitamin D3 1000 units daily. NEW MEDICATIONS AT DISCHARGE: 1. MiraLAX 17 g daily. 2. Sinemet 25/100, half tab t.i.d. with meals. Note: The patient's home clonazepam, diphenhydramine, and Prolixin has been discontinued secondary to suspected drug-induced Parkinson's symptoms. HOSPITAL COURSE OF STAY: For full details, please refer to the H and P provided by Neha Herrera NP, on 01/14/17. In summary, Mr. Gill was admitted to the ER after sustaining a fall at [facility]. The patient was also reporting a bilateral upper extremity tremor that started around 11/25/16. On admission, the patient had a chest x-ray that showed a mild right basilar abnormality, was suggested followup PA and lateral chest x- ray. He had a brain CT that showed cortical atrophy with chronic microvascular ischemic changes. His urine tox was positive for marijuana, but due to his complaints of weakness, the patient was admitted for further evaluation. The patient had PT and OT consult here in the hospital. We also appreciated Neurology consult. Dr. Rasmussen with [facility] saw the patient, he was concerned for a stroke. The patient did have an MRI of the brain, which showed no restricted diffusion to suggest CVA. There was diffuse atrophy. Dr. Rasmussen also checked additional laboratory studies including aldolase, vitamin B12, folate, TSH, and copper to rule out any other causes of tremors. It was determined that the patient may have a Parkinson's type tremor, but it is unclear if the cause is primary or secondary, secondary to the patient's neuroleptic medications. The patient has been doing well Depakote here, and reportedly has no longer been taking Prolixin, clonazepam, and diphenhydramine. He has been started on Sinemet here in the hospital, which he has tolerated well. The patient has reported good response to the medication and we will continue him on the current dose of half a pill of Sinemet 25/100 t.i.d., 30 minutes prior to meals. In regards to his weakness, the patient had PT and OT consult. Prior to discharge, the patient was able to demonstrate ambulation around the unit with minimal assistance. It was felt that he could go back to [facility] with visiting nurse services and home PT rather than having to go to rehab. The patient is in agreement with this plan. No other acute concern is noted. The patient has had stable vital signs. No signs of fever or acute infection. He has improved with his tremors and his ability to ambulate. CONCERNS AT DISCHARGE: Mr. Gill will be discharged to home at [facility] on 01/17/17. DIET: May resume previous diet. ACTIVITY: As tolerated. The patient should continue with PT. CONDITION: Stable. DISPOSITION: To [facility]. TIME SPENT: Time spent on this discharge was approximately 40 minutes. Again, this is only a brief summary of the patient's hospital course of stay. For full details, please refer to the full medical record. If you have any further questions or need further assistance, please feel free to contact me at . SALVADOR ALAN NP ADDENDUM: Prior to discharge, the patient had a followup chest x-ray with PA and lateral views to follow up on the initial mild left basilar airspace disease seen on his admission x-ray. The patient's followup x-ray showed no evidence of active disease. SALVADOR ALAN NP [id number]/[facility] #: [id number]/[facility] #: [id number] KHALIDA
== END 2017-01-17 16:40 | disposition home or self-care (01) | DRG 57 ==
LOC: ED 10:43 → MED 15:18 → OBSVTOIN 01-15 13:15
PROVIDERS: ADMIT Internal Medicine; ATTEND Internal Medicine
PROC: 5A09457 Assistance with Respiratory Ventilation, 24-96 Consecutive Hours, Continuous Positive Airway Pressure (ICD-10-PCS; principal; 2017-01-15)
DX: G21.11 Neuroleptic induced parkinsonism (principal); G31.9 Degenerative disease of nervous system, unspecified; I10 Essential (primary) hypertension; F31.9 Bipolar disorder, unspecified; G20 Parkinson's disease; T43.3X5A Adverse effect of phenothiazine antipsychotics and neuroleptics, initial encounter; E66.9 Obesity, unspecified; G47.33 Obstructive sleep apnea (adult) (pediatric); E55.9 Vitamin D deficiency, unspecified; F17.210 Nicotine dependence, cigarettes, uncomplicated; F12.90 Cannabis use, unspecified, uncomplicated; Z66 Do not resuscitate; J44.9 Chronic obstructive pulmonary disease, unspecified; H91.92 Unspecified hearing loss, left ear; Z97.4 Presence of external hearing-aid; Z68.38 Body mass index [BMI] 38.0-38.9, adult
CPT/HCPCS: 36415; 70450; 70553; 71010; 71020; 80048; 80053; 80061; 80164; 80165; 80307; 80320; 80329; 81003; 82085; 82140; 82390; 82525; 82550; 82607; 82746; 83036; 83605; 83874; 84439; 84443; 84484; 85025; 85610; 85652; 87641; 93005; 94660; A9270-GY; A9579; G0378; G0480; G8978-GP-CK; G8979-GP-CI; J1644

== ENCOUNTER 2017-03-03 11:18 | Emergency (ER) | payer MEDICARE ==
[2017-03-03 11:35] VITALS: BP 123/87
--- NOTE | 2017-03-03 14:45 | ED ---
Back Pain - HPI Summary HPI Summary: Pt here w/ chronic back pain - reports this is from his head down his spine x years. Intermittent. Was taking meloxicam in the past which worked well. Hasn't taken in a few months and so when he recently moved here from [place], he believes his PCP did not add it to his med list. No known h/o previous issues with this medication and denies h/o GI bleed, renal failure, heart disease. Currently denies ab pain, hematuria, hematochezia, dark/tarry stools. No fever, chills, N/V/D. Reports he has a rx for this medication but the staff at his place of residence have not been administering as it's not on his active list of meds. Requesting permission to start this medication. - History of Current Complaint Chief Complaint: EDPrescriptionNeeded Stated Complaint: PAIN ALL OVER Time Seen by Provider: 03/03/17 12:11 Hx Obtained From: Patient Pain Intensity: 10 - Allergies/Home Medications Allergies/Adverse Reactions: Allergies Allergy/AdvReac Type Severity Reaction Status Date / Time No Known Allergies Allergy Verified 01/14/17 11:12 Home Medications: Home Medications clonazePAM TAB(*) [KlonoPIN TAB(*)] 1 mg PO BEDTIME 03/03/17 [History Confirmed 03/03/17] PMH/Surg Hx/FS Hx/Imm Hx Previously Healthy: Yes Endocrine/Hematology History: Denies: Hx Anticoagulant Therapy, Hx Blood Disorders, Hx Diabetes, Hx Thyroid Disease, Hx Anemia, Hx Unexplained Bleeding Cardiovascular History: Reports: Hx Hypertension Denies: Hx Pacemaker/ICD Respiratory History: Reports: Hx Chronic Obstructive Pulmonary Disease (COPD) Denies: Hx Asthma GI History: Denies: Hx Gastroesophageal Reflux Disease, Hx Gastrointestinal Bleed, Hx Ulcer History: Reports: Other Problems/Disorders - Urethral constriction, 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 Denies: Hx Acute Renal Failure, Hx Chronic Renal Failure, Hx Renal Disease Musculoskeletal History: Reports: Other Musculoskeletal History - chronic back pain Sensory History: Reports: Hx Contacts or Glasses - Eyeglasses, Hx Hearing Aid - Patient wears hearing aide in left ear, lost on a train recently, Hx Hearing Problem - Left side Opthamlomology History: Reports: Hx Contacts or Glasses - Eyeglasses Neurological History: Denies: Hx Dementia, Hx Seizures Psychiatric History: Reports: Hx Substance Abuse, Other Psychiatric Issues/ Disorders - bipolar, isabella Denies: Hx Panic Disorder - Surgical History Surgery Procedure, Year, and Place: abdominal surgery - removal of ganglion. 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 Infectious Disease History: No Infectious Disease History: Denies: Hx Hepatitis, Hx Human Immunodeficiency Virus (HIV), History Other Infectious Disease, Traveled Outside the [place] in Last 30 Days - Family History Known Family History: Negative: Cardiac Disease, Hypertension, Diabetes - Social History Lives: Assisted Living - [facility] Alcohol Use: None Substance Use Type: Reports: Marijuana, Prescribed Hx Tobacco Use: Yes Smoking Status (MU): Current Every Day Smoker Review of Systems Constitutional: Negative Negative: Fever, Chills, Fatigue Cardiovascular: Negative Negative: Palpitations, Chest Pain Respiratory: Negative Negative: Shortness Of Breath, Cough Gastrointestinal: Negative Negative: Abdominal Pain, Vomiting, Diarrhea, Nausea Negative: hematuria Musculoskeletal: Other - see HPI Skin: Negative Neurological: Negative Negative: Headache, Weakness, Paresthesia, Numbness, Syncope, Slurred Speech Psychological: Normal All Other Systems Reviewed And Are Negative: Yes Physical Exam Triage Information Reviewed: Yes Vital Signs On Initial Exam: Initial Vitals Temp Pulse Resp BP Pulse Ox 97.4 F 66 18 123/87 99 03/03/17 11:25 03/03/17 11:25 03/03/17 11:25 03/03/17 11:25 03/03/17 11:25 Vital Signs Reviewed: Yes Appearance: Positive: Well-Appearing - pt sleeping upon entrance to room - had to physically stimulate him to evoke response - he woke easily from this and appears alert and oriented - has a resting tremor, No Pain Distress, Obese Skin: Positive: Warm, Dry ENT: Positive: Hearing grossly normal Respiratory/Lung Sounds: Positive: Breath Sounds Present Cardiovascular: Positive: RRR, Pulses are Symmetrical in both Upper and Lower Extremities Abdomen Description: Positive: Nontender, Soft Musculoskeletal: Positive: Strength/ROM Intact Neurological: Positive: Alert, Oriented to Person Place, Time, CN Intact II-III , Other - tremor as mentioned above - coordinated - able to stand and ambulate independently w/o difficulty Psychiatric: Positive: Normal - Kellee Coma Scale Coma Scale Total: 15 Diagnostics - Vital Signs Vital Signs Temp Pulse Resp BP Pulse Ox 03/03/17 11:25 97.4 F 66 18 123/87 99 - Laboratory Lab Statement: Any lab studies that have been ordered have been reviewed, and results considered in the medical decision making process. Back Pain Course/Dx - Course Course Of Treatment: Pt presents w/ chronic pain - requesting permission for staff at residence to administer meloxicam as he already has this but needs medical permission. He denies risk factors that may make this medication dangerous to take although naproxen is noted on his med list. After reviewing labs from 01/14/2017, he does not appear to have renal compromise, GI bleed w/ anemia and vitals are WNL today. He denies sx of GI bleed or previous issue here. Will rx meloxicam over the weekend and pt needs f/u w/ PCP for further prescription. - Diagnoses Provider Diagnoses: Chronic pain Discharge - Discharge Plan Condition: Stable Disposition: HOME Patient Education Materials: Chronic Pain (ED) Referrals: Alexandra Peng PA [Primary Care Provider] - Additional Instructions: You have reported chronic pain. This has been alleviated in the past with meloxicam. You report having this medication in your possession however staff is not administering as you do not have a current order for this. Based on your history, labs and vital signs, it has been determined that the risk of taking this over the weekend is very low - okay to administer 7.5mg daily with food for today, Sunday and Sunday. Patient needs to be seen by PCP for further administration orders. NOTE: PLEASE STOP NAPROXEN and avoid any other NSAID's while administering this medication. Return to ED if patient develops bleeding, bruising, abdominal pain, blood in urine or stool, chest pain or difficulty breathing.
== END 2017-03-03 15:28 | disposition home or self-care (01) ==
LOC: ED 11:18
DX: M54.9 Dorsalgia, unspecified (principal); G89.29 Other chronic pain; J44.9 Chronic obstructive pulmonary disease, unspecified; F17.200 Nicotine dependence, unspecified, uncomplicated
CPT/HCPCS: 99282

== ENCOUNTER 2017-04-14 19:49 | Inpatient (IN) | payer MEDICARE ==
[2017-04-14 20:17] LABS: Urine Bacteria Absent (Absent); Urine Bilirubin Negative (Negative); Urine Glucose Negative (Negative); Urine Nitrite Negative (Negative)
[2017-04-14 21:09] LABS: Hematocrit 48 % (42-52); Hemoglobin 16.9 g/dl (14.0-18.0); Mean Corpuscular HGB Conc 35 g/dl (31-36); Mean Corpuscular Hemoglobin 32 pg (27-31); Mean Corpuscular Volume 92 fL (80-94); Mean Platelet Volume 9 um3 (7.4-10.4); Red Blood Count 5.25 10^6/ul (4.0-5.4); Red Cell Distribution Width 14 % (10.5-15); White Blood Count 9.8 10^3/ul (3.5-10.8)
[2017-04-14 21:11] LABS: Add Diff/Slide Review? Slide Review Added; Comments Flag Yes
[2017-04-14 21:22] LABS: ALT 7 U/L (7-52); AST 22 U/L (13-39); Albumin 4.2 g/dL (3.2-5.2); Alkaline Phosphatase 57 U/L (34-104); Anion Gap 7 mmol/L (2-11); BUN/Creatinine Ratio 17.9 (8-20); Blood Urea Nitrogen 14 mg/dL (6-24); CO2 Carbon Dioxide 27 mmol/L (22-32); Calcium 10.1 mg/dL (8.6-10.3); Chloride 98 mmol/L (101-111); EGFR African American 130.1 (>60); EGFR Non-African American 101.2 (>60); Globulin 3.3 g/dL (2-4); Glucose 104 mg/dL (70-100); Sodium 132 mmol/L (133-145); Total Protein 7.5 g/dL (6.4-8.9)
[2017-04-14 21:44] LABS: Acetaminophen < 15 mcg/mL; Alcohol < 10 mg/dL (<10); Salicylate < 2.50 mg/dL (<30)
[2017-04-14] MEDS ORDERED: Cephalexin CAP* 500 MG PO ONE (22:03)
[2017-04-15] MEDS ORDERED: Nicotine GUM* 2 MG ONE (01:38)
[2017-04-15] MEDS: Nicotine GUM* 2 MG PO PRN (01:38)
[2017-04-15] MEDS ORDERED: Divalproex DR TAB(*) 500 MG PO ONE (02:52)
[2017-04-15] MEDS ORDERED: clonazePAM TAB(*) 1 MG PO ONE (02:52)
[2017-04-15] MEDS ORDERED: clonazePAM TAB(*) 0.5 MG PO ONE (04:00)
[2017-04-15] MEDS ORDERED: Naproxen TAB* 375 MG PO ONE (11:05)
[2017-04-15] MEDS ORDERED: Al Hydrox/Mg Hydrox/Simet LIQ* 30 ML UDC PO PRN (15:35)
[2017-04-15] MEDS: Acetaminophen TAB* 325 MG PO PRN ×2 (17:56→23:18)
--- NOTE | 2017-04-15 21:36 | HP ---
HISTORY AND PHYSICAL: DATE OF ADMISSION: 04/15/17 IDENTIFYING DATA: Jacinto is a 61-year-old mentally disabled male , who is being admitted for the third time on behavioral health unit. His last hospitalization here was on 09/20/16. CHIEF COMPLAINT: "I have been in communication with the God." HISTORY OF PRESENT ILLNESS: This patient was brought to the emergency department by EMS, who reported that he was out of control at [facility], which is an adult care facility and police was also called earlier yesterday. The patient on presentation to the emergency room was totally disorganized and was not making any sensible statement. Reportedly, he was trying to use the phone to contact the God. In the emergency room, his labs showed indication of UTI and his ammonia level was also 74, raising a concern that he could be delirious. During today's evaluation in the emergency room, he reported to this fiction and nonfiction prose writer that he was seeing and talking to the God. Rest of his conversation with me was nonsensical at best, as he was a very poor historian because of his disorganized thoughts and psychosis at that time. His prior hospitalization in August of this year was also under similar circumstances and he presented with multiple signs and symptoms of bipolar disorder including distractibility, indiscretion, grandiosity, flight of ideas, increased level of activity, sleeplessness, and pressured speech. It was discovered from his current medication list that after his discharge from this hospital, he was started on Sinemet because of uncontrollable tremors of both upper and lower extremities. However, there is no indication in his prior history and physical that he had a medical diagnosis of Parkinson's disease and his age does not support the diagnosis him being on Sinemet 3 times a day could have worsened his mental health situation and caused both auditory and visual hallucinations. He did not get his evening Sinemet, which helped him with his psychotic symptoms that he exhibited at the time of presentation to the emergency department and he was brought to the behavioral health unit, we did not give him his Sinemet either and he appears to be doing fine except for very mild tremors visible on his upper extremity, which could be EPS. Again, we may have to get a neurology consult to justify the use of Sinemet. PAST PSYCHIATRIC HISTORY: Obtained from previous record indicates that [facility] MEDICATIONS: His medications included: 1. Abilify. 2. Wellbutrin. 3. Depakote. Reportedly, he was first time hospitalized at [facility] in . Substance abuse history again obtained from previous record indicates that he is a regular smoker of marijuana. He also is a social drinker, smokes 1-1/2 packs of cigarettes every day. PAST MEDICAL HISTORY: Includes obesity, low vitamin D, hypertension. I am not sure about the other diagnosis of Parkinson's disease that he indicated for which he is on Sinemet. FAMILY HISTORY: Unknown, the patient is unable to provide. SOCIAL HISTORY: Obtained from previous records indicate that he was born and grew up in [place], [place]. He has 1 brother and 2 sisters; 1 sister lives in [place] who is his Rep payee. He used to live in [place]; however , moved to [facility] last year. He was twice and twice. Does not have any biological children, although he raised his second 's 4 children. He was stationed in [place] while he was in the [employer]. He does not have any combat history, but has VA services without any service connection. He is also on social security disability. No history of legal problems. He is very much involved with his yazidi and his client operations manager is supportive. PHYSICAL EXAMINATION Physical exam was deferred per the patient's request. Review of physical done in the emergency department was unremarkable. He does not appear to be in any physical distress at this time. Vital signs shows a blood pressure of 132/86, pulse rate 85, respirations 16, temperature 98, pulse ox 97% on room air. LABORATORY DATA: Lab done in the emergency department included CBC with differential, comprehensive metabolic profile, urinalysis, and tox screen. CBC shows a WBC count of 9.8, hemoglobin 16.9, hematocrit 48, platelet 238. CMP showed a sodium of 132, mildly lower than normal range; potassium 4; chloride 98 , slightly lower than normal range; carbon dioxide 27; BUN 14; creatinine 0.78; his ammonia level was 74. TSH within normal limits. Urinalysis showed some indication of urinary tract infection with a low specific gravity of 1.008, slight ketone, 1+ blood, 1+ leukocyte esterase. Urine wbc count 2+, urine rbc trace; however, bacteria was absent. Toxicology was negative and his valproic acid level was 77. MENTAL STATUS EXAMINATION: Jacinto is an average height, obese, male, wearing paper hospital scrub. His personal hygiene and grooming is poor. He is alert and oriented to time, place, and person. His speech is pressured and circumstantial and sometimes tangential with flight of ideas. Thought process is also circumstantial and tangential with deep pentecostalism preoccupation, some grandiosity, and ideas of references. He reported of seeing God and having verbal communication with God and wanted to call up God on the phone as well. He at times laughs inappropriately. Otherwise, pleasant and try to cooperate with the assessment to the best of his abilities. His insight and judgment appear to be fair as he wanted to cooperate with the admission process and treatments offered. He denies any suicidal or homicidal ideations. 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 On presentation, he was psychotic, manic, and totally disorganized requiring hospitalization on behavioral health unit for his protection, diagnostic clarification to rule out delirium or medication-induced psychosis. DIAGNOSTIC IMPRESSION: MENTAL HEALTH DIAGNOSES: Unspecified psychotic disorder, rule out Sinemet- induced psychosis; history of bipolar I disorder with psychosis. PHYSICAL HEALTH DIAGNOSES: Obesity, hypertension, rule out Parkinson's disease. TREATMENT RECOMMENDATIONS: Jacinto will be hospitalized on the behavioral health unit for his safety and safety of the community in general. His code status will remain full. Supportive milieu, individual, and group therapy will be initiated. I will continue Jacinto on all the psychotropic medications and hold off on Sinemet for now until a diagnostic clarification is in place with Neuro consult. [id number]/[facility] #: [id number] KHALIDA
[2017-04-16] MEDS ORDERED: Influenza VAC *QUAD* 2017-18* 0.5 ML SYRINGE IM ONE (09:00)
[2017-04-16] MEDS: Vitamin THERAPEUTIC TAB PO SCH (09:12)
[2017-04-16] MEDS: Acetaminophen TAB* 325 MG PO PRN (10:08)
--- NOTE | 2017-04-16 12:02 | PN ---
MHU: Group Therapy Note - Service Type Service Type: 00120 Group Psychotherapy - Cognitive Behavioral Group Therapy ( CBT):Patient presented in CBT programming as disorganized and disruptive in discussion and needed repeated redirection to attend to presented materials.
[2017-04-16] MEDS: Cholecalciferol TAB* 1000 UNITS PO SCH (13:07)
[2017-04-16] MEDS: Naproxen TAB* 375 MG PO SCH ×2 (13:07→21:45)
[2017-04-16] MEDS: Nicotine GUM* 2 MG PO PRN ×3 (14:00→21:44)
--- NOTE | 2017-04-16 15:52 | PN ---
Subjective - Subjective Service Type: 95520 Hosp care 15 min low complexity Subjective: Jacinto is calm and cooperative. Asks appropriately for staff pass and comfort room privileges. He states that he loves living at the [facility] and that they take good care of him there. He has been safe on all checks and we see none of the agitation or confusion that he was reported to have been displaying at his residential prior to admission. He denies SI or HI. He is poorly groomed and his paper scrubs are ripped, however, he is requesting pants and a belt be brought in by his brother. He demonstrates rhythmic tremors of his bilateral upper extremities, which are not new, and he asks to be put back on Sinemet. He denies racing thoughts or symptoms of isabella. Objective - Appearance Appearance: Obese Dysmorphic Features: No Hygiene: Dirty Grooming: Disheveled - Behavior Psychomotor Activities: Abnormal-Increased Exhibits Abnormal Movement: Yes - Attitude and Relatedness Attitude and Relatedness: Cooperative Eye Contact: Fair - Speech Quality: Unpressured Latencies: Normal Quantity: Appropriate - Mood Patient's Decription of Mood: "Good" - Affect Observed Affect: Fair Affect Consistent with: Euthymia - Thought Process Patient's Thought Process: Coherent Thought Content: No Passive Wish, No Suicidal Planning, No Homicidal Ideation, No Paranoid Ideation - Sensorium Experiencing Hallucinations: No, Sensorium is Clear Type of Hallucinations: Visual: No, Auditory: No, Command: No - Level of Consciousness Level of Consciousness: Alert Orientation: Yes Intact, Yes Orientated to Time, Yes Orientated to Place, Yes Orientated to Person - Impulse Control Impulse Control: Tenuous - Insight and Judgement Insight and Judgement: Fair - Group Participation Particating in Group Activities: Yes - Medication Management Medication Management Adherence: Yes Assessment - Assessment Merits Inpatient Hospitalization: For Ongoing Evaluation, Consolidate Improvements Inpatient DSM-IV Dx: Bipolar DO, NOS Clinical Impression: 61 y.o. single, white male [employer] with a history of bipolar disorder , brought in by ambulance on status secondary to agitated behavior at the [facility] residential in [place], [place]. Plan - Plan Treatment Plan: Name: JACINTO LANDRY Birthdate: 1955 [id number] We have resumed all outpatient medications, including Depakote ER, clonazepam, naproxyn and Vitamin D, but are holding Sinemet, thinking that medication may have caused his agitation. We will call his family and the [facility] for further collateral information. The patient is known to me from an admission in September of this year and this seems to be his baseline. Continue inpatient management. Continued Medication Management: Continue Outpt Medication Medications: Current Medications Acetaminophen (Tylenol Tab*) 650 mg PO Q4H PRN PRN Reason: PAIN or TEMP > 101 F Last Admin: 04/16/17 10:08 Dose: 650 mg Al Hydrox/Mg Hydrox/Simethicone (Maalox Plus*) 30 ml PO Q4H PRN PRN Reason: INDIGESTION Cholecalciferol (Vitamin D Tab*) 1,000 units PO DAILY [facility] Last Admin: 04/16/17 13:07 Dose: 1,000 units Clonazepam (Klonopin Tab(*)) 1 mg PO BEDTIME SRINIVAS Divalproex Sodium (Depakote Er Tab(*)) 2,000 mg PO BEDTIME SRINIVAS Multivitamins (Theragran Tab*) 1 tab PO DAILY SRINIVAS Last Admin: 04/16/17 09:12 Dose: 1 tab Naproxen (Naprosyn Tab*) 375 mg PO BID SRINIVAS Last Admin: 04/16/17 13:07 Dose: 375 mg Nicotine Polacrilex (Nicotine Gum*) 2 mg PO Q2H PRN PRN Reason: CRAVING Last Admin: 04/16/17 14:00 Dose: 2 mg Terazosin HCl (Hytrin Cap*) 2 mg PO BEDTIME SRINIVAS - Discharge Plan Discharge Plan: Inpatient Hospitalization
[2017-04-16] MEDS: clonazePAM TAB(*) 1 MG PO SCH (21:43)
[2017-04-16] MEDS: Divalproex ER TAB(*) 500 MG PO SCH (21:44)
[2017-04-16] MEDS: Terazosin CAP* 1 MG PO SCH (21:50)
[2017-04-17] MEDS: Acetaminophen TAB* 325 MG PO PRN ×4 (05:39→20:54)
[2017-04-17] MEDS: Naproxen TAB* 375 MG PO SCH ×2 (07:27→20:51)
[2017-04-17] MEDS: Vitamin THERAPEUTIC TAB PO SCH (07:28)
[2017-04-17] MEDS: Cholecalciferol TAB* 1000 UNITS PO SCH (07:28)
--- NOTE | 2017-04-17 11:31 | PN ---
Subjective - Subjective Service Type: 53331 Hosp care 15 min low complexity Subjective: Patient is tearful today, stating that his involuntary movements have worsened off of Sinemet and that he cannot even eat his lunch without spilling his food. "The medicine helps me stop this" he states, pointing to his upper right extremity, which is vigorously shaking. He denies SI or HI and has not had any behavioral issues thus far on the unit. Patient is appropriately requesting outside and comfort room privileges. Objective - Appearance Appearance: Obese Dysmorphic Features: No Hygiene: Dirty Grooming: Disheveled - Behavior Psychomotor Activities: Abnormal-Increased Exhibits Abnormal Movement: Yes - Attitude and Relatedness Attitude and Relatedness: Cooperative Eye Contact: Good - Speech Quality: Unpressured Latencies: Normal Quantity: Appropriate - Mood Patient's Decription of Mood: "Terrible" - Affect Observed Affect: Tearful Affect Consistent with: Dysphoria - Thought Process Patient's Thought Process: Coherent Thought Content: No Passive Wish, No Suicidal Planning, No Homicidal Ideation, No Paranoid Ideation - Sensorium Experiencing Hallucinations: No, Sensorium is Clear Type of Hallucinations: Visual: No, Auditory: No, Command: No - Level of Consciousness Level of Consciousness: Alert Orientation: Yes Intact, Yes Orientated to Time, Yes Orientated to Place, Yes Orientated to Person - Impulse Control Impulse Control: Tenuous - Insight and Judgement Insight and Judgement: Fair - Group Participation Particating in Group Activities: Yes - Medication Management Medication Management Adherence: Yes Assessment - Assessment Merits Inpatient Hospitalization: For Immediate Safety, For Stabilization Inpatient DSM-IV Dx: Bipolar DO, NOS Clinical Impression: 61 y.o. single, white male [employer] with a history of bipolar disorder , brought in by ambulance on status secondary to agitated behavior at the [facility] in [place], [place]. Plan - Plan Treatment Plan: Name: ANASTASIA LANDRY Birthdate: 1955 [id number] We have resumed all outpatient medications, including Depakote ER, clonazepam, naproxyn and Vitamin D, but had been holding Sinemet, thinking that medication may have caused his agitation. He is quite upset about his tremors and we will resume Sinemet 25/100 0.5 tabs PO TID and continue to monitor him. Thus far we have not seen any evidence of delusions or agitation. We will call his family and the [facility] for further collateral information. The patient is known to me from an admission in September of this year and this seems to be his baseline. Continue inpatient management. Continued Medication Management: Continue Outpt Medication Medications: Current Medications Acetaminophen (Tylenol Tab*) 650 mg PO Q4H PRN PRN Reason: PAIN or TEMP > 101 F Last Admin: 04/17/17 10:23 Dose: 650 mg Al Hydrox/Mg Hydrox/Simethicone (Maalox Plus*) 30 ml PO Q4H PRN PRN Reason: INDIGESTION Carbidopa/Levodopa (Sinemet 25/100 Tab(*)) 0.5 tab PO TID SRINIVAS Cholecalciferol (Vitamin D Tab*) 1,000 units PO DAILY SRIN[facility] Last Admin: 04/17/17 07:28 Dose: 1,000 units Clonazepam (Klonopin Tab(*)) 1 mg PO BEDTIME SRINIVAS Last Admin: 04/16/17 21:43 Dose: 1 mg Divalproex Sodium (Depakote Er Tab(*)) 2,000 mg PO BEDTIME SRINIVAS Last Admin: 04/16/17 21:44 Dose: 2,000 mg Multivitamins (Theragran Tab*) 1 tab PO DAILY SRINIVAS Last Admin: 04/17/17 07:28 Dose: 1 tab Naproxen (Naprosyn Tab*) 375 mg PO BID SRINIVAS Last Admin: 04/17/17 07:27 Dose: 375 mg Nicotine Polacrilex (Nicotine Gum*) 2 mg PO Q2H PRN PRN Reason: CRAVING Last Admin: 04/16/17 21:44 Dose: 2 mg Terazosin HCl (Hytrin Cap*) 2 mg PO BEDTIME SRINIVAS Last Admin: 04/16/17 21:50 Dose: 2 mg - Discharge Plan Discharge Plan: Inpatient Hospitalization
[2017-04-17] MEDS: Carbidopa/Levodop 25/100 MG TAB(*) PO SCH ×2 (11:39→16:54)
--- NOTE | 2017-04-17 14:58 | PN ---
[facility]: Group Therapy Note - Service Type Service Type: 36792 Group Psychotherapy - Cognitive Behavioral Group Therapy ( CBT):Patient presented in CBT programming as disorganized and disruptive in discussion and needed repeated redirection to attend to presented materials.
[2017-04-17] MEDS: Nicotine GUM* 2 MG PO PRN (20:51)
[2017-04-17] MEDS: Terazosin CAP* 1 MG PO SCH (20:51)
[2017-04-17] MEDS: QUEtiapine TAB* 100 MG PO SCH (20:54)
[2017-04-17] MEDS: Divalproex ER TAB(*) 500 MG PO SCH (20:54)
[2017-04-17] MEDS: clonazePAM TAB(*) 1 MG PO SCH ×2 (22:19→23:44)
[2017-04-18] MEDS: Acetaminophen TAB* 325 MG PO PRN ×2 (02:55→09:50)
[2017-04-18] MEDS: Vitamin THERAPEUTIC TAB PO SCH (07:17)
[2017-04-18] MEDS: Naproxen TAB* 375 MG PO SCH ×2 (07:17→21:22)
[2017-04-18] MEDS: Cholecalciferol TAB* 1000 UNITS PO SCH (07:17)
[2017-04-18] MEDS: Carbidopa/Levodop 25/100 MG TAB(*) PO SCH ×2 (07:18→12:24)
[2017-04-18 07:24] LABS: HDL Cholesterol 62.3 mg/dL
--- NOTE | 2017-04-18 12:41 | PN ---
Subjective - Subjective Service Type: 76577 Hosp care 15 min low complexity Subjective: Jacinto has had a hard day, has been intrusive, tearful and emotionally labile. Staff notes that his behavior is markedly worse since resumption of Sinemet therapy yesterday for movement disorder. I was able to speak with the neurologist, Dr. Rasmussen, who evaluated Jacinto this morning and approved the discontinuation of Sinemet. Dr. Rasmussen was supportive of the rationale to use quetiapine for additional mood/behavior stabilization, as this would have presumably lower movement effects than other neuroleptics. Jacinto is OK with this , but requests use of a weighted Occupational Therapy glove during mealtimes to steady his had while eating. He continues to deny SI or HI and is willing to meet with [facility] staff on Sunday to discuss their concerns about his recent behaviors. Objective - Appearance Appearance: Obese Dysmorphic Features: No Hygiene: Dirty Grooming: Disheveled - Behavior Psychomotor Activities: Abnormal-Increased Exhibits Abnormal Movement: Yes - Attitude and Relatedness Attitude and Relatedness: Cooperative Eye Contact: Fair - Speech Quality: Unpressured Latencies: Normal Quantity: Copious - Mood Patient's Decription of Mood: "Good" - Affect Observed Affect: Labile Affect Consistent with: Dysphoria - Thought Process Patient's Thought Process: Tangential Thought Content: No Passive Wish, No Suicidal Planning, No Homicidal Ideation, No Paranoid Ideation - Sensorium Experiencing Hallucinations: No, Sensorium is Clear Type of Hallucinations: Visual: No, Auditory: No, Command: No - Level of Consciousness Level of Consciousness: Alert Orientation: Yes Intact, Yes Orientated to Time, Yes Orientated to Place, Yes Orientated to Person - Impulse Control Impulse Control: Tenuous - Insight and Judgement Insight and Judgement: Fair - Group Participation Particating in Group Activities: Yes - Medication Management Medication Management Adherence: Yes Assessment - Assessment Merits Inpatient Hospitalization: For Immediate Safety, For Stabilization Inpatient DSM-IV Dx: Bipolar DO, NOS Clinical Impression: 61 y.o. single, white male [employer] with a history of bipolar disorder , brought in by ambulance on 9. status secondary to agitated behavior at the [facility] in [place], [place]. Plan - Plan Treatment Plan: Name: JACINTO LANDRY Birthdate: 1955 [id number] We have resumed all outpatient medications, including Depakote ER, clonazepam, naproxyn and Vitamin D. Since resuming Sinemet yesterday, his behavior has noticeably worsened. We have consulted with neurology, and Dr. Rasmussen agrees that discontinuation of Sinemet is warranted. Jacinto can follow up with neurology on an outpatient basis to address his movement concerns. In the meantime, we have started a trial of quetiapine 100mg PO qhs and will see if this improves his behavior without exacerbating tremor. Will meet with Asher Hilton early next week to set ground rules for patient's behavior if accepted back to that placement. Continue inpatient management. Continued Medication Management: Different Medication Medications: Current Medications Acetaminophen (Tylenol Tab*) 650 mg PO Q4H PRN PRN Reason: PAIN or TEMP > 101 F Last Admin: 04/18/17 09:50 Dose: 650 mg Al Hydrox/Mg Hydrox/Simethicone (Maalox Plus*) 30 ml PO Q4H PRN PRN Reason: INDIGESTION Cholecalciferol (Vitamin D Tab*) 1,000 units PO DAILY SRIN[facility]AS Last Admin: 04/18/17 07:17 Dose: 1,000 units Clonazepam (Klonopin Tab(*)) 1 mg PO BEDTIME SRINIVAS Last Admin: 04/17/17 23:44 Dose: 1 mg Divalproex Sodium (Depakote Er Tab(*)) 2,000 mg PO BEDTIME SRINIVAS Last Admin: 04/17/17 20:54 Dose: 2,000 mg Multivitamins (Theragran Tab*) 1 tab PO DAILY SRINIVAS Last Admin: 04/18/17 07:17 Dose: 1 tab Naproxen (Naprosyn Tab*) 375 mg PO BID SRINIVAS Last Admin: 04/18/17 07:17 Dose: 375 mg Nicotine Polacrilex (Nicotine Gum*) 2 mg PO Q2H PRN PRN Reason: CRAVING Last Admin: 04/17/17 20:51 Dose: 2 mg Quetiapine Fumarate (Seroquel Tab*) 100 mg PO BEDTIME SRINIVAS Last Admin: 04/17/17 20:54 Dose: 100 mg Terazosin HCl (Hytrin Cap*) 2 mg PO BEDTIME SRINIVAS Last Admin: 04/17/17 20:51 Dose: 2 mg - Discharge Plan Discharge Plan: Inpatient Hospitalization Lab Results - Lab Results Lab Results: 04/18/17 04/18/17 06:42 06:43 Hemoglobin A1c 5.1 Triglycerides 183 Cholesterol 166 LDL Cholesterol 67 HDL Cholesterol 62.3
--- NOTE | 2017-04-18 16:27 | CONS ---
CONSULTATION NOTE: DATE OF CONSULT: 04/18/17 LOCATION: He is currently in the inpatient psychiatric unit. HISTORY OF PRESENT ILLNESS: Mr. Gill is a very nice 61-year-old gentleman who I know from a prior admission to the hospital. I saw him when he was hospitalized back in December of 2016. At that time, he was known to have a history of bipolar and had been treated with various medications in the past, was on Depakote at the time that I saw him last and also had been treated with Prolixin and Zyprexa it appears in the past. He lives in a intermediate and at the time that I last saw him, he vas having upper extremity tremor that looked parkinsonian in suture. There was some concern that this could be related to his underlying medication, but based on his symptoms, we tried him on some low- dose Sinemet. Remarkably, he did very well. The question remained whether or not this was Parkinson's induced by medication or primary Parkinson's disease. I have seen him several times in clinic in late December and then again in January with plans to follow him regularly. The last time I saw him in January, he was doing very well. He stated that he was eating well, he was tolerating his medications, was gaining weight. He had no hallucinations. His behavior was apparently under good control and at that point, he had been increased to Sinemet 25/100 one pill three times a day. He was having no more problems walking, no falls and he felt that his depression was under control. On the of this month, he was admitted back into the inpatient psych unit for behavioral changes. He had previously been admitted into the inpatient psych unit back in August of 2016. On admission to the ER, he was apparently noting that he had been "in communication with God." Ammonia was noted to be elevated and there was some evidence that he might have a urinary tract infection. He was having some disorganized thoughts and psychosis. He was admitted under similar circumstances in August of this year, but stabilized. It was felt that since starting the Sinemet, it may have worsened his underlying psychiatric issues and so it was also noted that he was having some auditory and visual hallucinations. Apparently, he did not receive some Sinemet and did better and his Sinemet was initially held in the inpatient psychiatric unit. I spoke with Dr. Reyna, who reports that his symptoms did improve, his behavior became more controlled, although he noted that he was having more trouble swallowing and became frustrated that he was no longer on the Sinemet, he wanted to be on that medication. The medication was restarted yesterday at low dose of 0.5 mg p.o. t.i.d., and apparently the staff noted today that his behavior is worsened again. When I saw him today, he was in a group meeting, they pulled him out and he was very pleasant. He was agreeable to the fact that the Sinemet may be causing some of his symptoms. At the time that I saw him, he was alert and oriented x3, but he seemed to have poor insight into his condition. I explained that sometimes when we treat Parkinson's with Sinemet that can worsen underlying psychiatric illness and that there may be a medication that is more beneficial, but at this time I felt that it might be better for him to be off of Parkinson's medications for a few weeks until he can be more stabilized. I can see him as an outpatient and we can try another medication and he seemed agreeable to that as well. He was also started on a low- dose Seroquel last night, although it is unclear whether this has had any effect on his symptoms. PAST MEDICAL HISTORY: As noted above. 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 MEDICATIONS: Current medications include: 1. Tylenol. 2. Maalox. 3. Carbidopa/levodopa 25/100 0.5 mg tablet p.o. t.i.d. 4. Vitamin D. 5. Klonopin 1 mg p.o. at bedtime. 6. Depakote 2000 mg p.o. daily at bedtime. 7. Theragran tab. 8. Naprosyn. 9. Nicotine gum. 10. Seroquel 100 mg at bedtime. 11. Hytrin 2 mg p.o. at bedtime. Prior psychiatric medications include: 1. Klonopin. 2. Prolixin. 3. Benadryl. ALLERGIES: He has no known drug allergies. FAMILY HISTORY: Unknown. SOCIAL HISTORY: He notes tobacco use a pack a day for at least 20 years, rare alcohol and marijuana use. REVIEW OF SYSTEMS: A 14-organ systems as noted above, otherwise negative. PHYSICAL EXAMINATION: Vital Signs: Afebrile, pulse rate of 73, respiratory rate of 18, pulse ox is 95%, blood pressure 126/71. In general, he is a well- nourished, well-developed, although somewhat disheveled gentleman, in no acute distress. He is sitting at the table, talking to me pleasantly. HEENT: He is normocephalic, atraumatic. Sclerae are anicteric. Mucous membranes are moist. Oropharynx is clear. Nares are patent. Neck is supple. No thyromegaly. No carotid bruits. Chest: Clear to auscultation bilaterally. Cardiovascular: Regular rate and rhythm. Abdomen: Nontender, obese. Extremities: No clubbing , cyanosis, or edema. Neurologic Exam: He is awake, alert. He is oriented x3. His speech is fluent. There is no dysarthria. His repetition is intact. Recall of recent and remote events is intact, but he does have some poor insight into his current condition. His thoughts at time were slightly disorganized and at times tangential. He is able to express himself completely and fully and does understand that the medications may be causing some of his symptoms. On the other hand, he notes that he is not currently having any psychiatric symptoms. Cranial Nerves: Pupils are equally round and reactive to light and accommodation. Extraocular muscles are intact. Visual jaramillo are full. Face is symmetric. Sensation is intact. His hearing is intact bilaterally. Tongue is midline. Palate raises symmetrically. His motor exam, spontaneously moving all extremities antigravity 5/5 throughout. He does have some resting tremor in the right greater than left upper extremity. Tone is slightly increased with distraction in the right upper extremity with some mild cogwheeling. His sensation is grossly intact to light touch and pinprick in the upper and lower extremities. [id number] and rapid alternating movements are intact without any noticeable intention tremor. There is no postural tremor noted. DTRs are symmetric in the upper and lower extremities. Gait is slightly wide based, diminished arm swing. No significant shuffle. DIAGNOSTIC STUDIES/LAB DATA: Lab work includes on admission, CBC with diff that was essentially normal. A chemistry on admission with a sodium of 132, chloride of 98, glucose of 104, ammonia of 74, TSH is 1.90. His triglycerides 183, cholesterol 166, LDL of 67, HDL of 62.3. Hemoglobin A1c of 5.1. Urine showed evidence of mild UTI. Valproic acid level was 77. Serum alcohol was less than 10. ASSESSMENT AND PLAN: Mr. Gill is a 61-year-old gentleman with a history of bipolar disease, severe in nature, has been on multiple medications, most recently has been treated with valproic acid, Klonopin and has done fairly well when I saw him initially in the hospital back in December. He was having Parkinsonian symptoms and the concern at that point was whether he had primary Parkinson's versus Parkinson's symptoms induced by medication. He had been on Prolixin prior to that. He was unclear about other medications. My concern at that point was that this may be primary Parkinson's with overlying bipolar disease. My sense was that this was not medication induced Parkinson's, but especially given the fact that he responded well to Sinemet, which is not often seen in medication-induced Parkinson's or secondary Parkinson's. With as said, we continued his Sinemet as an outpatient and increased his dose to 1 mg p.o. t.i.d. with good results from a Parkinson's standpoint. He stated that he felt better than ever. He felt like he had more energy. He was moving more. His tremors were less. He was eating better and not having any trouble swallowing. Unfortunately, he has had a decline in his mental status and psychiatric symptoms and the concern is that the Sinemet might be worsening his symptoms. I think there are several things that we can do as an outpatient: 1. I will plan to get a IGNACIO scan if possible as an outpatient which can help differeniate between primary and secondary PD. Unfortunately, he will have to travel to [place] or [place], but this could help guide management in the future 2. There are two ways we can treat his current symptoms, A. Stop the Sinemet and see if his psychiatric symptoms improve. Apparently, this was done for a day or two and he did improve which leads me to believe that the Sinemet may be worsening his psychiatric symptoms. I did explain this to him. I told him that we could stop the medication and I could see him back in my clinic in several weeks, at which point we could try another medication possibly one of the agonist versus amantadine and see if we could titrate up very slowly without worsening any psychiatric symptoms. B. Continue the Sinemet at low dose and continue the Seroquel, titrating up as necessary. Seroquel, of all of the antipsychotic medications, typically has the least effect on PD and EPS. At this point, I spoke with Dr. Reyna and I think the plan is to stop his Sinemet and to let him stabilize from a psychiatric standpoint. I will plan to see him back in several weeks and we will consider alternative therapies. I would not add any new medications at this point and would continue with his current treatment plan otherwise. On discharge, please set up a follow up appointment with my office in 4 to 6 weeks. I will sign off for now. Please feel free to call me with any new concerns or issues. I can be reached at: . Thank you for the opportunity to participate in his care. [id number]/[facility] #: [id number] KHALIDA
[2017-04-18] MEDS: Divalproex ER TAB(*) 500 MG PO SCH (21:20)
[2017-04-18] MEDS: QUEtiapine TAB* 100 MG PO SCH (21:21)
[2017-04-18] MEDS: Terazosin CAP* 1 MG PO SCH (21:22)
[2017-04-18] MEDS: clonazePAM TAB(*) 1 MG PO SCH (21:22)
[2017-04-19] MEDS: Vitamin THERAPEUTIC TAB PO SCH (09:30)
[2017-04-19] MEDS: Cholecalciferol TAB* 1000 UNITS PO SCH (09:30)
[2017-04-19] MEDS: Naproxen TAB* 375 MG PO SCH ×2 (09:30→20:20)
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
[2017-04-19] MEDS: Nicotine GUM* 2 MG PO PRN ×2 (13:10→18:56)
[2017-04-19] MEDS: Acetaminophen TAB* 325 MG PO PRN ×2 (13:10→18:56)
[2017-04-19] MEDS: Divalproex ER TAB(*) 500 MG PO SCH (20:19)
[2017-04-19] MEDS: Terazosin CAP* 1 MG PO SCH (20:19)
[2017-04-19] MEDS: QUEtiapine TAB* 100 MG PO SCH (20:20)
[2017-04-19] MEDS: clonazePAM TAB(*) 1 MG PO SCH (21:58)
[2017-04-20] MEDS: Acetaminophen TAB* 325 MG PO PRN ×2 (02:44→12:45)
[2017-04-20] MEDS: Nicotine GUM* 2 MG PO PRN (02:44)
[2017-04-20] MEDS: Naproxen TAB* 375 MG PO SCH ×2 (09:44→21:34)
[2017-04-20] MEDS: Cholecalciferol TAB* 1000 UNITS PO SCH (09:44)
[2017-04-20] MEDS: Vitamin THERAPEUTIC TAB PO SCH (09:44)
[2017-04-20] MEDS: Divalproex ER TAB(*) 500 MG PO SCH (21:33)
[2017-04-20] MEDS: Terazosin CAP* 1 MG PO SCH (21:34)
[2017-04-20] MEDS: QUEtiapine TAB* 100 MG PO SCH (21:35)
[2017-04-20] MEDS: clonazePAM TAB(*) 1 MG PO SCH (21:35)
[2017-04-21] MEDS: Acetaminophen TAB* 325 MG PO PRN ×2 (06:05→12:17)
[2017-04-21] MEDS: Vitamin THERAPEUTIC TAB PO SCH (07:52)
[2017-04-21] MEDS: Cholecalciferol TAB* 1000 UNITS PO SCH (07:52)
[2017-04-21] MEDS: Naproxen TAB* 375 MG PO SCH ×2 (07:52→21:52)
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
[2017-04-21] MEDS: Divalproex ER TAB(*) 500 MG PO SCH (21:50)
[2017-04-21] MEDS: clonazePAM TAB(*) 1 MG PO SCH (21:50)
[2017-04-21] MEDS: QUEtiapine TAB* 100 MG PO SCH (21:51)
[2017-04-21] MEDS: Terazosin CAP* 1 MG PO SCH (21:51)
[2017-04-22] MEDS: Vitamin THERAPEUTIC TAB PO SCH (08:18)
[2017-04-22] MEDS: Cholecalciferol TAB* 1000 UNITS PO SCH (08:19)
[2017-04-22] MEDS: Naproxen TAB* 375 MG PO SCH ×2 (08:19→21:08)
[2017-04-22] MEDS: Acetaminophen TAB* 325 MG PO PRN (10:39)
[2017-04-22] MEDS: Divalproex ER TAB(*) 500 MG PO SCH (21:06)
[2017-04-22] MEDS: Terazosin CAP* 1 MG PO SCH (21:07)
[2017-04-22] MEDS: QUEtiapine TAB* 100 MG PO SCH (21:07)
[2017-04-22] MEDS: clonazePAM TAB(*) 1 MG PO SCH (21:07)
[2017-04-22] MEDS: Nicotine GUM* 2 MG PO PRN (21:12)
[2017-04-23] MEDS: Acetaminophen TAB* 325 MG PO PRN ×3 (05:50→19:04)
[2017-04-23] MEDS: Naproxen TAB* 375 MG PO SCH ×2 (08:32→20:03)
[2017-04-23] MEDS: Cholecalciferol TAB* 1000 UNITS PO SCH (08:32)
[2017-04-23] MEDS: Vitamin THERAPEUTIC TAB PO SCH (08:32)
--- NOTE | 2017-04-23 13:59 | PN ---
Subjective - Subjective Service Type: [id number] Hosp care 15 min low complexity Subjective: Jacinto continues to show evidence of mood lability, tearfulness at times and inability to get along with certain peers. He is tolerating meds well, although he continues to have tremulous movements of his upper extremities. Jacinto denies SI or HI. We have not heard recently from [facility] but are awaiting a discharge planning meeting with them early this week. Objective - Appearance Appearance: Obese Dysmorphic Features: No Hygiene: Dirty Grooming: Disheveled - Behavior Psychomotor Activities: Abnormal-Increased Exhibits Abnormal Movement: Yes - Attitude and Relatedness Attitude and Relatedness: Cooperative Eye Contact: Fair - Speech Quality: Pressured Latencies: Short Quantity: Copious - Mood Patient's Decription of Mood: "Good" - Affect Observed Affect: Labile Affect Consistent with: Dysphoria - Thought Process Patient's Thought Process: Tangential Thought Content: No Passive Wish, No Suicidal Planning, No Homicidal Ideation, No Paranoid Ideation - Sensorium Experiencing Hallucinations: No, Sensorium is Clear Type of Hallucinations: Visual: No, Auditory: No, Command: No - Level of Consciousness Level of Consciousness: Alert Orientation: Yes Intact, Yes Orientated to Time, Yes Orientated to Place, Yes Orientated to Person - Impulse Control Impulse Control: Poor - Insight and Judgement Insight and Judgement: Impaired - Group Participation Particating in Group Activities: No - Medication Management Medication Management Adherence: Yes Assessment - Assessment Merits Inpatient Hospitalization: For Immediate Safety, For Stabilization Inpatient DSM-IV Dx: Bipolar DO, NOS Clinical Impression: 61 y.o. single, white male [employer] with a history of bipolar disorder , brought in by ambulance on status secondary to agitated behavior at the [facility] in [place], [place]. Plan - Plan Treatment Plan: Name: JACINTO LANDRY Birthdate: 1955 [id number] We will increase quetiapine from 200 to 300mg nightly. He is also on his outpatient regimen of Depakote ER, clonazepam, naproxyn and Vitamin D, while we have discontinued Sinemet per Neurology consult. Jacinto can follow up with neurologist, Dr. Rasmussen on an outpatient basis to address his movement concerns after discharge. Will await a meeting with [facility] early next week to set ground rules for the patient's behavior if accepted back to that placement. Continue inpatient management. Continued Medication Management: Different Medication Medications: Current Medications Acetaminophen (Tylenol Tab*) 650 mg PO Q4H PRN PRN Reason: PAIN or TEMP > 101 F Last Admin: 04/23/17 13:34 Dose: 650 mg Al Hydrox/Mg Hydrox/Simethicone (Maalox Plus*) 30 ml PO Q4H PRN PRN Reason: INDIGESTION Cholecalciferol (Vitamin D Tab*) 1,000 units PO DAILY SRINIVAS Last Admin: 04/23/17 08:32 Dose: 1,000 units Clonazepam (Klonopin Tab(*)) 1 mg PO BEDTIME SRINIVAS Last Admin: 04/22/17 21:07 Dose: 1 mg Divalproex Sodium (Depakote Er Tab(*)) 2,000 mg PO BEDTIME SRINIVAS Last Admin: 04/22/17 21:06 Dose: 2,000 mg Multivitamins (Theragran Tab*) 1 tab PO DAILY SRINIVAS Last Admin: 04/23/17 08:32 Dose: 1 tab Naproxen (Naprosyn Tab*) 375 mg PO BID SRINIVAS Last Admin: 04/23/17 08:32 Dose: 375 mg Nicotine Polacrilex (Nicotine Gum*) 2 mg PO Q2H PRN PRN Reason: CRAVING Last Admin: 04/22/17 21:12 Dose: 2 mg Quetiapine Fumarate (Seroquel Tab*) 200 mg PO BEDTIME SRINIVAS Last Admin: 04/22/17 21:07 Dose: 200 mg Terazosin HCl (Hytrin Cap*) 2 mg PO BEDTIME SRINIVAS Last Admin: 04/22/17 21:07 Dose: 2 mg - Discharge Plan Discharge Plan: Inpatient Hospitalization
[2017-04-23] MEDS: clonazePAM TAB(*) 1 MG PO SCH (20:02)
[2017-04-23] MEDS: Terazosin CAP* 1 MG PO SCH (20:03)
[2017-04-23] MEDS: Divalproex ER TAB(*) 500 MG PO SCH (20:03)
[2017-04-23] MEDS ORDERED: QUEtiapine TAB* 100 MG PO SCH (21:00)
[2017-04-24] MEDS: Acetaminophen TAB* 325 MG PO PRN ×2 (02:40→13:59)
[2017-04-24] MEDS: Nicotine GUM* 2 MG PO PRN (07:03)
[2017-04-24] MEDS: Vitamin THERAPEUTIC TAB PO SCH (09:05)
[2017-04-24] MEDS: Cholecalciferol TAB* 1000 UNITS PO SCH (09:05)
[2017-04-24] MEDS: Naproxen TAB* 375 MG PO SCH ×2 (09:05→20:28)
--- NOTE | 2017-04-24 12:29 | PN ---
Subjective - Subjective Service Type: [id number] [facility] Subjective: Therapeutic discharge planning meeting held with Jacinto and a staff member at the [facility], Teresa, as well as OBI Guillen. Jacinto was disorganized and hyperreligious during the session, claiming that the devil had made a recent medication change that led to his destabilization and wandering into irrelevant topics from his past and from various peer and family relationships. At times he is loud and upset, at other times tearful and morose. Teresa is able to articulate [facility] concerns that Jacinto will often leave the facility with out notifying them, has made doctors appointments and gotten on new medications without their knowledge, and at times can be very disinhibited. Jacinto had an episode last night in which he fell asleep in the Comfort Room following HS meds and, without his CPAP machine, his O2 sats dropped into the 50's to 70's % range. We mutually agree that he is not ready for discharge at this time, but [facility] is willing to take him home, as soon as later this week if stable. Objective - Appearance Appearance: Obese Dysmorphic Features: No Hygiene: Normal Grooming: Disheveled - Behavior Psychomotor Activities: Abnormal-Increased Exhibits Abnormal Movement: Yes - Attitude and Relatedness Attitude and Relatedness: Needy Eye Contact: Fair - Speech Quality: Pressured Latencies: Short Quantity: Copious - Mood Patient's Decription of Mood: "Fine" - Affect Observed Affect: Labile Affect Consistent with: Dysphoria - Thought Process Patient's Thought Process: Tangential Thought Content: Yes Paranoid Ideation, No Passive Wish, No Suicidal Planning, No Homicidal Ideation - Sensorium Experiencing Hallucinations: No, Sensorium is Clear Type of Hallucinations: Visual: No, Auditory: No, Command: No - Level of Consciousness Level of Consciousness: Alert Orientation: Yes Intact, Yes Orientated to Time, Yes Orientated to Place, Yes Orientated to Person - Impulse Control Impulse Control: Poor - Insight and Judgement Insight and Judgement: Impaired - Group Participation Particating in Group Activities: Yes - Medication Management Medication Management Adherence: Yes Assessment - Assessment Merits Inpatient Hospitalization: For Immediate Safety, For Stabilization Inpatient DSM-IV Dx: Bipolar DO, NOS Clinical Impression: 61 y.o. single, white male [employer] with a history of bipolar disorder , brought in by ambulance on status secondary to agitated behavior at the [facility] in [place], [place]. Plan - Plan Treatment Plan: Name: JACINTO LANDRY SR Birthdate: 1955 [id number] We will increase quetiapine from 300 to 400mg nightly. It's very important that he not be allowed to sleep without his CPAP on. He is also on his outpatient regimen of Depakote ER, clonazepam, naproxyn and Vitamin D, while we have discontinued Sinemet per Neurology consult. Jacinto can follow up with neurologist, Dr. Rasmussen on an outpatient basis to address his movement concerns after discharge. Will target later this week for discharge. Continue inpatient management. Continued Medication Management: Different Medication Medications: Current Medications Acetaminophen (Tylenol Tab*) 650 mg PO Q4H PRN PRN Reason: PAIN or TEMP > 101 F Last Admin: 04/24/17 02:40 Dose: 650 mg Al Hydrox/Mg Hydrox/Simethicone (Maalox Plus*) 30 ml PO Q4H PRN PRN Reason: INDIGESTION Cholecalciferol (Vitamin D Tab*) 1,000 units PO DAILY SRINIVAS Last Admin: 04/24/17 09:05 Dose: 1,000 units Clonazepam (Klonopin Tab(*)) 1 mg PO BEDTIME SRINIVAS Last Admin: 04/23/17 20:02 Dose: 1 mg Divalproex Sodium (Depakote Er Tab(*)) 2,000 mg PO BEDTIME SRINIVAS Last Admin: 04/23/17 20:03 Dose: 2,000 mg Multivitamins (Theragran Tab*) 1 tab PO DAILY SRINIVAS Last Admin: 04/24/17 09:05 Dose: 1 tab Naproxen (Naprosyn Tab*) 375 mg PO BID SRINIVAS Last Admin: 04/24/17 09:05 Dose: 375 mg Nicotine Polacrilex (Nicotine Gum*) 2 mg PO Q2H PRN PRN Reason: CRAVING Last Admin: 04/24/17 07:03 Dose: 2 mg Quetiapine Fumarate (Seroquel Tab*) 400 mg PO BEDTIME SRINIVAS Terazosin HCl (Hytrin Cap*) 2 mg PO BEDTIME SRINIVAS Last Admin: 04/23/17 20:03 Dose: 2 mg - Discharge Plan Discharge Plan: Inpatient Hospitalization
[2017-04-24] MEDS: Terazosin CAP* 1 MG PO SCH (20:27)
[2017-04-24] MEDS: clonazePAM TAB(*) 1 MG PO SCH (20:27)
[2017-04-24] MEDS: QUEtiapine TAB* 100 MG PO SCH (20:28)
[2017-04-24] MEDS: Divalproex ER TAB(*) 500 MG PO SCH (20:29)
[2017-04-25] MEDS: Acetaminophen TAB* 325 MG PO PRN ×3 (05:12→15:52)
[2017-04-25] MEDS: Vitamin THERAPEUTIC TAB PO SCH (09:05)
[2017-04-25] MEDS: Naproxen TAB* 375 MG PO SCH ×2 (09:05→20:04)
[2017-04-25] MEDS: Cholecalciferol TAB* 1000 UNITS PO SCH (09:05)
--- NOTE | 2017-04-25 13:19 | PN ---
Subjective - Subjective Service Type: [id number] Hosp care 15 min low complexity Subjective: Jacinto appears far less labile today and has been participating appropriately in unit programming. He complains of right sided hip pain and requests an xray of this. He denies SI or HI and states his preference to return to live at the [facility] after discharge. Objective - Appearance Appearance: Obese Dysmorphic Features: No Hygiene: Dirty Grooming: Disheveled - Behavior Psychomotor Activities: Abnormal-Increased Exhibits Abnormal Movement: Yes - Attitude and Relatedness Attitude and Relatedness: Cooperative Eye Contact: Fair - Speech Quality: Unpressured Latencies: Normal Quantity: Appropriate - Mood Patient's Decription of Mood: "Great" - Affect Observed Affect: Expansive Affect Consistent with: Euphoria - Thought Process Patient's Thought Process: Tangential Thought Content: No Passive Wish, No Suicidal Planning, No Homicidal Ideation, No Paranoid Ideation - Sensorium Experiencing Hallucinations: No, Sensorium is Clear Type of Hallucinations: Visual: No, Auditory: No, Command: No - Level of Consciousness Level of Consciousness: Alert Orientation: Yes Intact, Yes Orientated to Time, Yes Orientated to Place, Yes Orientated to Person - Impulse Control Impulse Control: Tenuous - Insight and Judgement Insight and Judgement: Fair - Group Participation Particating in Group Activities: Yes - Medication Management Medication Management Adherence: Yes Assessment - Assessment Merits Inpatient Hospitalization: For Immediate Safety, For Stabilization Inpatient DSM-IV Dx: Bipolar DO, NOS Clinical Impression: 61 y.o. single, white male [employer] with a history of bipolar disorder , brought in by ambulance on 9.41 status secondary to agitated behavior at the [facility] in [place], [place]. Plan - Plan Treatment Plan: Name: JACINTO LANDRY Birthdate: 1955 [id number] Patient now on quetiapine 400mg PO qhs. He is also on his outpatient regimen of Depakote ER, clonazepam, naproxyn and Vitamin D, while we have discontinued Sinemet per Neurology consult. Jacinto can follow up with neurologist, Dr. Rasmussen on an outpatient basis to address his movement concerns after discharge. Will target later this week for discharge. Pelvic x-ray per patient's request. Continue inpatient management. Continued Medication Management: Different Medication Medications: Current Medications Acetaminophen (Tylenol Tab*) 650 mg PO Q4H PRN PRN Reason: PAIN or TEMP > 101 F Last Admin: 04/25/17 10:20 Dose: 650 mg Al Hydrox/Mg Hydrox/Simethicone (Maalox Plus*) 30 ml PO Q4H PRN PRN Reason: INDIGESTION Cholecalciferol (Vitamin D Tab*) 1,000 units PO DAILY SRINIVAS Last Admin: 04/25/17 09:05 Dose: 1,000 units Clonazepam (Klonopin Tab(*)) 1 mg PO BEDTIME SRINIVAS Last Admin: 04/24/17 20:27 Dose: 1 mg Divalproex Sodium (Depakote Er Tab(*)) 2,000 mg PO BEDTIME SRINIVAS Last Admin: 04/24/17 20:29 Dose: 2,000 mg Multivitamins (Theragran Tab*) 1 tab PO DAILY SRINIVAS Last Admin: 04/25/17 09:05 Dose: 1 tab Naproxen (Naprosyn Tab*) 375 mg PO BID SRINIVAS Last Admin: 04/25/17 09:05 Dose: 375 mg Nicotine Polacrilex (Nicotine Gum*) 2 mg PO Q2H PRN PRN Reason: CRAVING Last Admin: 04/24/17 07:03 Dose: 2 mg Quetiapine Fumarate (Seroquel Tab*) 400 mg PO BEDTIME SRINIVAS Last Admin: 04/24/17 20:28 Dose: 400 mg Terazosin HCl (Hytrin Cap*) 2 mg PO BEDTIME SRINIVAS Last Admin: 04/24/17 20:27 Dose: 2 mg - Discharge Plan Discharge Plan: Inpatient Hospitalization
--- NOTE | 2017-04-25 15:12 | RAD ---
INDICATION: Left hip pain COMPARISON: None TECHNIQUE: An AP view of the pelvis and AP views of the hip in neutral and abducted position were obtained FINDINGS: Bones: There are no acute bony findings. Joint spaces: The hips articulate normally. The joint spaces are preserved. SI joints/symphysis: The SI joints and symphysis are intact. Other: None IMPRESSION: NO ACUTE BONY FINDINGS.
[2017-04-25] MEDS: Terazosin CAP* 1 MG PO SCH (20:03)
[2017-04-25] MEDS: clonazePAM TAB(*) 1 MG PO SCH (20:03)
[2017-04-25] MEDS: Divalproex ER TAB(*) 500 MG PO SCH (20:03)
[2017-04-26] MEDS: Acetaminophen TAB* 325 MG PO PRN ×2 (00:30→10:21)
[2017-04-26] MEDS: QUEtiapine TAB* 100 MG PO SCH ×2 (00:30→20:14)
[2017-04-26] MEDS: Cholecalciferol TAB* 1000 UNITS PO SCH (09:16)
[2017-04-26] MEDS: Naproxen TAB* 375 MG PO SCH ×2 (09:16→20:14)
[2017-04-26] MEDS: Vitamin THERAPEUTIC TAB PO SCH (09:16)
[2017-04-26] MEDS: Nicotine GUM* 2 MG PO PRN ×2 (10:21→12:41)
[2017-04-26] MEDS ORDERED: Furosemide TAB* 40 MG ONE (12:16)
--- NOTE | 2017-04-26 12:37 | PN ---
Subjective - Subjective Service Type: 53884 Family Medical Psyc Subjective: Jacinto is seen for family meeting with his brother, Ashkan Gill, and OBI Guillen. Ashkan has several concerns related to Jacinto's physical and financial well-being. He brings up Jacinto's tendencies to give money to people who take advantage of his generosity, his use of cannabis, and the concern among family that Jacinto is not getting enough structure and supervision in the community. In response, Jacinto becomes irritated and raises his voice at times, but keeps the conversation civil. The upshot of the meeting is that the following recommendations will be made: Jacinto will return to the [facility], where he is obviously well-liked, he will be referred to APS in [facility], his outpatient medical and psychiatric care will be transferred to the [facility] clinic in [place], [place], he will follow up with Dr. Rasmussen at the Neurology clinic for his movement issues and he is to immediately stop smoking cannabis. Jacinto agrees with these recommendations and denies SI or HI. He requests resumption of lasix therapy for ankle edema. Objective - Appearance Appearance: Obese Dysmorphic Features: No Hygiene: Normal Grooming: Fairly Well Kept - Behavior Psychomotor Activities: Abnormal-Increased Exhibits Abnormal Movement: Yes - Attitude and Relatedness Attitude and Relatedness: Cooperative Eye Contact: Fair - Speech Quality: Unpressured Latencies: Normal Quantity: Appropriate - Mood Patient's Decription of Mood: "Good" - Affect Observed Affect: Fair Affect Consistent with: Euthymia - Thought Process Patient's Thought Process: Coherent Thought Content: No Passive Wish, No Suicidal Planning, No Homicidal Ideation, No Paranoid Ideation - Sensorium Experiencing Hallucinations: No, Sensorium is Clear Type of Hallucinations: Visual: No, Auditory: No, Command: No - Level of Consciousness Level of Consciousness: Alert Orientation: Yes Intact, Yes Orientated to Time, Yes Orientated to Place, Yes Orientated to Person - Impulse Control Impulse Control: Tenuous - Insight and Judgement Insight and Judgement: Fair - Group Participation Particating in Group Activities: Yes - Medication Management Medication Management Adherence: Yes Assessment - Assessment Merits Inpatient Hospitalization: Consolidate Improvements, Pending Safe DC Plan Inpatient DSM-IV Dx: Bipolar DO, NOS Clinical Impression: 61 y.o. single, white male [employer] with a history of bipolar disorder , brought in by ambulance on status secondary to agitated behavior at the [facility] in [place], [place]. Plan - Plan Treatment Plan: Name: JACINTO GILL SR Birthdate: 1955 [id number] Patient appears to be at his behavioral baseline, which is admittedly fairly low functioning. He is now on quetiapine 400mg PO qhs, as well as his outpatient regimen of Depakote ER, clonazepam, naproxyn and Vitamin D, while we have discontinued Sinemet per Neurology consult. Jacinto can follow up with neurologist, Dr. Rasmussen on an outpatient basis to address his movement concerns after discharge. Will target later this week for discharge. Pelvic x-ray was negative for fracture. Discharge to [facility] tomorrow, (04/27). Continued Medication Management: Different Medication Medications: Current Medications Acetaminophen (Tylenol Tab*) 650 mg PO Q4H PRN PRN Reason: PAIN or TEMP > 101 F Last Admin: 04/26/17 10:21 Dose: 650 mg Al Hydrox/Mg Hydrox/Simethicone (Maalox Plus*) 30 ml PO Q4H PRN PRN Reason: INDIGESTION Cholecalciferol (Vitamin D Tab*) 1,000 units PO DAILY SRINIVAS Last Admin: 04/26/17 09:16 Dose: 1,000 units Clonazepam (Klonopin Tab(*)) 1 mg PO BEDTIME SRINIVAS Last Admin: 04/25/17 20:03 Dose: 1 mg Divalproex Sodium (Depakote Er Tab(*)) 2,000 mg PO BEDTIME SRINIVAS Last Admin: 04/25/17 20:03 Dose: 2,000 mg Multivitamins (Theragran Tab*) 1 tab PO DAILY SRINIVAS Last Admin: 04/26/17 09:16 Dose: 1 tab Naproxen (Naprosyn Tab*) 375 mg PO BID SRINIVAS Last Admin: 04/26/17 09:16 Dose: 375 mg Nicotine Polacrilex (Nicotine Gum*) 2 mg PO Q2H PRN PRN Reason: CRAVING Last Admin: 04/26/17 10:21 Dose: 2 mg Quetiapine Fumarate (Seroquel Tab*) 400 mg PO BEDTIME SRINIVAS Last Admin: 04/26/17 00:30 Dose: 400 mg Terazosin HCl (Hytrin Cap*) 2 mg PO BEDTIME SRINIVAS Last Admin: 04/25/17 20:03 Dose: 2 mg - Discharge Plan Discharge Plan: Outpatient Follow Up Outpatient Program: [facility]
[2017-04-26] MEDS: Furosemide TAB* 40 MG PO SCH (13:14)
[2017-04-26] MEDS: Magnesium Hydroxide LIQ* 30 ML UDC PO PRN ×2 (14:06→20:11)
[2017-04-26] MEDS: Divalproex ER TAB(*) 500 MG PO SCH (20:14)
[2017-04-26] MEDS: Terazosin CAP* 1 MG PO SCH (20:14)
[2017-04-26] MEDS: clonazePAM TAB(*) 1 MG PO SCH (20:14)
[2017-04-27] MEDS: QUEtiapine TAB* 100 MG PO SCH (00:05)
[2017-04-27] MEDS: Cholecalciferol TAB* 1000 UNITS PO SCH (08:21)
[2017-04-27] MEDS: Naproxen TAB* 375 MG PO SCH (08:21)
[2017-04-27] MEDS: Furosemide TAB* 40 MG PO SCH (08:21)
[2017-04-27] MEDS: Vitamin THERAPEUTIC TAB PO SCH (08:21)
[2017-04-27] MEDS: Nicotine GUM* 2 MG PO PRN (08:22)
[2017-04-27 08:41] VITALS: BP 136/81
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
== END 2017-04-27 14:40 | disposition home or self-care (01) | DRG 885 ==
LOC: ED 19:49 → BSU 04-15 14:33
PROVIDERS: ADMIT Psychiatry & Neurology Psychiatry; ATTEND Psychiatry & Neurology Psychiatry
PROC: GZHZZZZ Group Psychotherapy (ICD-10-PCS; principal; 2017-04-17)
DX: F31.13 Bipolar disorder, current episode manic without psychotic features, severe (principal); G20 Parkinson's disease; E66.9 Obesity, unspecified; F12.90 Cannabis use, unspecified, uncomplicated; G47.30 Sleep apnea, unspecified; I10 Essential (primary) hypertension; F17.210 Nicotine dependence, cigarettes, uncomplicated; Z72.89 Other problems related to lifestyle; Z23 Encounter for immunization; Z68.39 Body mass index [BMI] 39.0-39.9, adult
CPT/HCPCS: 36415; 80053; 80061; 80164; 80320; 80329; 81003; 81015; 82140; 83036; 84443; 85025; 87086; 90686; 90847; 90853; 94660; 99222; 99231; 99238; A9270-GY; G0480

== ENCOUNTER 2017-05-05 21:13 | Inpatient (IN) | payer MEDICARE ==
[2017-05-05 23:01] LABS: Hematocrit 48 % (42-52); Hemoglobin 16.6 g/dl (14.0-18.0); Mean Corpuscular HGB Conc 35 g/dl (31-36); Mean Corpuscular Hemoglobin 32 pg (27-31); Mean Corpuscular Volume 92 fL (80-94); Mean Platelet Volume 9 um3 (7.4-10.4); Red Blood Count 5.23 10^6/ul (4.0-5.4); Red Cell Distribution Width 13 % (10.5-15); White Blood Count 8.9 10^3/ul (3.5-10.8)
[2017-05-05 23:10] LABS: ALT 18 U/L (7-52); AST 15 U/L (13-39); Alkaline Phosphatase 54 U/L (34-104); Anion Gap 7 mmol/L (2-11); BUN/Creatinine Ratio 18.2 (8-20); Blood Urea Nitrogen 16 mg/dL (6-24); CO2 Carbon Dioxide 27 mmol/L (22-32); Calcium 9.6 mg/dL (8.6-10.3); Chloride 101 mmol/L (101-111); EGFR African American 113.2 (>60); Glucose 137 mg/dL (70-100); Potassium 3.9 mmol/L (3.5-5.0); Sodium 135 mmol/L (133-145)
[2017-05-05 23:23] LABS: Acetaminophen < 15 mcg/mL; Alcohol < 10 mg/dL (<10); Salicylate < 2.50 mg/dL (<30)
[2017-05-06 02:27] LABS: Magnesium 2.1 mg/dL (1.9-2.7)
[2017-05-06 03:39] LABS: Urine Bilirubin Negative (Negative); Urine Glucose Negative (Negative); Urine Nitrite Negative (Negative)
[2017-05-06 03:51] LABS: Benzodiazepine Urine Screen None Detected (None Detect)
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
[2017-05-06] MEDS ORDERED: Naproxen TAB* 250 MG PO ONE (09:34)
[2017-05-06] MEDS ORDERED: Al Hydrox/Mg Hydrox/Simet LIQ* 30 ML UDC PO PRN (18:46)
[2017-05-06] MEDS ORDERED: Nicotine GUM* 2 MG PO PRN (18:46)
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
[2017-05-06] MEDS: Divalproex ER TAB(*) 500 MG PO SCH (21:07)
[2017-05-06] MEDS: QUEtiapine TAB* 100 MG PO SCH (21:08)
[2017-05-06] MEDS: Terazosin CAP* 1 MG PO SCH (21:08)
[2017-05-06] MEDS: Naproxen TAB* 375 MG PO SCH (21:09)
[2017-05-06] MEDS: clonazePAM TAB(*) 1 MG PO SCH (21:11)
[2017-05-07] MEDS: Mouth Piece, Nicotine* 1 EACH CARTRIDGE INH SCH (08:58)
[2017-05-07] MEDS ORDERED: Mouth Piece, Nicotine* 1 EACH CARTRIDGE ONE (08:58)
[2017-05-07] MEDS: Cholecalciferol TAB* 1000 UNITS PO SCH (08:59)
[2017-05-07] MEDS: Vitamin THERAPEUTIC TAB PO SCH (08:59)
[2017-05-07] MEDS: Nicotine Inhaler* 10 MG AMP INH PRN (08:59)
[2017-05-07] MEDS: Naproxen TAB* 375 MG PO SCH ×2 (08:59→20:31)
[2017-05-07] MEDS: Furosemide TAB* 40 MG PO SCH (08:59)
--- NOTE | 2017-05-07 15:42 | PN ---
Subjective - Subjective Date of Service: 05/07/17 Service Type: 35016 Hosp care 15 min low complexity Subjective: Jacinto presents with continued thought disorganization. He has very little understanding of the events leading to rehospitalization and is quite dishevelled with numerous containers of food, in various states of consumption, on the table in front of him, along with a bible filled with different colored highlighter markings and an envelope with hypergraphic, barely legible scrawlings. He is meal and med compliant but tends not to go to groups. He denies SI or HI. Objective - Appearance Appearance: Obese Dysmorphic Features: No Hygiene: Dirty Grooming: Disheveled - Behavior Psychomotor Activities: Abnormal-Increased Exhibits Abnormal Movement: No - Attitude and Relatedness Attitude and Relatedness: Psychotically Related Eye Contact: Fair - Speech Quality: Pressured Latencies: Short Quantity: Copious - Mood Patient's Decription of Mood: "Great" - Affect Observed Affect: Expansive Affect Consistent with: Euphoria - Thought Process Patient's Thought Process: Tangential Thought Content: Yes Paranoid Ideation, No Passive Wish, No Suicidal Planning, No Homicidal Ideation - Sensorium Experiencing Hallucinations: No, Sensorium is Clear Type of Hallucinations: Visual: No, Auditory: No, Command: No - Level of Consciousness Level of Consciousness: Alert Orientation: Yes Intact, Yes Orientated to Time, Yes Orientated to Place, Yes Orientated to Person - Impulse Control Impulse Control: Poor - Insight and Judgement Insight and Judgement: Impaired - Group Participation Particating in Group Activities: No - Medication Management Medication Management Adherence: No Assessment - Assessment Merits Inpatient Hospitalization: For Immediate Safety, For Stabilization Inpatient DSM-IV Dx: Bipolar Anastasiia, severe with psychotic features Clinical Impression: 61 y.o. , obese, white male with a history of bipolar disorder, recently discharged from the [facility], now readmitted on an involuntary status due to agitated, disruptive and violent behavior at his family m[facility], the [facility]. Plan - Plan Treatment Plan: Name: JACINTO LANDRY Birthdate: 1955 [id number] We have continued the patient's most recent psychiatric and medical medication regimen, including Depakote, quetiapine and clonazepam. We've added lactulose for elevated ammonia level. Patient would likely benefit from longer-term inpatient services in a [facility] facility. Continued Medication Management: Continue Outpt Medication Medications: Current Medications Acetaminophen (Tylenol Tab*) 650 mg PO Q4H PRN PRN Reason: PAIN or TEMP > 101 F Al Hydrox/Mg Hydrox/Simethicone (Maalox Plus*) 30 ml PO Q4H PRN PRN Reason: INDIGESTION Cholecalciferol (Vitamin D Tab*) 1,000 units PO DAILY SRINIVAS Last Admin: 05/07/17 08:59 Dose: 1,000 units Clonazepam (Klonopin Tab(*)) 1 mg PO BEDTIME SRINIVAS Last Admin: 05/06/17 21:11 Dose: 1 mg Device (Nicotine Mouth Piece*) 1 each INH .CARTRIDGE SRINIVAS Last Admin: 05/07/17 08:58 Dose: 1 each Divalproex Sodium (Depakote Er Tab(*)) 2,000 mg PO BEDTIME SRINIVAS Last Admin: 05/06/17 21:07 Dose: 2,000 mg Furosemide (Lasix Tab*) 40 mg PO DAILY SRINIVAS Last Admin: 05/07/17 08:59 Dose: 40 mg Lactulose (Lactulose*) 30 ml PO BEDTIME SRINIVAS Last Admin: 05/06/17 21:11 Dose: 30 ml Multivitamins (Theragran Tab*) 1 tab PO DAILY SRINIVAS Last Admin: 05/07/17 08:59 Dose: 1 tab Naproxen (Naprosyn Tab*) 375 mg PO BID SRINIVAS Last Admin: 05/07/17 08:59 Dose: 375 mg Nicotine (Nicotine Inhaler*) 10 mg INH Q2H PRN PRN Reason: CRAVING Last Admin: 05/07/17 08:59 Dose: 10 mg Nicotine Polacrilex (Nicotine Gum*) 2 mg PO Q2H PRN PRN Reason: CRAVING Quetiapine Fumarate (Seroquel Tab*) 400 mg PO BEDTIME SRINIVAS Last Admin: 05/06/17 21:08 Dose: 400 mg Terazosin HCl (Hytrin Cap*) 2 mg PO BEDTIME SRINIVAS Last Admin: 05/06/17 21:08 Dose: 2 mg - Discharge Plan Discharge Plan: Consider Longer Term Tx
[2017-05-07] MEDS: Terazosin CAP* 1 MG PO SCH (20:31)
[2017-05-07] MEDS: clonazePAM TAB(*) 1 MG PO SCH (20:32)
[2017-05-07] MEDS: Divalproex ER TAB(*) 500 MG PO SCH (20:32)
[2017-05-07] MEDS: QUEtiapine TAB* 100 MG PO SCH (23:50)
[2017-05-08] MEDS: Naproxen TAB* 375 MG PO SCH ×2 (08:42→20:37)
[2017-05-08] MEDS: Furosemide TAB* 40 MG PO SCH (08:42)
[2017-05-08] MEDS: Cholecalciferol TAB* 1000 UNITS PO SCH (08:42)
[2017-05-08] MEDS: Vitamin THERAPEUTIC TAB PO SCH (08:42)
[2017-05-08] MEDS: Nicotine Inhaler* 10 MG AMP INH PRN (08:44)
[2017-05-08] MEDS: Mouth Piece, Nicotine* 1 EACH CARTRIDGE INH SCH (12:00)
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
[2017-05-08] MEDS: QUEtiapine TAB* 100 MG PO SCH (20:35)
[2017-05-08] MEDS: Divalproex ER TAB(*) 500 MG PO SCH (20:35)
[2017-05-08] MEDS: clonazePAM TAB(*) 1 MG PO SCH (20:35)
[2017-05-09] MEDS: QUEtiapine TAB* 100 MG PO SCH ×2 (00:03→21:11)
[2017-05-09] MEDS: Terazosin CAP* 1 MG PO SCH ×2 (00:06→21:12)
[2017-05-09] MEDS: Vitamin THERAPEUTIC TAB PO SCH (09:33)
[2017-05-09] MEDS: Cholecalciferol TAB* 1000 UNITS PO SCH (09:33)
[2017-05-09] MEDS: Naproxen TAB* 375 MG PO SCH ×2 (09:33→21:12)
[2017-05-09] MEDS: Furosemide TAB* 40 MG PO SCH (09:33)
[2017-05-09] MEDS: Acetaminophen TAB* 325 MG PO PRN (11:45)
--- NOTE | 2017-05-09 13:57 | PN ---
Subjective - Subjective Date of Service: 05/09/17 Service Type: 05362 Hosp care 15 min low complexity Subjective: Jacinto remains disruptive, dishevelled and disorganized on the unit. We have had numerous reports from the community that he is making upsetting and inappropriate phone calls to others. He is med and meal compliant but has no insight into his violent behavior at the [facility] prior to admission. He denies SI or HI. Objective - Appearance Appearance: Obese Dysmorphic Features: No Hygiene: Dirty Grooming: Disheveled - Behavior Psychomotor Activities: Normal Exhibits Abnormal Movement: Yes - Attitude and Relatedness Attitude and Relatedness: Psychotically Related Eye Contact: Fair - Speech Quality: Pressured Latencies: Short Quantity: Copious - Mood Patient's Decription of Mood: "Great" - Affect Observed Affect: Labile Affect Consistent with: Euphoria - Thought Process Patient's Thought Process: Tangential Thought Content: Yes Paranoid Ideation, No Passive Wish, No Suicidal Planning, No Homicidal Ideation - Sensorium Experiencing Hallucinations: No, Sensorium is Clear Type of Hallucinations: Visual: No, Auditory: No, Command: No - Level of Consciousness Level of Consciousness: Alert Orientation: Yes Intact, Yes Orientated to Time, Yes Orientated to Place, Yes Orientated to Person - Impulse Control Impulse Control: Poor - Insight and Judgement Insight and Judgement: Impaired - Group Participation Particating in Group Activities: No - Medication Management Medication Management Adherence: Yes Assessment - Assessment Merits Inpatient Hospitalization: For Immediate Safety, For Stabilization Inpatient DSM-IV Dx: Bipolar Anastasiia, severe with psychotic features Clinical Impression: 61 y.o. , obese, white male with a history of bipolar disorder, recently [facility] the [facility], now readmitted on an involuntary status due to agitated, disruptive and violent behavior at his family longterm, the [facility]. Plan - Plan Treatment Plan: Name: JACINTO LANDRY Birthdate: 1955 [id number] We have continued the patient's most recent psychiatric and medical medication regimen, including Depakote, quetiapine and clonazepam. We've added lactulose for elevated ammonia level. Patient would likely benefit from longer-term inpatient services in a [facility] facility. Continued Medication Management: Continue Outpt Medication Medications: Current Medications Acetaminophen (Tylenol Tab*) 650 mg PO Q4H PRN PRN Reason: PAIN or TEMP > 101 F Last Admin: 05/09/17 11:45 Dose: 650 mg Al Hydrox/Mg Hydrox/Simethicone (Maalox Plus*) 30 ml PO Q4H PRN PRN Reason: INDIGESTION Cholecalciferol (Vitamin D Tab*) 1,000 units PO DAILY [facility] Last Admin: 05/09/17 09:33 Dose: 1,000 units Clonazepam (Klonopin Tab(*)) 1 mg PO BEDTIME [facility] Last Admin: 05/08/17 20:35 Dose: 1 mg Device (Nicotine Mouth Piece*) 1 each INH .CARTRIDGE SRINIVAS Last Admin: 05/08/17 12:00 Dose: 1 each Divalproex Sodium (Depakote Er Tab(*)) 2,000 mg PO BEDTIME SRINIVAS Last Admin: 05/08/17 20:35 Dose: 2,000 mg Furosemide (Lasix Tab*) 40 mg PO DAILY [facility] Last Admin: 05/09/17 09:33 Dose: 40 mg Lactulose (Lactulose*) 30 ml PO BEDTIME SRINIVAS Last Admin: 05/09/17 00:07 Dose: 30 ml Multivitamins (Theragran Tab*) 1 tab PO DAILY SRIN[facility] Last Admin: 05/09/17 09:33 Dose: 1 tab Naproxen (Naprosyn Tab*) 375 mg PO BID [facility] Last Admin: 05/09/17 09:33 Dose: 375 mg Nicotine (Nicotine Inhaler*) 10 mg INH Q2H PRN PRN Reason: CRAVING Last Admin: 05/08/17 08:44 Dose: 10 mg Nicotine Polacrilex (Nicotine Gum*) 2 mg PO Q2H PRN PRN Reason: CRAVING Quetiapine Fumarate (Seroquel Tab*) 400 mg PO BEDTIME SRINIVAS Last Admin: 05/09/17 00:03 Dose: 400 mg Terazosin HCl (Hytrin Cap*) 2 mg PO BEDTIME [facility]IN[facility] Last Admin: 05/09/17 00:06 Dose: 2 mg - Discharge Plan Discharge Plan: Consider Longer Term Tx
[2017-05-09] MEDS: clonazePAM TAB(*) 1 MG PO SCH (21:12)
[2017-05-09] MEDS: Divalproex ER TAB(*) 500 MG PO SCH (21:12)
[2017-05-10] MEDS: QUEtiapine TAB* 100 MG PO SCH (01:27)
[2017-05-10] MEDS: Vitamin THERAPEUTIC TAB PO SCH (08:55)
[2017-05-10] MEDS: Furosemide TAB* 40 MG PO SCH (08:55)
[2017-05-10] MEDS: Naproxen TAB* 375 MG PO SCH ×2 (08:55→20:25)
[2017-05-10] MEDS: Cholecalciferol TAB* 1000 UNITS PO SCH (08:55)
[2017-05-10] MEDS: Nicotine Inhaler* 10 MG AMP INH PRN (08:58)
--- NOTE | 2017-05-10 12:00 | PN ---
Subjective - Subjective Date of Service: 05/10/17 Service Type: 10824 Hosp care 15 min low complexity Subjective: Jacinto has apparently been upset with this clinician, complaining to multiple staff that I am somehow conspiring with the [facility] staff to keep him away from his Granddaughter's Paige and Birthday parties. He is labile and tearful during the exam and continues to deny making homicidal threats or physical advances towards staff at [facility]. He is dishevelled and disorganized on presentation. Objective - Appearance Appearance: Obese Dysmorphic Features: No Hygiene: Dirty Grooming: Disheveled - Behavior Psychomotor Activities: Normal Exhibits Abnormal Movement: Yes - Attitude and Relatedness Attitude and Relatedness: Psychotically Related Eye Contact: Fair - Speech Quality: Pressured Latencies: Short Quantity: Copious - Mood Patient's Decription of Mood: "Terrible" - Affect Observed Affect: Labile Affect Consistent with: Dysphoria - Thought Process Patient's Thought Process: Tangential Thought Content: Yes Paranoid Ideation, No Passive Wish, No Suicidal Planning, No Homicidal Ideation - Sensorium Experiencing Hallucinations: No, Sensorium is Clear Type of Hallucinations: Visual: No, Auditory: No, Command: No - Level of Consciousness Level of Consciousness: Agitated Orientation: Yes Intact, Yes Orientated to Time, Yes Orientated to Place, Yes Orientated to Person - Impulse Control Impulse Control: Poor - Insight and Judgement Insight and Judgement: Impaired - Group Participation Particating in Group Activities: No - Medication Management Medication Management Adherence: Yes Assessment - Assessment Merits Inpatient Hospitalization: For Immediate Safety, For Stabilization Inpatient DSM-IV Dx: Bipolar Anastasiia, severe with psychotic features Clinical Impression: 61 y.o. , obese, white male with a history of bipolar disorder, recently [facility] the [facility], now readmitted on an involuntary status due to agitated, disruptive and violent behavior at his family retirement, the [facility]. Plan - Plan Treatment Plan: Name: JACINTO LANDRY SR Birthdate: 1955 [id number] We have continued the patient's most recent psychiatric and medical medication regimen, including Depakote, quetiapine and clonazepam. We've added lactulose for elevated ammonia level. Patient would likely benefit from longer-term inpatient services in a [facility] Psych[facility] facility. Continued Medication Management: Continue Outpt Medication Medications: Current Medications Acetaminophen (Tylenol Tab*) 650 mg PO Q4H PRN PRN Reason: PAIN or TEMP > 101 F Last Admin: 05/09/17 11:45 Dose: 650 mg Al Hydrox/Mg Hydrox/Simethicone (Maalox Plus*) 30 ml PO Q4H PRN PRN Reason: INDIGESTION Cholecalciferol (Vitamin D Tab*) 1,000 units PO DAILY [facility] Last Admin: 05/10/17 08:55 Dose: 1,000 units Clonazepam (Klonopin Tab(*)) 1 mg PO BEDTIME [facility] Last Admin: 05/09/17 21:12 Dose: 1 mg Device (Nicotine Mouth Piece*) 1 each INH .CARTRIDGE SRINIVAS Last Admin: 05/08/17 12:00 Dose: 1 each Divalproex Sodium (Depakote Er Tab(*)) 2,000 mg PO BEDTIME SRIN[facility] Last Admin: 05/09/17 21:12 Dose: 2,000 mg Furosemide (Lasix Tab*) 40 mg PO DAILY [facility] Last Admin: 05/10/17 08:55 Dose: 40 mg Lactulose (Lactulose*) 30 ml PO BEDTIME SR[facility] Last Admin: 05/09/17 21:13 Dose: 30 ml Multivitamins (Theragran Tab*) 1 tab PO DAILY [facility] Last Admin: 05/10/17 08:55 Dose: 1 tab Naproxen (Naprosyn Tab*) 375 mg PO BID [facility] Last Admin: 05/10/17 08:55 Dose: 375 mg Nicotine (Nicotine Inhaler*) 10 mg INH Q2H PRN PRN Reason: CRAVING Last Admin: 05/10/17 08:58 Dose: 10 mg Nicotine Polacrilex (Nicotine Gum*) 2 mg PO Q2H PRN PRN Reason: CRAVING Quetiapine Fumarate (Seroquel Tab*) 400 mg PO BEDTIME [facility]INIVAS Last Admin: 05/10/17 01:27 Dose: 400 mg Terazosin HCl (Hytrin Cap*) 2 mg PO BEDTIME [facility] Last Admin: 05/09/17 21:12 Dose: 2 mg - Discharge Plan Discharge Plan: Consider Longer Term Tx
[2017-05-10] MEDS: Acetaminophen TAB* 325 MG PO PRN (15:35)
[2017-05-10] MEDS: Divalproex ER TAB(*) 500 MG PO SCH (20:24)
[2017-05-10] MEDS: Terazosin CAP* 1 MG PO SCH (20:25)
[2017-05-10] MEDS: clonazePAM TAB(*) 1 MG PO SCH (20:25)
[2017-05-11] MEDS: QUEtiapine TAB* 100 MG PO SCH ×2 (01:55→03:00)
[2017-05-11] MEDS: Naproxen TAB* 375 MG PO SCH ×2 (09:03→22:02)
[2017-05-11] MEDS: Cholecalciferol TAB* 1000 UNITS PO SCH (09:03)
[2017-05-11] MEDS: Vitamin THERAPEUTIC TAB PO SCH (09:03)
[2017-05-11] MEDS: Furosemide TAB* 40 MG PO SCH (09:03)
--- NOTE | 2017-05-11 13:47 | PN ---
Subjective - Subjective Date of Service: 05/11/17 Service Type: 44679 Hosp care 15 min low complexity Subjective: Jacinto is hyperverbal, dishevelled, and rambling, talking about over-inclusive, irrelevant topics and making a mess out of whatever seat or table he occupies on the milieu. He continues to deny his aggressive behavior at the [facility] and feels we are conspiring against them with [place] staff. Objective - Appearance Appearance: Obese Dysmorphic Features: No Hygiene: Dirty Grooming: Disheveled - Behavior Psychomotor Activities: Abnormal-Increased Exhibits Abnormal Movement: Yes - Attitude and Relatedness Attitude and Relatedness: Psychotically Related Eye Contact: Fair - Speech Quality: Pressured Latencies: Short Quantity: Copious - Mood Patient's Decription of Mood: "Great" - Affect Observed Affect: Labile Affect Consistent with: Euphoria - Thought Process Patient's Thought Process: Tangential Thought Content: Yes Paranoid Ideation, No Passive Wish, No Suicidal Planning, No Homicidal Ideation - Sensorium Experiencing Hallucinations: No, Sensorium is Clear Type of Hallucinations: Visual: No, Auditory: No, Command: No - Level of Consciousness Level of Consciousness: Alert Orientation: Yes Intact, Yes Orientated to Time, Yes Orientated to Place, Yes Orientated to Person - Impulse Control Impulse Control: Poor - Insight and Judgement Insight and Judgement: Impaired - Group Participation Particating in Group Activities: No - Medication Management Medication Management Adherence: Yes Assessment - Assessment Merits Inpatient Hospitalization: For Immediate Safety, For Stabilization Inpatient DSM-IV Dx: Bipolar Anastasiia, severe with psychotic features Clinical Impression: 61 y.o. , obese, white male with a history of bipolar disorder, recently [facility] the [facility], now readmitted on an involuntary status due to agitated, disruptive and violent behavior at his family snf, the [facility]. Plan - Plan Treatment Plan: Name: JACINTO LANDRY Birthdate: 1955 [id number] We have continued the patient's most recent psychiatric and medical medication regimen, including Depakote, quetiapine and clonazepam. We've added lactulose for elevated ammonia level. Patient would likely benefit from longer-term inpatient services in a [facility] Psych[facility] facility. Continued Medication Management: Continue Outpt Medication Medications: Current Medications Acetaminophen (Tylenol Tab*) 650 mg PO Q4H PRN PRN Reason: PAIN or TEMP > 101 F Last Admin: 05/10/17 15:35 Dose: 650 mg Al Hydrox/Mg Hydrox/Simethicone (Maalox Plus*) 30 ml PO Q4H PRN PRN Reason: INDIGESTION Cholecalciferol (Vitamin D Tab*) 1,000 units PO DAILY [facility] Last Admin: 05/11/17 09:03 Dose: 1,000 units Clonazepam (Klonopin Tab(*)) 1 mg PO BEDTIME [facility] Last Admin: 05/10/17 20:25 Dose: 1 mg Device (Nicotine Mouth Piece*) 1 each INH .CARTRIDGE SRINIVAS Last Admin: 05/08/17 12:00 Dose: 1 each Divalproex Sodium (Depakote Er Tab(*)) 2,000 mg PO BEDTIME [facility] Last Admin: 05/10/17 20:24 Dose: 2,000 mg Furosemide (Lasix Tab*) 40 mg PO DAILY [facility] Last Admin: 05/11/17 09:03 Dose: 40 mg Lactulose (Lactulose*) 30 ml PO BEDTIME [facility] Last Admin: 05/10/17 20:24 Dose: 30 ml Multivitamins (Theragran Tab*) 1 tab PO DAILY [facility] Last Admin: 05/11/17 09:03 Dose: 1 tab Naproxen (Naprosyn Tab*) 375 mg PO BID [facility] Last Admin: 05/11/17 09:03 Dose: 375 mg Nicotine (Nicotine Inhaler*) 10 mg INH Q2H PRN PRN Reason: CRAVING Last Admin: 05/10/17 08:58 Dose: 10 mg Nicotine Polacrilex (Nicotine Gum*) 2 mg PO Q2H PRN PRN Reason: CRAVING Quetiapine Fumarate (Seroquel Tab*) 400 mg PO BEDTIME [facility] Last Admin: 05/11/17 03:00 Dose: 400 mg Terazosin HCl (Hytrin Cap*) 2 mg PO BEDTIME [facility] Last Admin: 05/10/17 20:25 Dose: 2 mg - Discharge Plan Discharge Plan: Consider Longer Term Tx Lab Results - Lab Results Lab Results: 05/11/17 05/11/17 07:25 08:55 Ammonia TNP 56 H
[2017-05-11] MEDS: Divalproex ER TAB(*) 500 MG PO SCH (22:01)
[2017-05-11] MEDS: clonazePAM TAB(*) 1 MG PO SCH (22:02)
[2017-05-11] MEDS: Terazosin CAP* 1 MG PO SCH (22:02)
[2017-05-12] MEDS: QUEtiapine TAB* 100 MG PO SCH ×2 (00:30→21:54)
[2017-05-12] MEDS: Acetaminophen TAB* 325 MG PO PRN ×2 (00:30→16:56)
[2017-05-12] MEDS: Nicotine Inhaler* 10 MG AMP INH PRN (00:30)
[2017-05-12] MEDS: Naproxen TAB* 375 MG PO SCH ×2 (08:49→20:16)
[2017-05-12] MEDS: Furosemide TAB* 40 MG PO SCH (08:49)
[2017-05-12] MEDS: Vitamin THERAPEUTIC TAB PO SCH (08:49)
[2017-05-12] MEDS: Cholecalciferol TAB* 1000 UNITS PO SCH (08:49)
[2017-05-12] MEDS ORDERED: LORazepam TAB(*) 1 MG ONE ×2 (13:35→17:21)
[2017-05-12] MEDS: Divalproex ER TAB(*) 500 MG PO SCH (20:15)
[2017-05-12] MEDS: clonazePAM TAB(*) 1 MG PO SCH (20:16)
[2017-05-12] MEDS: Terazosin CAP* 1 MG PO SCH (20:16)
[2017-05-12] MEDS ORDERED: LORazepam INJ* 2 MG/ML 1 ML VIAL ONE (22:52)
[2017-05-12] MEDS ORDERED: diPHENhydraMINE IV* 50 MG/ML 1 ml VIAL (BENADRYL) ONE (22:52)
[2017-05-12] MEDS ORDERED: Haloperidol INJ IV/IM* 5 MG/ML AMP ONE (22:52)
[2017-05-13] MEDS: Naproxen TAB* 375 MG PO SCH ×2 (11:15→20:42)
[2017-05-13] MEDS: Cholecalciferol TAB* 1000 UNITS PO SCH (11:15)
[2017-05-13] MEDS: Vitamin THERAPEUTIC TAB PO SCH (11:15)
[2017-05-13] MEDS: Furosemide TAB* 40 MG PO SCH (11:16)
[2017-05-13] MEDS: Nicotine Inhaler* 10 MG AMP INH PRN (18:47)
[2017-05-13] MEDS: Terazosin CAP* 1 MG PO SCH (20:41)
[2017-05-13] MEDS: clonazePAM TAB(*) 1 MG PO SCH (20:42)
[2017-05-13] MEDS: Divalproex ER TAB(*) 500 MG PO SCH (20:43)
[2017-05-13] MEDS: QUEtiapine TAB* 100 MG PO SCH (23:49)
[2017-05-14] MEDS: Naproxen TAB* 375 MG PO SCH ×2 (09:22→20:13)
[2017-05-14] MEDS: Furosemide TAB* 40 MG PO SCH (09:23)
[2017-05-14] MEDS: Vitamin THERAPEUTIC TAB PO SCH (09:23)
[2017-05-14] MEDS: Cholecalciferol TAB* 1000 UNITS PO SCH (09:23)
--- NOTE | 2017-05-14 12:26 | PN ---
Subjective - Subjective Date of Service: 05/14/17 Service Type: 83719 Hosp care 15 min low complexity Subjective: The patient remains dishevelled and disorganized. "Do you agree that the Devil is attacking me?" The patient received prn ativan for agitation over the weekend and destroyed his CPAP machine by pouring water into it. He is not responding to acute inpatient treatment and warrants State transfer, to which he has given consent. Objective - Appearance Appearance: Obese Dysmorphic Features: No Hygiene: Dirty Grooming: Disheveled - Behavior Psychomotor Activities: Abnormal-Increased Exhibits Abnormal Movement: Yes - Attitude and Relatedness Attitude and Relatedness: Psychotically Related Eye Contact: Poor - Speech Quality: Pressured Latencies: Short Quantity: Copious - Mood Patient's Decription of Mood: "Angry" - Affect Observed Affect: Labile Affect Consistent with: Dysphoria - Thought Process Patient's Thought Process: Disorganized, Tangential, Over Inclusive Thought Content: Yes Paranoid Ideation, No Passive Wish, No Suicidal Planning, No Homicidal Ideation - Sensorium Experiencing Hallucinations: No, Sensorium is Clear Type of Hallucinations: Visual: No, Auditory: No, Command: No - Level of Consciousness Level of Consciousness: Alert Orientation: Yes Intact, Yes Orientated to Time, Yes Orientated to Place, Yes Orientated to Person - Impulse Control Impulse Control: Poor - Insight and Judgement Insight and Judgement: Impaired - Group Participation Particating in Group Activities: No - Medication Management Medication Management Adherence: Yes Assessment - Assessment Merits Inpatient Hospitalization: For Immediate Safety, For Stabilization Inpatient DSM-IV Dx: Bipolar Anastasiia, severe with psychotic features Clinical Impression: 61 y.o. , obese, white male with a history of bipolar disorder, recently [facility] from the [facility], now readmitted on an involuntary status due to agitated, disruptive and violent behavior at his family intermediate, the [facility]. Plan - Plan Treatment Plan: Name: ANASTASIA LANDRY Birthdate: 1955 [id number] We have continued the patient's most recent psychiatric and medical medication regimen, including Depakote, quetiapine and clonazepam. We've added lactulose for elevated ammonia level. Patient would likely benefit from longer-term inpatient services in a [facility] facility. Continued Medication Management: Continue Outpt Medication Medications: Current Medications Acetaminophen (Tylenol Tab*) 650 mg PO Q4H PRN PRN Reason: PAIN or TEMP > 101 F Last Admin: 05/12/17 16:56 Dose: 650 mg Al Hydrox/Mg Hydrox/Simethicone (Maalox Plus*) 30 ml PO Q4H PRN PRN Reason: INDIGESTION Cholecalciferol (Vitamin D Tab*) 1,000 units PO DAILY [facility] Last Admin: 05/14/17 09:23 Dose: 1,000 units Clonazepam (Klonopin Tab(*)) 1 mg PO BEDTIME [facility] Last Admin: 05/13/17 20:42 Dose: 1 mg Device (Nicotine Mouth Piece*) 1 each INH .CARTRIDGE SRINIVAS Last Admin: 05/08/17 12:00 Dose: 1 each Divalproex Sodium (Depakote Er Tab(*)) 2,000 mg PO BEDTIME [facility] Last Admin: 05/13/17 20:43 Dose: 2,000 mg Furosemide (Lasix Tab*) 40 mg PO DAILY [facility] Last Admin: 05/14/17 09:23 Dose: 40 mg Lactulose (Lactulose*) 30 ml PO BEDTIME [facility] Last Admin: 05/13/17 20:41 Dose: 30 ml Multivitamins (Theragran Tab*) 1 tab PO DAILY [facility] Last Admin: 05/14/17 09:23 Dose: 1 tab Naproxen (Naprosyn Tab*) 375 mg PO BID [facility] Last Admin: 05/14/17 09:22 Dose: 375 mg Nicotine (Nicotine Inhaler*) 10 mg INH Q2H PRN PRN Reason: CRAVING Last Admin: 05/13/17 18:47 Dose: 10 mg Nicotine Polacrilex (Nicotine Gum*) 2 mg PO Q2H PRN PRN Reason: CRAVING Quetiapine Fumarate (Seroquel Tab*) 400 mg PO BEDTIME [facility] Last Admin: 05/13/17 23:49 Dose: 400 mg Terazosin HCl (Hytrin Cap*) 2 mg PO BEDTIME [facility] Last Admin: 05/13/17 20:41 Dose: 2 mg - Discharge Plan Discharge Plan: Consider Longer Term Tx
[2017-05-14] MEDS ORDERED: Mouth Piece, Nicotine* 1 EACH CARTRIDGE ONE (12:35)
[2017-05-14] MEDS: Nicotine Inhaler* 10 MG AMP INH PRN ×2 (12:36→20:12)
[2017-05-14] MEDS: Mouth Piece, Nicotine* 1 EACH CARTRIDGE INH SCH (12:36)
[2017-05-14] MEDS: Acetaminophen TAB* 325 MG PO PRN ×2 (12:36→18:11)
[2017-05-14] MEDS: Divalproex ER TAB(*) 500 MG PO SCH (20:13)
[2017-05-14] MEDS: clonazePAM TAB(*) 1 MG PO SCH (20:13)
[2017-05-14] MEDS: Terazosin CAP* 1 MG PO SCH (20:54)
[2017-05-14] MEDS: QUEtiapine TAB* 100 MG PO SCH (23:59)
[2017-05-15] MEDS: Naproxen TAB* 375 MG PO SCH ×2 (11:02→21:22)
[2017-05-15] MEDS: Furosemide TAB* 40 MG PO SCH (11:02)
[2017-05-15] MEDS: Vitamin THERAPEUTIC TAB PO SCH (11:02)
[2017-05-15] MEDS: Cholecalciferol TAB* 1000 UNITS PO SCH (11:02)
[2017-05-15] MEDS: Nicotine Inhaler* 10 MG AMP INH PRN (13:17)
[2017-05-15] MEDS: Mouth Piece, Nicotine* 1 EACH CARTRIDGE INH SCH (13:18)
[2017-05-15] MEDS: Acetaminophen TAB* 325 MG PO PRN (13:18)
[2017-05-15] MEDS: Terazosin CAP* 1 MG PO SCH (21:21)
[2017-05-15] MEDS: clonazePAM TAB(*) 1 MG PO SCH (21:21)
[2017-05-15] MEDS: Divalproex ER TAB(*) 500 MG PO SCH (21:22)
[2017-05-16] MEDS: QUEtiapine TAB* 100 MG PO SCH (00:20)
[2017-05-16] MEDS: Naproxen TAB* 375 MG PO SCH (08:11)
[2017-05-16] MEDS: Cholecalciferol TAB* 1000 UNITS PO SCH (08:12)
[2017-05-16] MEDS: Vitamin THERAPEUTIC TAB PO SCH (08:12)
[2017-05-16] MEDS: Furosemide TAB* 40 MG PO SCH (08:12)
[2017-05-16 08:17] VITALS: BP 126/62
--- NOTE | 2017-05-17 04:56 | DS ---
DISCHARGE SUMMARY: DATE OF ADMISSION: 05/06/17 DATE OF DISCHARGE: 05/16/17 DISCHARGE DIAGNOSES: As follows: [place] I: Bipolar disorder type 1, most recent episode manic, severe with psychotic features; cannabis use disorder. [place] II: Deferred. [place] III: Sleep apnea, hypertension, low vitamin D, obesity, neuroleptic- induced Parkinson's disease. [place] IV: Moderate primary support stressors. [place] V: At the time of admission was 30 and at the time of discharge is 40. CONDITION AT THE TIME OF DISCHARGE: Guarded. The patient remained psychotic. He believes that the devil is persecuting him. He voices numerous persecutory delusions to the effect that the [facility] is against him and that they are selling methamphetamine in the community to get money. He takes no responsibility for his violent actions at his personal ch[facility] leading up to this admission and he has not responded to acute inpatient psychiatric treatment. For these reasons, he is being transferred to the [facility] for longer-term inpatient psychiatric services and rehabilitation. MENTAL STATUS EXAM AT THE TIME OF DISCHARGE: The patient is an aging white male who is disheveled, dirty. He is covered with food particles, red flaking skin showing marked deficits in self-care. Speech is pressured and hyperverbal. Attitude towards this clinician is irritable and minimally cooperative. Mood is manic with a labile affect. Thought process is disorganized and tangential. Thought content is significant for his insistence that he be discharged in order to be with his girlfriend who is a known felon in the [facility]. He denies suicidal or homicidal ideations. He denies auditory or visual hallucinations; however, he is clearly paranoid with hyperreligious and persecutory thought content. Insight and judgment are markedly impaired given his refusal for ongoing inpatient treatment. Cognitively, he is awake and alert with what would appear to be an average intellect. DISCHARGE INSTRUCTIONS TO THE PATIENT: Are as follows: A. Medications: He takes, 1. Klonopin 1 mg p.o. q.h.s. 2. Terazosin 2 mg p.o. q.h.s. 3. Multivitamin 1 tablet p.o. daily. 4. Seroquel 400 mg p.o. q.h.s. 5. Nicotine inhaler 10 mg inhaled every 2 hours as a p.r.n. for smoking cessation. 6. Nicotine gum 2 mg p.o. q.2 hours p.r.n. for nicotine cessation. 7. Naprosyn 375 mg p.o. b.i.d. 8. Lactulose 30 mL p.o. q.h.s. 9. Furosemide 40 mg p.o. daily. 10. Depakote ER 2000 mg p.o. daily. 11. Vitamin D 1000 units p.o. daily. 12. Tylenol 650 mg every 4 hours as a p.r.n. for pain. B. Diet is regular. C: Activities as per [facility] protocol. The patient is expressing an interest in continued nicotine replacement therapy and we have continued both his nicotine inhaler and nicotine gum. There are no studies pending at the time of discharge. D. Followup care: The patient will follow up at the [facility] where he will continue to receive intensive inpatient services. They will be responsible for discharge referrals and mental health appointments at his time of release from that facility. E. Substance abuse followup: The patient is a cannabis abuser, but is refusing treatment for this. HOSPITAL COURSE: Part A: Reason for admission: Jacinto is a 61-year-old white male with a history of bipolar disorder who had just been discharged from the behavioral science unit in March of this year, who now is brought back by the police after an incident at the [facility], which is an adult care facility, in which he became disorganized, agitated, and aggressive. During his emergency visit, he was labile and his mood fluctuated between giggling to crying. He was circumstantial reporting that the [facility] was conspiring against him. Later we received collateral information from [facility] that the patient had grabbed fellow peer's cellular phone and when staff attempted to get him away from this, he grabbed a female staff member firmly and shouted homicidal statements towards her. He was a poor historian and denied all of these claims. Incidentally, it was discovered on admission that his ammonia level was elevated at 100 and it was not certain whether this was a contributing factor to his thought disorganization. Part B. Psychiatric treatment rendered: The patient was readmitted to the adult behavioral health unit and placed on q.15 minute checks for his own safety. We immediately resumed all medications including his psychiatric medicines, which were Klonopin, Depakote ER, and Seroquel. It appeared as though the patient was even more disorganized than his most recent admission. He was disheveled, often made messes throughout the milieu, was unable to participate in groups, would become hostile, crying at times, and screaming at staff members and others. He was also seen to get into verbal altercations with fellow peers on the unit. He was placed on a CPAP machine for sleep apnea , but later destroyed his home machine by pouring water in it. We were reluctant to increase his Seroquel due to the movement disorders and upper extremity tremulousness that he continues to suffer from. Similarly, we were reluctant to change his antipsychotic therapy given the fact that he has had worsening movement problems with other neuroleptics in the past. The patient's metabolic studies were not tested at this time due to the fact that he had recent values from his hospitalization in March, for example on 04/18/17, his hemoglobin A1c was 5.1%, cholesterol was 166, triglycerides 183, LDL was 67 , and HDL was 62.3. His ammonia level was tracked initially at 100 but after a lactulose therapy it went down and was consistently between 56 and 61 after several rechecks. It is unclear at this time what is causing his elevated ammonia levels. In addition, his labs revealed positive cannabinoid, metabolites. He was again counseled on the dangerousness of cannabis, but declined any formal treatment recommendations for this. Ultimately, he could not be stabilized in the short-term setting and was referred to the [facility] who accepted him and he was transferred on Tuesday, May 16, 2017 to their good care. [id number]/[facility] #: [id number] KHALIDA
== END 2017-05-16 09:40 | DRG 885 ==
LOC: ED 21:13 → BSU 05-06 11:13
PROVIDERS: ADMIT Psychiatry & Neurology Psychiatry; ATTEND Psychiatry & Neurology Psychiatry
DX: F31.2 Bipolar disorder, current episode manic severe with psychotic features (principal); E66.01 Morbid (severe) obesity due to excess calories; G20 Parkinson's disease; F12.10 Cannabis abuse, uncomplicated; G47.30 Sleep apnea, unspecified; E55.9 Vitamin D deficiency, unspecified; Z68.39 Body mass index [BMI] 39.0-39.9, adult; Z79.1 Long term (current) use of non-steroidal anti-inflammatories (NSAID); Z79.899 Other long term (current) drug therapy
CPT/HCPCS: 36415; 80053; 80164; 80307; 80320; 80329; 81003; 82140; 83735; 85025; 94660; 99222; 99231; 99238; A9270-GY; G0480; J1200; J1630; J2060

== ENCOUNTER 2018-08-26 16:46 | Emergency (ER) | payer MEDICARE ==
[2018-08-26] MEDS ORDERED: Nicotine Inhaler* 10 MG AMP INH PRN (17:27)
--- NOTE | 2018-08-26 17:28 | ED ---
Lower Extremity - HPI Summary HPI Summary: This patient is a 62 year old M presenting to ED with a chief complaint of L foot pain since injury in 1986 but worsened towards the end of 2016. The patient rates the pain 10/10 in severity. Symptoms aggravated by ambulation. Symptoms alleviated by nothing. Patient is on crutches. Patient wants to have a cast up to his knee. The patient says that he adopted 4 kids in this county and hes trying to get away from one of them because he is schizophrenic and is causing him trouble. He says that because of this stress, he has not been taking care of himself. Patient reports pelvic pain, L ankle pain, pain on the ball of his foot, L heel pain, and insomnia. Patient denies SI and HI. Denies PMHx of DM. He does not have an orthopedist. Patient has taken Tylenol and Indocin from [facility]. The patient wants to be voluntarily admitted because he wants to get away from his son. His son kicked him out of his apartment. Patient does not take drugs or drink alcohol. - History of Current Complaint Chief Complaint: EDExtremityLower Stated Complaint: LEFT LEG HURTS - PER PT Time Seen by Provider: 08/26/18 16:59 Hx Obtained From: Patient Onset of Pain: Days - since injury in 1986 but worsened towards the end of 2016 Onset/Duration: Weeks - since injury in 1986 but worsened towards the end of 2016 Severity Currently: Severe Pain Intensity: 10 Pain Scale Used: 0-10 Numeric Timing: Constant, Lasting Weeks Location: Is Discrete @ - L ankle pain, pain on the ball of his foot, L heel pain Associated Signs And Symptoms: Positive: Swelling Aggravating Factor(s): Ambulation Alleviating Factor(s): Nothing Able to Bear Weight: Yes - uses crutches - Allergies/Home Medications Allergies/Adverse Reactions: Allergies Allergy/AdvReac Type Severity Reaction Status Date / Time No Known Allergies Allergy Verified 08/26/18 16:50 Home Medications: Home Medications Cyclobenzaprine TAB* [Flexeril 10 MG TAB*] 10 mg PO TID PRN 08/26/18 [History Confirmed 08/26/18] Divalproex ER TAB(*) [Depakote ER TAB(*)] 1,000 mg PO BEDTIME 08/26/18 [History Confirmed 08/26/18] Indomethacin CAP* [Indocin CAP*] 25 mg PO TID PRN 08/26/18 [History Confirmed ] Passapatanzy Carbonate [Passapatanzy Carbonate 600 mg cap] 600 mg PO BID 08/26/18 [ History Confirmed 08/26/18] Polyethylene Glycol 3350* [Miralax*] 17 gm PO DAILY PRN 08/26/18 [History Confirmed 08/26/18] QUEtiapine TAB* [Seroquel 100 MG *] 200 mg PO QAM 08/26/18 [History Confirmed ] Quetiapine Fumarate [Seroquel 400 MG] 400 mg PO BEDTIME 08/26/18 [History Confirmed 08/26/18] PMH/Surg Hx/FS Hx/Imm Hx Endocrine/Hematology History: Denies: Hx Anticoagulant Therapy, Hx Blood Disorders, Hx Diabetes, Hx Thyroid Disease, Hx Anemia, Hx Unexplained Bleeding Cardiovascular History: Reports: Hx Hypertension Denies: Hx Pacemaker/ICD Respiratory History: Reports: Hx Chronic Obstructive Pulmonary Disease (COPD), Other Respiratory Problems/Disorders - sleep apnea Denies: Hx Asthma GI History: Denies: Hx Gastroesophageal Reflux Disease, Hx Gastrointestinal Bleed, Hx Ulcer History: Reports: Other Problems/Disorders - Urethral constriction, 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 Denies: Hx Acute Renal Failure, Hx Chronic Renal Failure, Hx Renal Disease Musculoskeletal History: Reports: Other Musculoskeletal History - chronic back pain Sensory History: Reports: Hx Contacts or Glasses, Hx Hearing Problem - Left side Denies: Hx Hearing Aid Opthamlomology History: Reports: Hx Contacts or Glasses Neurological History: Denies: Hx Dementia, Hx Seizures Psychiatric History: Reports: Hx Inpatient Treatment, Hx Community Mental Health Tx, Hx Bipolar Disorder, Hx Substance Abuse, Other Psychiatric Issues/ Disorders - bipolar, isabella Denies: Hx Panic Disorder - Surgical History Surgery Procedure, Year, and Place: abdominal surgery - removal of ganglion. 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 - Immunization History Date of Tetanus Vaccine: utd Date of Influenza Vaccine: 2015 Infectious Disease History: No Infectious Disease History: Denies: Hx Hepatitis, Hx Human Immunodeficiency Virus (HIV), Hx of Known/ Suspected MRSA, Hx Shingles, Hx Tuberculosis, History Other Infectious Disease, Traveled Outside the [place] in Last 30 Days - Family History Known Family History: Negative: Cardiac Disease, Hypertension, Diabetes - Social History Alcohol Use: Occasionally Hx Substance Use: Yes Substance Use Type: Reports: Marijuana, Prescribed Substance Use Comment - Amount & Last Used: November 2016 Hx Tobacco Use: Yes Smoking Status (MU): Current Every Day Smoker Type: Cigarettes Amount Used/How Often: smokes 1/2 to 3/4 of a cigarette day in the last 30 days Have You Smoked in the Last Year: Yes Review of Systems Negative: Fever, Chills Negative: Erythema Negative: Sore Throat Negative: Chest Pain Negative: Shortness Of Breath, Cough Negative: Abdominal Pain, Vomiting, Nausea Negative: dysuria, hematuria Positive: Other - L ankle pain, pain on the ball of his foot, L heel pain, pelvic pain. Negative: Myalgia, Edema Negative: Rash Neurological: Other - insomnia; denies dizziness Psychological: Other - stress from schizophrenic son, wants to get away from him ; denies SI/HI All Other Systems Reviewed And Are Negative: Yes Physical Exam - Summary Physical Exam Summary: Constitutional: Well-developed, Well-nourished, Alert. (-) Distressed Skin: Warm, Dry HENT: Normocephalic; Atraumatic Eyes: Conjunctiva normal Neck: Musculoskeletal ROM normal neck. (-) JVD, (-) Stridor, (-) Tracheal deviation Cardio: Rhythm regular, rate normal, Heart sounds normal; Intact distal pulses; The pedal pulses are 2+ and symmetric. Radial pulses are 2+ and symmetric. (-) Murmur Pulmonary/Chest wall: Effort normal. (-) Respiratory distress, (-) Wheezes, (-) Rales Abd: Soft, (-) epigastric tenderness, (-) Distension, (-) Guarding, (-) Rebound Musculoskeletal: (-) Edema, No bony tenderness of the L foot, FROM at the ankle , points to his plantar aspect of his midfoot as the source of his pain, skin is intact Lymph: (-) Cervical adenopathy Neuro: Alert, Oriented x3 Psych: Mood and affect Normal Triage Information Reviewed: Yes Vital Signs On Initial Exam: Initial Vitals Temp Pulse Resp BP Pulse Ox 98.1 F 89 20 159/91 98 08/26/18 16:49 08/26/18 16:49 08/26/18 16:49 08/26/18 16:49 08/26/18 16:49 Vital Signs Reviewed: Yes Diagnostics - Vital Signs Vital Signs Temp Pulse Resp BP Pulse Ox 08/26/18 16:49 98.1 F 89 20 159/91 98 - Laboratory Result Diagrams: 08/26/18 17:44 08/26/18 17:44 Lab Statement: Any lab studies that have been ordered have been reviewed, and results considered in the medical decision making process. Lower Extremity Course/Dx - Course Assessment/Plan: This patient is a 62 year old M presenting to ED with a chief complaint of L foot pain since injury in 1986 but worsened towards the end of 2016. In the ED course, the patient was given a nicotine inhaler. Patient is cleared for MHE at 1919. MHE done by Dr. Bentley at 1937. This patient will be discharged with dx of plantar fasciitis and bipolar disorder. Patient understands and agrees with this plan. - Diagnoses Differential Diagnosis/HQI/PQRI: Positive: Other - plantar fasciitis and bipolar disorder Provider Diagnoses: Plantar fasciitis, Bipolar disorder Discharge - Sign-Out/Discharge Documenting (check all that apply): Patient Departure - discharge Patient Received Moderate/Deep Sedation with Procedure: No - Discharge Plan Condition: Stable Disposition: HOME Referrals: Yamil Barron MD [Medical Doctor] - 3 Days Additional Instructions: RETURN TO THE EMERGENCY DEPARTMENT FOR CHANGING OR WORSENING SYMPTOMS - Attestation Statements Document Initiated by Scribe: Yes Documenting Scribe: Earl Seymour Provider For Whom Scribe is Documenting (Include Credential): Rian Murphy MD Scribe Attestation: Earl Rose, scribed for Rian Murphy MD on 08/26/18 at 1942. Status of Scribe Document: Ready
[2018-08-26 17:56] LABS: ABS Basophils 0 10^3/ul (0-0.2); ABS Eosinophils 0.3 10^3/ul (0-0.6); ABS Lymphocytes 1.7 10^3/ul (1.0-4.8); ABS Monocytes 1.4 10^3/ul (0-0.8); ABS Neutrophils 7.3 10^3/ul (1.5-7.7); ABS Nucleated RBC 0 10^3/ul; Eosinophil % 2.6 %; Hematocrit 46 % (36-46); Hemoglobin 15.6 g/dL (14.0-18.0); Lymphocyte % 15.6 %; Mean Corpuscular HGB Conc 34 g/dL (31-36); Mean Corpuscular Hemoglobin 30 pg (27-31); Mean Corpuscular Volume 88 fL (80-94); Mean Platelet Volume 8.3 fL (7.4-10.4); Nucleated Red Blood Cells % 0.1; Platelet Count 293 10^3/uL (150-450); Red Blood Count 5.18 10^6 /uL (4.18-5.48); Red Cell Distribution Width 13 % (10.5-15); White Blood Count 10.7 10^3/uL (3.5-10.8)
[2018-08-26] MEDS ORDERED: Mouth Piece, Nicotine* 1 EACH CARTRIDGE INH PRN (17:57)
[2018-08-26 18:10] LABS: ALT 15 U/L (7-52); AST 15 U/L (13-39); Albumin 3.9 g/dL (3.2-5.2); Albumin/Globulin Ratio 1.4 (1-3); Alkaline Phosphatase 65 U/L (34-104); Anion Gap 6 mmol/L (2-11); BUN/Creatinine Ratio 21.1 (8-20); Blood Urea Nitrogen 15 mg/dL (6-24); CO2 Carbon Dioxide 25 mmol/L (22-32); Calcium 9.4 mg/dL (8.6-10.3); Chloride 104 mmol/L (101-111); EGFR Non-African American 112.4 (>60); Globulin 2.7 g/dL (2-4); Glucose 98 mg/dL (70-100); Potassium 3.9 mmol/L (3.5-5.0); Sodium 135 mmol/L (135-145); Total Protein 6.6 g/dL (6.4-8.9)
[2018-08-26 18:19] LABS: Acetaminophen < 15 mcg/mL; Alcohol < 10 mg/dL (<10); Salicylate < 2.50 mg/dL (<30)
[2018-08-26 18:33] LABS: TSH (Thyroid Stimulating Horm) 0.94 mcIU/mL (0.34-5.60)
[2018-08-26] MEDS ORDERED: Ibuprofen TAB* 600 MG PO ONE (20:10)
[2018-08-26 20:26] VITALS: BP 147/86
== END 2018-08-26 20:25 | disposition home or self-care (01) ==
LOC: ED 16:46
DX: M72.2 Plantar fascial fibromatosis (principal); F31.9 Bipolar disorder, unspecified; R10.2 Pelvic and perineal pain; M25.572 Pain in left ankle and joints of left foot; G47.00 Insomnia, unspecified; I10 Essential (primary) hypertension; J44.9 Chronic obstructive pulmonary disease, unspecified; F17.210 Nicotine dependence, cigarettes, uncomplicated
CPT/HCPCS: 36415; 80053; 80320; 80329; 84443; 85025; 99284; A9270-GY; G0480